=== PATIENT | female | born 1970 | race Caucasian/White ===

== ENCOUNTER 2021-02-12 10:25 | Day surgery (SDC) | payer OTHER, SELFPAY ==
[2021-02-09 08:28] VITALS: BMI 36.8
--- NOTE | 2021-02-10 15:16 | HO.ANESPROP2 ---
Documented by User: Jacqueline Pavon 02/10/21 15:17 HPI - Anesthesia Eval Consult details Narrative: 50yo F for Colonoscopy [facility] Past Medical History Medical History (Updated 02/09/21 @ 08:27 by Allyson Godinez) Arthritis Surgical History Surgical History (Updated 02/09/21 @ 08:27 by Allyson Godinez) H/O colonoscopy History of esophagogastroduodenoscopy (EGD) Hx of bilateral breast reduction surgery Hx of section Hx of laparoscopic gastric banding Hx of repair of left rotator cuff Social History Social History (Updated 02/09/21 @ 08:27 by Allyson Godinez) Smoking Status: Never smoker Second Hand Smoke Exposure: Yes Substance Use Frequency: Occasionally Advance Directives: No Advance Directives Information Provided: Yes Meds Allergies Allergy/AdvReac Type Severity Reaction Status Date / Time oxycodone [From PERCOCET] Allergy Intermediate IRRITABILITY, Verified 02/12/21 11:24 RASH meperidine [Demerol] Allergy Unknown Unknown Verified 02/09/21 08:25 hydrocodone [From VICODIN] AdvReac Intermediate Rash Verified 02/12/21 11:23 Home Medications Medication Instructions Recorded Confirmed Last Taken Type duloxetine 30 mg PO QAM 02/09/21 02/09/21 Unknown History duloxetine 60 mg PO QAM 02/09/21 02/09/21 Unknown History lorazepam 1 tab PO BID PRN 02/09/21 02/09/21 Unknown History pantoprazole 1 tab PO BID 02/09/21 02/09/21 Unknown History Exam Exam Date and Time: February 10, 2021 1516 Height,Weight and Vital Signs: Height 4 ft 9 in Weight 77.111 kg Assessment and Plan Assessment Anesthesia Assessment: Chart Reviewed Documented by User: Mary Villanueva 02/12/21 12:12 [facility] Past Medical History Medical History (Updated 02/09/21 @ 08:27 by Allyson Godinez) Arthritis Family History Family history of problems with anesthesia: No Surgical History Surgical History (Updated 02/09/21 @ 08:27 by Allyson Godinez) H/O colonoscopy History of esophagogastroduodenoscopy (EGD) Hx of bilateral breast reduction surgery Hx of section Hx of laparoscopic gastric banding Hx of repair of left rotator cuff History of Problems with Anesthesia: No Social History Social History (Updated 02/09/21 @ 08:27 by Allyson Godinez) Smoking Status: Never smoker Second Hand Smoke Exposure: Yes Substance Use Frequency: Occasionally Advance Directives: No Advance Directives Information Provided: Yes Meds Allergies Allergy/AdvReac Type Severity Reaction Status Date / Time oxycodone [From PERCOCET] Allergy Intermediate IRRITABILITY, Verified 02/12/21 11:24 RASH meperidine [Demerol] Allergy Unknown Unknown Verified 02/09/21 08:25 hydrocodone [From VICODIN] AdvReac Intermediate Rash Verified 02/12/21 11:23 Home Medications Medication Instructions Recorded Confirmed Last Taken Type duloxetine 30 mg PO QAM 02/09/21 02/09/21 Unknown History duloxetine 60 mg PO QAM 02/09/21 02/09/21 Unknown History lorazepam 1 tab PO BID PRN 02/09/21 02/09/21 Unknown History pantoprazole 1 tab PO BID 02/09/21 02/09/21 Unknown History Exam Height,Weight and Vital Signs: Vital Signs Temp Pulse Resp BP Pulse Ox 98 F 66 20 115/57 L 99 02/12/21 11:03 02/12/21 11:03 02/12/21 11:03 02/12/21 11:03 02/12/21 11:03 Airway Mallampati Class: II TM Dist: >3cm Neck ROM: Full Loose/Missing/Broken Teeth: No Heart: RRR Lungs: CTAB Assessment and Plan Assessment Anesthesia Assessment: Anesthesia Plan Discussed and Chart Reviewed Final Anesthetic Review NPO: Yes ASA Class: II Final Preanesthetic Review: No Changes in Pt Med Stat, Meds/Allgs Chart Reviewed and Consent Obtained/Reviewed Patient Risk: Low Procedure Risk: Low Assessment/Block/Sedation in SS: Assess/Block/Sedation-SS Anesthetic Plan Anesthetic Plan: MAC: Disposition: Standard PACU
--- NOTE | 2021-02-12 10:25 | MHC.SHP ---
Pre-Procedural Eval Section B Chief Complaint: Hx of Colon Polyps Details of Present Illness: poor prep last colonoscopy Relevant Family History (Specify if Yes): No Relevant Social History: None Present Medications: see Short Stay Collaborative assessment Medical History: Significant History (GERD, barretts) History of Previous Operations: Relevant previous surgery/procedure and date(s) (H/O colonoscopy History of esophagogastroduodenoscopy (EGD) Hx of bilateral breast reduction surgery Hx of section Hx of laparoscopic gastric banding Hx of repair of left rotator cuff) Allergies: Allergies Allergy/AdvReac Type Severity Reaction Status Date / Time hydrocodone [From VICODIN] Allergy Intermediate ANXIETY Unverified 07/17/20 16:22 oxycodone [From PERCOCET] Allergy Intermediate IRRITABILITY, Unverified 07/17/20 16:22 RASH meperidine [Demerol] Allergy Unknown Unknown Verified 02/09/21 08:25 Review of Systems Sugical H&P ROS: Negative: Constitution, Cardiovascular, Respiratory, Neurological, Psychiatric, Hem-Onc, Allergic/Immunologic, Gastrointestinal, Genitourinary, Musculoskeletal, Integumentary, Endocrine and Eyes/Ears/Nose/Throat Exam Surgical H&P Exam: Normal: HEENT, Normal: Heart, Normal: Lungs, Normal: Extremities, Normal: Abdomen, Normal: Skin and Normal: Neurological Plan Diagnosis/Plan: Unchanged I have reviewed the history and physical and performed a pertinent physical examination on my patient. No changes have occurred unless specified.
[2021-02-12 11:03] VITALS: BP 115/57; PULSE 66; RESP 20; TEMP 36.6; O2SAT 99
[2021-02-12 11:05] VITALS: BMI 38.9
[2021-02-12] MEDS: Lactated Ringers 1,000 ML 100 ML IVCONT (11:21)
--- NOTE | 2021-02-12 12:05 | PM.OP ---
Brief Operative Note Date of Service: 02/12/21 Pre-op diagnosis: hx of poor prep on prior colonoscopy Post-op diagnosis: same Procedure: see op note Surgeon: Frannie Reno MD Anesthesia: MAC Estimated blood loss (mL): 0 Condition: stable Disposition: PACU
--- NOTE | 2021-02-12 12:06 | P.OP_ITS ---
Operative Note Operative Note Date of Service: 02/12/21 Narrative: Operative Information Procedure Description: Colonoscopy COLONOSCOPY Instrument: Olympus variable stiffness pediatric scope 190L Colonoscopy Monitoring: Vital signs and clinical assessment, continuous EKG monitoring, Pulse oximetry, Carbon Dioxide monitoring and blood pressure monitoring were done throughout the procedure. Colon withdrawal time was 19 minutes. Procedure: The patient was placed in the left lateral decubitis position and pre-procedure medications were administered. After a digital rectal examination of the ano-rectum, the video colonoscope was inserted into the rectum and advanced through the colon to the cecum/TI. The colonoscope was slowly withdrawn in a retrograde panoramic fashion and the colon mucosa was carefully examined including a retroflexed view of the rectum. Findings and interventions are described below. Procedure Difficulty:moderate due to looping Findings: Terminal Ileum-unable to intubate due to looping Cecum:normal Ascending Colon: normal Transverse Colon -normal Descending Colon:normal Sigmoid Colon: normal Rectum: Retroflexion with small to moderate sized internal hemorrhoids, grade I Anorectum - normal Colon preparation: [place] Bowel Preparation Scale Right colon; 2 Transverse colon: 2 Left colon; 1 (0 = Unprepared colon segment with mucosa not seen due to solid stool that cannot be cleared. 1 = Portion of mucosa of the colon segment seen, but other areas of the colon segment not well seen due to staining, residual stool and/or opaque liquid. 2 = Minor amount of residual staining, small fragments of stool and/or opaque liquid, but mucosa of colon segment seen well. 3 = Entire mucosa of colon segment seen well with no residual staining, small fragments of stool or opaque liquid) Impression and Post Procedure Diagnosis: internal hemorrhoids Plan: High fiber diet leaflet Avoid straining at stool, epsom salts and sitz bath, anusol supps or cream prn Repeat Colonoscopy in 3 years or earlier if clinically indicated, next time co nsider adult scope Above findings were reviewed with the patient and relevant handouts were provided if indicated.
[2021-02-12 12:11] VITALS: BP 148/64; PULSE 65; RESP 16; TEMP 36.7; O2SAT 100
[2021-02-12 12:26] VITALS: BP 131/64; PULSE 60; RESP 17; TEMP 36.7; O2SAT 100
== END 2021-02-12 13:02 | disposition home or self-care (01) ==
PROVIDERS: PCP Internal Medicine; Visit Provider Internal Medicine Gastroenterology
PROC: 0DJD8ZZ Inspection of Lower Intestinal Tract, Via Natural or Artificial Opening Endoscopic (ICD-10-PCS; CPT 45378; principal; 2021-02-12 11:20)
DX: Z12.11 Encounter for screening for malignant neoplasm of colon (principal); Z86.010 Personal history of colon polyps; K64.0 First degree hemorrhoids; K21.9 Gastro-esophageal reflux disease without esophagitis; Z98.84 Bariatric surgery status; Z79.899 Other long term (current) drug therapy; Z88.8 Allergy status to other drugs, medicaments and biological substances
CPT/HCPCS: 45378

== ENCOUNTER → 2021-02-27 09:20 | Outpatient (BNVA) | payer OTHER, SELFPAY | PROVIDERS: PCP Internal Medicine; Visit Provider Internal Medicine Gastroenterology ==

== ENCOUNTER 2022-04-26 08:12 | Outpatient (REF) | payer OTHER, SELFPAY ==
--- NOTE | ~2022-04-26 | XR_ITS ---
EXAMINATION: XR CHEST CLINICAL INFORMATION: Shortness of breath and congestion COMPARISON: Previous chest x-ray [address] from 2019 TECHNIQUE: 2 views of the chest were obtained. FINDINGS: The cardiac and mediastinal contours are normal. The lungs are clear. There is no pleural effusion or pneumothorax. There are surgical tacks or anchors projecting over the left humeral head. Bony structures are otherwise unremarkable. XR/XR chest 2V IMPRESSION: No evidence for acute disease in the chest.
--- NOTE | ~2022-04-26 | XR_ITS ---
EXAMINATION: XR SINUSES CLINICAL INFORMATION: Congestion and sinus pressure COMPARISON: None TECHNIQUE: 4 views of the paranasal sinuses FINDINGS: There is underaeration or hypoplasia of the right frontal sinus. Paranasal sinuses are otherwise well aerated and clear. No opacification or air-fluid levels just sinusitis is seen. Bony structures are unremarkable. XR/XR sinus min 3V IMPRESSION: Clear paranasal sinuses.
== END 2022-04-26 08:13 | disposition home or self-care (01) ==
LOC: HO.XRAY 08:12
PROVIDERS: Visit Provider Internal Medicine
DX: R05.9 Cough, unspecified (principal); R06.02 Shortness of breath; R09.89 Other specified symptoms and signs involving the circulatory and respiratory systems
CPT/HCPCS: 70220; 71046

== ENCOUNTER 2024-06-29 09:13 | Outpatient (REF) | payer OTHER, SELFPAY ==
[2024-06-29 10:34] LABS: MANUAL DIFF FLAG NO
[2024-06-29 10:38] LABS: Basophils Absolute Auto 0.1 X10*3/uL (0.0-0.2); Basophils Percent Auto 1.1 % (0-2); Eosinophils Absolute Auto 0.1 X10*3/uL (0.0-0.4); Eosinophils Percent Auto 1.2 % (0-4); Hematocrit 40.8 % (37.0-47.0); Hemoglobin 14.2 g/dl (12.0-16.0); Imm Gran Abs Auto 0.02 X10*3/uL (0.00-0.03); Imm Gran Pct Auto 0.2 % (0.0-0.4); Lymphocytes Absolute Auto 3.1 X10*3/uL (1.2-4.9); Lymphocytes Percent Auto 36.6 % (20-40); Mean Corpuscular HGB Conc 34.8 g/dl (31.0-35.0); Mean Corpuscular Hemoglobin 32.4 pg (27.0-33.0); Mean Corpuscular Volume 93.2 fL (80.0-98.0); Mean Platelet Volume 10.6 fL (9.4-12.3); Monocytes Absolute Auto 0.7 X10*3/uL (0.1-1.2); Monocytes Percent Auto 7.9 % (2-11); Neutrophils Absolute Auto 4.4 x10*3/uL (2.0-8.3); Platelet Count 270 X10*3/uL (160-400); Red Blood Count 4.38 X10*6/uL (4.20-5.50); Red Cell Distribution Width 13.4 % (11.0-16.0); White Blood Count 8.4 X10*3/uL (4.8-10.8)
[2024-06-29 11:46] LABS: Alanine Aminotransferase 19 U/L (0-31); Albumin Level 4.2 g/dL (3.5-5.0); Alkaline Phosphatase 77 U/L (39-117); Anion Gap 7 (12-20); Aspartate Amino Transferase 23 U/L (5-31); Bilirubin Total 0.4 mg/dL (0.0-1.0); Blood Urea Nitrogen 11 mg/dL (9-16); Calcium 9.5 mg/dL (8.4-10.2); Carbon Dioxide 27 mmol/L (22-29); Chloride 110 mmol/L (96-108); Estimated Glomerular Filt Rate > 60; Glucose Random 96 mg/dL (60-115); Potassium 3.8 mmol/L (3.3-5.1); Sodium 140 mmol/L (135-145); Total Protein 7.3 g/dL (6.5-8.0)
[2024-06-29 12:03] LABS: Ferritin 60 ng/mL (10-250); TSH reflex Free T4 1.74 uIU/mL (0.32-4.0)
[2024-06-29 12:16] LABS: Folate 13.6 ng/mL (> or = 4.0); Vitamin B12 318 pg/mL (200-900)
[2024-07-03 12:53] LABS: IgA 191 mg/dL (47-310); IgG 1187 mg/dL (600-1640); IgM 134 mg/dL (50-300)
[2024-07-03 13:58] LABS: Transglutaminase Ab IgG <1.0 U/mL
[2024-07-03 14:03] LABS: Zinc 61 mcg/dL (60-130)
[2024-07-05 01:14] LABS: Vitamin A 61 mcg/dL (38-98)
[2024-07-05 10:33] LABS: Vitamin C 0.6 mg/dL (0.3-2.7)
[2024-07-06 08:03] LABS: Vitamin B1 9 nmol/L (8-30)
[2024-07-06 08:07] LABS: Alpha-Tocopherol 14.1 mg/L (5.7-19.9); Beta-Gamma Tocopherol 2.1 mg/L (<=4.3)
[2024-07-06 17:58] LABS: Vitamin K1 398 pg/mL (130-1500)
[2024-07-07 15:09] LABS: Nicotinamide <20 ng/mL (see note); Vit B3 - Nicotinic Acid <20 ng/mL (see note)
[2024-07-07 15:13] LABS: Vitamin B5 (Pantothenic Acid) 75 ng/mL (<275)
== END 2024-06-29 09:14 | disposition home or self-care (01) ==
LOC: HO.LAB 09:13
PROVIDERS: PCP Internal Medicine; Visit Provider Internal Medicine Gastroenterology
DX: K75.81 Nonalcoholic steatohepatitis (NASH) (principal); K22.70 Barrett's esophagus without dysplasia; K62.5 Hemorrhage of anus and rectum; E46 Unspecified protein-calorie malnutrition; R10.33 Periumbilical pain; G89.29 Other chronic pain
CPT/HCPCS: 36415; 80053; 82180; 82306; 82607; 82728; 82746; 82784; 84207; 84425; 84443; 84446; 84590; 84591; 84597; 84630; 85025; 86364

== ENCOUNTER 2024-06-29 09:13 | Outpatient (AMB) | payer OTHER, SELFPAY ==
--- NOTE | 2024-06-29 09:16 | A.OFFVIS_ITS ---
Vital Signs 06/29/24 09:17 Height 4 ft 9 in Weight 184 lb 4.903 oz BMI 39.9 BP 142/80 H Blood Pressure Location Rt brachial Position Sitting Pulse 68 Pulse Source Pulse Oximeter Pulse Oximetry (%) 97 Oxygen Delivery Method Room Air Intake Visit Reasons: follow up Greenfield's Esophagus Intake Note: Irbian presents in office today for a scheduled FUV. CC: Pt reports having sx consistent with a diverticulitis flare up. Pt states that they have been having consistent sx but have noticed that their sx have been getting worse instead of better. Bloating, mucus in the stool, nausea, abdominal cramping/pain, diarrhea, reported by pt. Photographic Platemaker Required: No Accompanied by: Self / Same As Patient Allergies oxycodone [From PERCOCET] Allergy (Intermediate, Verified 06/29/24 09:17) IRRITABILITY, RASH meperidine [Demerol] Allergy (Unknown, Verified 06/29/24 09:17) Unknown hydrocodone [From VICODIN] Adverse Reaction (Intermediate, Verified 06/29/24 09:17) Rash HPI HPI follow up Greenfield's Esophagus: Details: 53 yr old f being seen for f/u RECAP: index visit 07/2019 2 weeks of llq abdo pain, can be severe, like labor pains CT scan with diverticulitis 05/2019 in descending colon, also has lap band she had egd and colonoscopy 2017 and was told they were normal. I repeated EGD colonoscopy--she has h pylori (treated many times) and barretts w HGD, colonoscopy with poor prep she was referred to [facility] for RFA and is still being followed for the barretts--due to recurrent disease she was referred to [facility] and she had cryotherapy to areas of persistent high grade squamous dysplasia in proximal esophagus . I did repeat colonoscopy 2020 and it was clear of polyps, hemorrhoids were noted She is still seeing Freddy at [facility] for cryotherapy for her esophagus INTERIM: she feels well apart from the uncertainty of her esophgeal issues she had colonoscopy last year and was normal per her report at [facility] she has a lot of mucous on the stool, sometimes blood in stool as well she has chronic bloating, she has feeling she cant eat she has nausea sometimes as well EXAM: GENERAL: The patient is well developed and nontoxic. VITAL SIGNS:see workflow HEENT: Nonicteric sclerae, PERRLA, EOMI. Oropharynx clear. Moist mucous membranes. Conjunctivae appear well perfused. No thyroid mass. CHEST: Chest wall is nontender. HEART: Regular rate and rhythm without murmurs. LUNGS: Clear to auscultation bilaterally. ABDOMEN: Soft, positive bowel sounds, nontender, no organomegaly.no flank tenderness SKIN: No rash, no excessive bruising, petechiae, or purpura. NEUROLOGIC: Cranial nerves II-XII intact without motor/sensory deficit. Psych: normal affect Assessments 1. 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 bloating, satiety, and mucous AL --uncertain etiology, ?IBD, SIBO, CHO intolerance, motility PLAN: 1/ check labs as below 2/ GES 3/ CT e 4/trial of rifaximin and then probiotics 5/ get notes from [facility] Medical History Arthritis Surgical History History of cryosurgery Hx of bilateral breast reduction surgery Hx of repair of left rotator cuff Hx of section Hx of laparoscopic gastric banding History of esophagogastroduodenoscopy (EGD) H/O colonoscopy Social History Second Hand Smoke Exposure: Yes Physical Exam Vital Signs: Last Vital Signs Pulse 68 06/29/24 09:17 BP 142/80 H 06/29/24 09:17 Pulse Ox 97 06/29/24 09:17 Oxygen Delivery Method Room Air 06/29/24 09:17 BMI result Body Mass Index 39.9 Assessment & Plan Assessment & Plan (1) Greenfield esophagus: Code(s): K22.70 - Greenfield's esophagus without dysplasia Category: Medical Plan: see above (2) Rectal bleed: Code(s): K62.5 - Hemorrhage of anus and rectum Category: Medical Plan: see above (3) Malnutrition: Code(s): E46 - Unspecified protein-calorie malnutrition Category: Medical Plan: above Orders: Orders Comprehensive Met. Panel Today E46 - Unspecified protein-calorie malnutrition, K22.70 - Greenfield's esophagus without dysplasia, K62.5 - Hemorrhage of anus and rectum, K75.81 - Nonalcoholic steatohepatitis (MARIE) Vitamin A Today E46 - Unspecified protein-calorie malnutrition, K22.70 - Ba rrett's esophagus without dysplasia, K62.5 - Hemorrhage of anus and rectum Vitamin B1 Today E46 - Unspecified protein-calorie malnutrition, K22.70 - Greenfield's esophagus without dysplasia, K62.5 - Hemorrhage of anus and rectum Vitamin B12 and Folate Today E46 - Unspecified protein-calorie malnutrition, K22.70 - Greenfield's esophagus without dysplasia, K62.5 - Hemorrhage of anus and rectum Vitamin B3 (Niacin) Today E46 - Unspecified protein-calorie malnutrition, K22.70 - Greenfield's esophagus without dysplasia, K62.5 - Hemorrhage of anus and rectum Vitamin B6 Today E46 - Unspecified protein-calorie malnutrition, K22.70 - Greenfield's esophagus without dysplasia, K62.5 - Hemorrhage of anus and rectum Vitamin C Today E46 - Unspecified protein-calorie malnutrition, K22.70 - Greenfield's esophagus without dysplasia, K62.5 - Hemorrhage of anus and rectum Vitamin E Today E46 - Unspecified protein-calorie malnutrition, K22.70 - Greenfield's esophagus without dysplasia, K62.5 - Hemorrhage of anus and rectum Zinc Today E46 - Unspecified protein-calorie malnutrition, K22.70 - Greenfield's esophagus without dysplasia, K62.5 - Hemorrhage of anus and rectum Ferritin Today E46 - Unspecified protein-calorie malnutrition, K22.70 - Greenfield's esophagus without dysplasia, K62.5 - Hemorrhage of anus and rectum TSH reflex Free T4 Today E46 - Unspecified protein-calorie malnutrition, K22.70 - Greenfield's esophagus without dysplasia, K62.5 - Hemorrhage of anus and rectum CT enterography Today R10.33 - Periumbilical pain NM gastric emptying study Today R68.81 - Early satiety Complete Blood Count Auto Diff Today E46 - Unspecified protein-calorie malnutrition, K22.70 - Greenfield's esophagus without dysplasia, K62.5 - Hemorrhage of anus and rectum Vitamin B5 (Pantothenic Acid) Today E46 - Unspecified protein-calorie malnutrition, K22.70 - Greenfield's esophagus without dysplasia, K62.5 - Hemorrhage of anus and rectum Vitamin D 25-OH Total Today E46 - Unspecified protein-calorie malnutrition, K22.70 - Greenfield's esophagus without dysplasia, K62.5 - Hemorrhage of anus and rectum Vitamin K1 Today E46 - Unspecified protein-calorie malnutrition, K22.70 - Greenfield's esophagus without dysplasia, K62.5 - Hemorrhage of anus and rectum Immunoglobulins,IgG IgA IgM Today E46 - Unspecified protein-calorie malnutrition, K22.70 - Greenfield's esophagus without dysplasia, K62.5 - Hemorrhage of anus and rectum Lactoferrin, Fecal, Quant. Today E46 - Unspecified protein-calorie malnutrition, K22.70 - Greenfield's esophagus without dysplasia, K51.50 - Left sided colitis without complications, K62.5 - Hemorrhage of anus and rectum Transglutaminase Ab IgG Today E46 - Unspecified protein-calorie malnutrition, G89.29 - Other chronic pain, K22.70 - Greenfield's esophagus without dysplasia, K62.5 - Hemorrhage of anus and rectum, R10.33 - Periumbilical pain Medications: New rifaximin 550 mg PO TID 42 tabs 0RF 2 weeks Coding Level of Care Code Est Pt Level 4 (96299) Diagnoses Greenfield esophagus K22.70 Rectal bleed K62.5 Malnutrition E46
[2024-06-29 09:17] VITALS: BP 142/80; PULSE 68; O2SAT 97; BMI 39.9
== END 2024-06-29 09:42 | disposition home or self-care (01) ==
PROVIDERS: PCP Internal Medicine; Visit Provider Internal Medicine Gastroenterology
DX: K22.70 Barrett's esophagus without dysplasia (principal); K62.5 Hemorrhage of anus and rectum; E46 Unspecified protein-calorie malnutrition
CPT/HCPCS: 99214

== ENCOUNTER → 2024-08-14 08:18 | Outpatient (REF) | payer OTHER, SELFPAY ==
--- NOTE | ~2024-08-14 | NM_ITS ---
EXAMINATION: NM RADIONUCLIDE SOLID FOOD GASTRIC EMPTYING 4-HOUR STUDY CLINICAL INFORMATION: Early satiety. COMPARISON: None TECHNIQUE: A standard meal consisting of 4 oz of Egg Beaters brand tagged with 800 microcuries Tc-99m Sulfur Colloid, 8 oz water and 1 1/2 of toast with jelly was administered orally to the patient. Images were obtained using a dual head gamma camera in the anterior and posterior projections over of the stomach immediately post ingestion and at hourly intervals up to 4 hours post ingestion. The anterior and posterior counts at each time interval were averaged using the geometric mean and expressed as percentage of the immediate post ingestion counts. FINDINGS: There is good visualization of activity in the stomach immediately post ingestion. As the study progresses, there is good clearance of activity from the stomach and visualization of progressively increasing small bowel activity. By the end of the study, there is significant retention noted in the stomach. Retention in the stomach at each time interval was: 1 hour 71% (normal 37%-90%) 2 hours 54% (normal 30%-60%) 3 hours 42% 4 hours 33% (normal 0%-10%) AK/AK gastric emptying study IMPRESSION: Abnormal grade 2 delayed 4-hour solid food gastric emptying study. For solid meal, rapid gastric emptying is less than 30% at 60 minutes. Delayed gastric emptying criteria is more than 60% remaining at 120 minutes or more than 10% at 240 minutes. The 4-hour value is the best discriminator of a normal or abnormal result). Gastric emptying study grading per JNMT Consensus Recommendations in 2008 (https://tech.snmjournals.org/content/36/1/44) Grade 1 (mild retention): 11-20% at 4h Grade 2 (moderate retention): 21-35% at 4h Grade 3 (severe retention): 36-50% at 4h Grade 4 (very severe retention): >50% retention at 4h Electronically signed by: Taylor Crowder MD 08/20/2024 12:05 PM EDT
== END ==
LOC: HO.NUCMED 08:18
PROVIDERS: PCP Internal Medicine; Visit Provider Internal Medicine Gastroenterology
DX: R68.81 Early satiety (principal)
CPT/HCPCS: 78264; A9541

== ENCOUNTER 2024-08-21 09:23 | Outpatient (REF) | payer OTHER, SELFPAY ==
--- NOTE | ~2024-08-21 | CT_ITS ---
EXAMINATION: CT ABDOMEN AND PELVIS WITHOUT IV CONTRAST CLINICAL INFORMATION: Periumbilical pain COMPARISON: None TECHNIQUE: Multiple axial images were obtained from the superior aspect of the liver through the pubic symphysis without intravenous contrast. Images were evaluated on independent dedicated 3-D workstation and 3-D images were reconstructed with concurrent radiologist supervision and subsequently interpreted. Oral contrast was not administered. This CT examination was performed using dose optimization techniques as appropriate, variously including the following: *Automated exposure control *Adjustment of mA and/or kV according to patient size (this includes techniques or standardized protocols for targeted exams where dose is matched to indication/reason for exam; i.e. extremities or head) *Use of iterative reconstruction technique DLP: 805 mGy-cm FINDINGS: LUNG BASES: Trace bilateral pleural effusions. Atelectatic changes. CARDIOMEDIASTINUM: The visualized heart is normal in size without pericardial effusion. No coronary artery calcification. LIVER: Homogeneous in attenuation. Normal in size. GALLBLADDER: Noninflamed. BILIARY SYSTEM: No intrahepatic or extrahepatic biliary dilation. PANCREAS: Homogeneous in attenuation. SPLEEN: Normal in size. GENITOURINARY: No contour deforming masses. No perinephric fluid collection. No renal calculi. No hydroureteronephrosis. ADRENAL GLANDS: Unremarkable. REPRODUCTIVE: Uterus and and bilateral adnexa are unremarkable. GASTROINTESTINAL: Circumferential mural thickening of the distal esophagus of approximately 1 cm. The visualized alimentary tract is normal in course. No evidence of obstruction. APPENDIX: The appendix is seen in its entirety and is unremarkable. PERITONEUM: No pneumoperitoneum. No intra-abdominal fluid collection. VASCULATURE: No abdominal aortic aneurysm. LYMPH NODES: No pathologically enlarged abdominal or pelvic lymph nodes. SOFT TISSUES/MUSCULOSKELETAL: Small fat-containing umbilical hernia with periumbilical inflammatory stranding. There is no acute fracture or significant focal osseous lesion. CT/CT abdomen pelvis wo IV con IMPRESSION: 1. Small fat-containing umbilical hernia with mild inflammatory stranding. 2. Circumferential thickening of the distal esophagus. Correlate with symptoms of gastroesophageal reflux disease and prior endoscopy. Underlying malignancy not excluded. 3. Trace bilateral pleural effusions. Fleischner guidelines were followed. Electronically signed by: Erik Carter DO 09/18/2024 07:16 PM EST
[2024-08-21] MEDS: Sorbitol/Mannit/Xanth Imaging 500 ML LIQUID 1500 ML PO (11:07)
[2024-08-23 09:09] LABS: Creatinine POC 0.9 mg/dL (0.5-1.4); GFR POC > 60
== END 2024-08-21 09:24 | disposition home or self-care (01) ==
LOC: HO.CT 09:23
PROVIDERS: PCP Internal Medicine; Visit Provider Internal Medicine Gastroenterology
DX: R10.33 Periumbilical pain (principal)
CPT/HCPCS: 74176; 82565

== ENCOUNTER 2024-09-17 13:06 | Outpatient (AMB) | payer OTHER, SELFPAY ==
--- NOTE | 2024-09-17 13:06 | MHC.OFFVIS ---
Intake Visit Reasons: Dysphagia Intake Note: Irbian presents in the office as a follow up for her dysphagia. Allergies oxycodone [From PERCOCET] Allergy (Intermediate, Verified 09/17/24 13:08) IRRITABILITY, RASH meperidine [Demerol] Allergy (Unknown, Verified 09/17/24 13:08) Unknown hydrocodone [From VICODIN] Adverse Reaction (Intermediate, Verified 09/17/24 13:08) Rash HPI HPI Dysphagia: Details: 53 yr old f being called for f/u RECAP: index visit 07/2019 2 weeks of llq abdo pain, like labor pains CT scan with diverticulitis 05/2019 in descending colon, also has lap band she had egd and colonoscopy 2017 and was told they were normal. I repeated EGD colonoscopy--she has h pylori (treated many times) and barretts w HGD, colonoscopy with poor prep she was referred to [facility] for RFA and is still being followed for the barretts--due to recurrent disease she was referred to [facility] and she had cryotherapy to areas of persistent high grade squamous dysplasia in proximal esophagus . I did repeat colonoscopy 2020 and it was clear of polyps, hemorrhoids were noted She is still seeing Freddy at [facility] for cryotherapy for her esophagus I ordered GES: 08/23- pos 30% at 4 hrs INTERIM: She has been having more acid reflux and dysphagia since cryotherapy has apptm for dilation and repeat bx she saw a thoracic surgeon and esophagectomy might be the next step she does have satiety and reflux EXAM: GENERAL: The patient is well developed and nontoxic, talking easily, good color Assessments 1. Barretts esophagus and high grade squamous cell dysplasia being seen at [facility] 2. bloating, satiety, likely 2.2 gastroparesis possibly from 1. above --I ordered a Ct scan,not read yet but no mass seen to my read, dilated stomach noted. PLAN: 1/ f/u with [facility] 2/ discussed low fat and low fober diet, might need G-POEM or pyloroplasty, vs medical rx with regaruna gomez 3/ check labs for 2ry causes of gastroparesis PFSH Medical History Arthritis Surgical History History of cryosurgery Hx of bilateral breast reduction surgery Hx of repair of left rotator cuff Hx of section Hx of laparoscopic gastric banding History of esophagogastroduodenoscopy (EGD) H/O colonoscopy Social History Second Hand Smoke Exposure: Yes Telehealth Telehealth Telehealth Platform: [facility] Location of provider rendering services: practice address Location of patient: address on file Patient Identification confirmed using: Name, : Yes Telehealth method: video Patient verbally consented to treatment: Yes Patient verbally consented to billing insurance company: Yes Patient informed of any privacy concerns related to visit: Yes Minutes spent on Phone/Video with Pt.: 11 Assessment & Plan Assessment & Plan (1) Greenfield esophagus: Code(s): K22.70 - Greenfield's esophagus without dysplasia Category: Medical Plan: see above Orders: Orders Complete Blood Count Auto Diff Today E46 - Unspecified protein-calorie malnutrition Ferritin Today E46 - Unspecified protein-calorie malnutrition Calcium, Ionized Today E46 - Unspecified protein-calorie malnutrition, E83.52 - Hypercalcemia Magnesium Today E46 - Unspecified protein-calorie malnutrition BETH Reflex Titer and Pattern Today E46 - Unspecified protein-calorie malnutrition, R79.82 - Elevated C-reactive protein (CRP) HU Antibody Today E46 - Unspecified protein-calorie malnutrition Yo Antibody Today E46 - Unspecified protein-calorie malnutrition Zinc Today E46 - Unspecified protein-calorie malnutrition Comprehensive Met. Panel Today E46 - Unspecified protein-calorie malnutrition, K75.81 - Nonalcoholic steatohepatitis (MARIE) TSH reflex Free T4 Today E46 - Unspecified protein-calorie malnutrition Lyme IgG/IgM w/reflex to WB Today E46 - Unspecified protein-calorie malnutrition Coding Level of Care Code Tele Est Pt Level 3 (11420) Diagnoses Greenfield esophagus K22.70
== END 2024-09-17 16:09 | disposition home or self-care (01) ==
LOC: HO.HGI 13:06
PROVIDERS: PCP Internal Medicine; Visit Provider Internal Medicine Gastroenterology
DX: K22.70 Barrett's esophagus without dysplasia (principal)
CPT/HCPCS: 99213

== ENCOUNTER → 2024-09-17 13:06 | Outpatient (BNVA) | payer OTHER, SELFPAY | PROVIDERS: PCP Internal Medicine; Visit Provider Internal Medicine Gastroenterology ==

== ENCOUNTER 2024-09-18 08:50 | Outpatient (REF) | payer OTHER, SELFPAY ==
[2024-09-18 09:47] LABS: MANUAL DIFF FLAG NO
[2024-09-18 10:15] LABS: Basophils Absolute Auto 0.1 X10*3/uL (0.0-0.2); Basophils Percent Auto 1.5 % (0-2); Eosinophils Absolute Auto 0.3 X10*3/uL (0.0-0.4); Eosinophils Percent Auto 4.4 % (0-4); Hematocrit 41.6 % (37.0-47.0); Imm Gran Abs Auto 0.01 X10*3/uL (0.00-0.03); Imm Gran Pct Auto 0.1 % (0.0-0.4); Lymphocytes Absolute Auto 2.8 X10*3/uL (1.2-4.9); Lymphocytes Percent Auto 38.3 % (20-40); Mean Corpuscular HGB Conc 33.7 g/dl (31.0-35.0); Mean Corpuscular Hemoglobin 31.9 pg (27.0-33.0); Mean Corpuscular Volume 94.8 fL (80.0-98.0); Mean Platelet Volume 10.6 fL (9.4-12.3); Monocytes Absolute Auto 0.6 X10*3/uL (0.1-1.2); Monocytes Percent Auto 8.2 % (2-11); Neutrophils Absolute Auto 3.5 x10*3/uL (2.0-8.3); Neutrophils Percent Auto 47.5 % (45-73); Platelet Count 252 X10*3/uL (160-400); Red Blood Count 4.39 X10*6/uL (4.20-5.50); Red Cell Distribution Width 13.2 % (11.0-16.0); White Blood Count 7.3 X10*3/uL (4.8-10.8)
[2024-09-18 12:10] LABS: Alanine Aminotransferase 18 U/L (0-31); Albumin Level 4.1 g/dL (3.5-5.0); Alkaline Phosphatase 72 U/L (39-117); Anion Gap 8 (12-20); Aspartate Amino Transferase 25 U/L (5-31); Bilirubin Total 0.6 mg/dL (0.0-1.0); Blood Urea Nitrogen 8 mg/dL (9-16); Calcium 9.1 mg/dL (8.4-10.2); Carbon Dioxide 28 mmol/L (22-29); Chloride 110 mmol/L (96-108); Estimated Glomerular Filt Rate > 60; Ferritin 73 ng/mL (10-250); Glucose Random 93 mg/dL (60-115); Potassium 3.9 mmol/L (3.3-5.1); Sodium 142 mmol/L (135-145); TSH reflex Free T4 1.51 uIU/mL (0.32-4.0)
[2024-09-19 18:34] LABS: Lyme Abs Screen <0.90 index
[2024-09-20 11:23] LABS: Anti Nuclear Antibody Screen NEGATIVE (NEGATIVE)
[2024-09-20 14:32] LABS: Calcium, Ionized 5.3 mg/dL (4.7-5.5)
[2024-09-21 13:34] LABS: Zinc 66 mcg/dL (60-130)
[2024-10-10 19:18] LABS: Hu Antibody Screen, IFA Serum NEGATIVE (NEGATIVE); Yo Antibody, Serum Screen NEGATIVE (NEGATIVE)
== END 2024-09-18 08:51 | disposition home or self-care (01) ==
LOC: HO.LAB 08:50
PROVIDERS: PCP Internal Medicine; Visit Provider Internal Medicine Gastroenterology
DX: E46 Unspecified protein-calorie malnutrition (principal); E83.52 Hypercalcemia; R79.82 Elevated C-reactive protein (CRP); K75.81 Nonalcoholic steatohepatitis (NASH)
CPT/HCPCS: 36415; 80053; 82330; 82728; 83735; 84181; 84443; 84630; 85025; 86038; 86255; 86256; 86617; 86618

== ENCOUNTER 2024-10-08 09:25 | Outpatient (AMB) | payer OTHER, SELFPAY ==
--- NOTE | 2024-10-08 09:27 | MHC.OFFVIS ---
Vital Signs 10/08/24 09:30 Height 4 ft 9 in Weight 174 lb 2.643 oz BMI 37.7 BP 118/53 L Blood Pressure Location Lt brachial Position Sitting Pulse 71 Intake Visit Reasons: 4 month follow up Intake Note: Irbian presents in the office as a 4 month follow up. CC: States that she has an appt tomorrow to have her esophagus stretched tomorrow at [facility]. Bench Assembler Required: No Allergies oxycodone [From PERCOCET] Allergy (Intermediate, Verified 10/08/24 09:34) IRRITABILITY, RASH meperidine [Demerol] Allergy (Unknown, Verified 10/08/24 09:34) Unknown hydrocodone [From VICODIN] Adverse Reaction (Intermediate, Verified 10/08/24 09:34) Rash HPI HPI 4 month follow up: Details: 53 yr old f being called for f/u RECAP: index visit 07/2019 2 weeks of llq abdo pain, like labor pains CT scan with diverticulitis 05/2019 in descending colon, also has lap band she had egd and colonoscopy 2017 and was told they were normal. I repeated EGD colonoscopy--she has h pylori (treated many times) and barretts w HGD, colonoscopy with poor prep she was referred to [facility] for RFA and is still being followed for the barretts--due to recurrent disease she was referred to [facility] and she had cryotherapy to areas of persistent high grade squamous dysplasia in proximal esophagus . I did repeat colonoscopy 2020 and it was clear of polyps, hemorrhoids were noted She is still seeing Freddy at [facility] for cryotherapy for her esophagus I ordered GES: 08/23- pos 30% at 4 hrs INTERIM: she has been getting dilation with Dr Amaya recovering slowly taking liquids taking augmentin for head cold talked about surgical options for her condition EXAM: GENERAL: The patient is well developed and nontoxic. VITAL SIGNS:see workflow HEENT: Nonicteric sclerae, PERRLA, EOMI. Oropharynx clear. Moist mucous membranes. Conjunctivae appear well perfused. No thyroid mass. CHEST: Chest wall is nontender. HEART: Regular rate and rhythm without murmurs. LUNGS: Clear to auscultation bilaterally. ABDOMEN: Soft, positive bowel sounds, nontender, no organomegaly.no flank tenderness SKIN: No rash, no excessive bruising, petechiae, or purpura. NEUROLOGIC: Cranial nerves II-XII intact without motor/sensory deficit. Psych: normal affect Assessments 1. Barretts esophagus and high grade squamous cell dysplasia being seen at [facility] and getting dilation 2. bloating, satiety, likely 2.2 gastroparesis possibly from 1. above PLAN: 1/ f/u with [facility] with dilation 2/ she wants second opinion [facility] 3/ change PPI to capsule [facility] Medical History Arthritis Surgical History History of cryosurgery Hx of bilateral breast reduction surgery Hx of repair of left rotator cuff Hx of section Hx of laparoscopic gastric banding History of esophagogastroduodenoscopy (EGD) H/O colonoscopy Social History Second Hand Smoke Exposure: Yes Assessment & Plan Assessment & Plan (1) Greenfield esophagus: Code(s): K22.70 - Greenfield's esophagus without dysplasia Category: Medical Plan: see above Coding Level of Care Code Est Pt Level 3 (86462) Diagnoses Greenfield esophagus K22.70
[2024-10-08 09:30] VITALS: BP 118/53; PULSE 71; BMI 37.7
== END 2024-10-08 10:04 | disposition home or self-care (01) ==
PROVIDERS: PCP Internal Medicine; Visit Provider Internal Medicine Gastroenterology
DX: K22.70 Barrett's esophagus without dysplasia (principal)
CPT/HCPCS: 99213

== ENCOUNTER 2024-12-24 12:36 | Outpatient (AMB) | payer OTHER, SELFPAY ==
--- NOTE | 2024-12-24 12:36 | A.OFFVIS_ITS ---
Intake Visit Reasons: f/u rescheduled Intake Note: Irbian presents as a video for a follow up for gastroparesis. C: Gastroparesis - she heard from [facility] and wants to discuss this and wants to know what to do next. Allergies oxycodone [From PERCOCET] Allergy (Intermediate, Verified 12/24/24 12:36) IRRITABILITY, RASH meperidine [Demerol] Allergy (Unknown, Verified 12/24/24 12:36) Unknown hydrocodone [From VICODIN] Adverse Reaction (Intermediate, Verified 12/24/24 12 :36) Rash HPI HPI f/u rescheduled: Details: 53 yr old f being called for f/u RECAP: index visit 07/2019 2 weeks of llq abdo pain, like labor pains CT scan with diverticulitis 05/2019 in descending colon, also has lap band she had egd and colonoscopy 2017 and was told they were normal. I repeated EGD colonoscopy--she has h pylori (treated many times) and barretts w HGD, colonoscopy with poor prep she was referred to [facility] for RFA and is still being followed for the inderjit ts--due to recurrent disease she was referred to [facility] and she had cryotherapy to areas of persistent high grade squamous dysplasia in proximal esophagus . I did repeat colonoscopy 2020 and it was clear of polyps, hemorrhoids were noted She is still seeing Freddy at [facility] for cryotherapy for her esophagus I ordered GES: 08/23- pos 30% at 4 hrs INTERIM: she has been on and off regards her esophagus and surgery options She is waiting to see [facility] she is taking PPI now she has issues with constipation but life long issue she takes prune juice -- miralax sparingly EXAM: GENERAL: The patient is well developed and nontoxic. Assessments 1. Barretts esophagus and high grade squamous cell dysplasia being seen at [facility] and getting dilation--suggested to have esophagectomy 2. bloating, satiety, likely 2.2 gastroparesis possibly from 1. above [facility]AN[facility] 2/ trial of motegrity see fi helps constipation and gastroparesis PFSH Medical History Arthritis Surgical History History of cryosurgery Hx of bilateral breast reduction surgery Hx of repair of left rotator cuff Hx of section Hx of laparoscopic gastric banding History of esophagogastroduodenoscopy (EGD) H/O colonoscopy Social History Second Hand Smoke Exposure: Yes Telehealth Telehealth Telehealth [facility] Location of provider rendering services: practice address Location of patient: address on file Patient Identification confirmed using: Name, : Yes Telehealth method: video Patient verbally consented to treatment: Yes Patient verbally consented to billing insurance company: Yes Patient informed of any privacy concerns related to visit: Yes Minutes spent on Phone/Video with Pt.: 6 Assessment & Plan Assessment & Plan (1) Gastroparesis: Code(s): K31.84 - Gastroparesis Category: Medical Plan: as above Medications: New prucalopride (Motegrity) 1 mg PO DAILY 30 tabs 3RF Coding Level of Care Code Tele Est Pt Level 3 (54785) Diagnoses Gastroparesis K31.84
--- OUTSIDE RECORDS SUMMARY | 2024-12-24 14:16 | XMS_ITS | Encounter Summary ---
Author Organization [facility] Address [address] [place] [address] Care Team Providers Care Dial Maker Name Role Phone Chan Wilson Primary Care Provider [phone] Encounter Details Date Type Department Care Team (Late st Contact Info) Description 06/26/2021 Orders Only [facility] Interventional Radiology [address] [place] [address] Kirill Schuster MD [address] [place] [address] [id number] Social History Tobacco Use Types Packs/Day Years Used Date Smoking Tobacco: Never Smokeless Tobacco: Never Alcohol Use Standard Drinks/Week Comments Yes 0 (1 standard drink = 0.6 oz pur e alcohol) SOCIALLY Comments No Sex and Gender Information Value Date Recorded Sex Assigned at Female 12/02/2020 12:19 AM EST Legal Sex Female 8:28 AM EST Gender Identity Female 12/02/2020 12:19 AM EST Sexual Orientation Straight 07/30/2020 9: 05 AM EDT documented as of this encounter Plan of Treatment Upcoming Encounters Date Type Department Care Team (Latest Contact Info) Description 03/04/2025 1:00 PM EDT Pre-Admission Testing [facility] Pre Surgical Center [address] [place] [address] 03/18/2025 12:30 PM EDT Hospital Encounter [facility] Endoscopy [address] [place] [address] Sudheer Hayes MD [address] [place] [address] 03/18/2025 12:30 PM EDT - 03/18/2025 1:20 PM EDT Surgery [facility] Endoscopy [address] [place] [address] Sudheer Hayes MD [address] [place] [address] UPPER ENDOSCOPY; DIAGNOSTIC WITH BRUSH/WASH (SP) WITH POSSIBLE MODERATE SEDATION [74302 (CPT??)] Scheduled Procedures Name Priority Associated Diagnoses Date/Ti me UPPER ENDOSCOPY; DIAGNOSTIC WITH BRUSH/WASH (SP) WITH POSSIBLE MODERATE SEDATION History of Greenfield's esophagus 03/18/2025 12:30 PM EDT documented as of this encounter Visit Diagnoses Not on filedocumented in this encounter Care Teams Dial Maker Relationship Specialty Start Date End Date Chan Wilson [address] [place] [address] PCP - General Internal Medicine 01/09/20 documented as of this encounter
--- OUTSIDE RECORDS SUMMARY | 2024-12-24 14:16 | XMS_ITS | Encounter Summary ---
Author Organization [facility] Address [address] [place] [address] Care Team Providers Care Tax Assistant Name Role Phone [place] Jiménezren Jane Primary Care Provider [phone] Encounter Details Date Type Department Care Team (Late st Contact Info) Description 11/10/2021 [employer] Message [facility] Endoscopy [address] [place] [address] [employer], Generic Provider [address] [place] [address] instructions Social History Tobacco Use Types Packs/Day Years [...] Description 03/04/2025 1:00 PM EDT Pre-Admission Testing [facility] Pre Surgical Center [address] [facility] [address] [place] [address] 03/18/2025 12:30 PM EDT Hospital Encounter [facility] Endoscopy [address] [place] [address] Sudheer Hayes MD [address] [place] [address] 03/18/2025 12:30 PM EDT - 03/18/2025 1:20 PM EDT Surgery [facility] Endoscopy [address] [place] [address] Sudheer Hayes MD [address] [place] [address] UPPER ENDOSCOPY; DIAGNOSTIC WITH BRUSH/WASH (SP) WITH POSSIBLE MODERATE SEDATION [76846 (CPT??)] Scheduled Procedures Name Priority Associated Diagnoses Date/Ti me UPPER ENDOSCOPY; DIAGNOSTIC WITH BRUSH/WASH (SP) WITH POSSIBLE MODERATE SEDATION History of Greenfield's esophagus 03/18/2025 12:30 PM EDT documented as of this encounter Visit Diagnoses Not on filedocumented in this encounter Care Teams Tax Assistant Relationship Specialty Start Date End Date Chan Wilson [address] [place] [address] PCP - General Internal Medicine 01/09/20 documented as of this encounter
--- OUTSIDE RECORDS SUMMARY | 2024-12-24 14:16 | XMS_ITS | Encounter Summary ---
Author Organization [facility] Address [address] [place] [address] Care Team Providers Care Sewing Machine Repairer Name Role Phone [place] Primary Care Provider [phone] Encounter Details Date Type Department Care Team (Late st Contact Info) Description 09/16/2023 [employer] Message [facility] Revenue Cycle Management [address] [place] [address] [employer], Generic Provider [address] [phone] pay plan Social History Tobacco Use Types Packs/Day Years Used Date Smoking Tobacco: Never Smokeless Tobacco: Never Alcohol Use Standard Drinks/Week Comments Yes 0 (1 standard drink = 0.6 oz pur e alcohol) SOCIALLY 2/wk Comments No Sex and Gender Information Value Date Recorded Sex Assigned at Female 12/02/2020 12:19 AM EST Legal Sex Female 8:28 AM EST Gender Identity Female 12/02/2020 12:19 AM EST Sexual Orientation Straight 07/30/2020 9: 05 AM EDT documented as of this encounter Plan of Treatment Upcoming Encounters Date Type Department Care Team (Latest Contact Info) Description 03/04/2025 1:00 PM EDT Pre-Admission Testing [facility] Pre Surgical Center [address] [facility] [address] [place] [address] 03/18/2025 12:30 PM EDT Hospital Encounter [facility] Endoscopy [address] [place] [address] Sudheer Hayes MD [address] [place] [address] 03/18/2025 12:30 PM EDT - 03/18/2025 1:20 PM EDT Surgery [facility] Endoscopy [address] [place] [address] Sudheer Hayes MD [address] [place] [address] UPPER ENDOSCOPY; DIAGNOSTIC WITH BRUSH/WASH (SP) WITH POSSIBLE MODERATE SEDATION [71277 (CPT??)] Scheduled Procedures Name Priority Associated Diagnoses Date/Ti me UPPER ENDOSCOPY; DIAGNOSTIC WITH BRUSH/WASH (SP) WITH POSSIBLE MODERATE SEDATION History of Greenfield's esophagus 03/18/2025 12:30 PM EDT documented as of this encounter Visit Diagnoses Not on filedocumented in this encounter Care Teams Sewing Machine Repairer Relationship Specialty Start Date End Date Chan Wilson [address] [place] [address] PCP - General Internal Medicine 01/09/20 documented as of this encounter
--- OUTSIDE RECORDS SUMMARY | 2024-12-24 14:16 | XMS_ITS | Encounter Summary ---
Author Organization [facility] Address [address] [place] [address] Care Team Providers Care Hot Kettle Tender Name Role Phone Chan Wilson Primary Care Provider [phone] Encounter Details Date Type Department Care Team (Late st Contact Info) Description 06/26/2021 Orders Only [facility] Interventional Radiology [address] [place] [address] Jovana Sullivan MD [address] [place] [address] Social History Tobacco Use Types Packs/Day Years [...] Description 03/04/2025 1:00 PM EDT Pre-Admission Testing [facility] Pre Surgical Center [address] [place] [address] 03/18/2025 12:30 PM EDT Hospital Encounter [facility] Endoscopy [address] [place] [address] Sudheer Hayes MD [address] [place] [address] 03/18/2025 12:30 PM EDT - 03/18/2025 1:20 PM EDT Surgery [facility] Endoscopy [address] [place] [address] Sudheer Hayes MD [address] [place] [address] UPPER ENDOSCOPY; DIAGNOSTIC WITH BRUSH/WASH (SP) WITH POSSIBLE MODERATE SEDATION [84341 (CPT??)] Scheduled Procedures Name Priority Associated Diagnoses Date/Ti me UPPER ENDOSCOPY; DIAGNOSTIC WITH BRUSH/WASH (SP) WITH POSSIBLE MODERATE SEDATION History of Greenfield's esophagus 03/18/2025 12:30 PM EDT documented as of this encounter Visit Diagnoses Not on filedocumented in this encounter Care Teams Hot Kettle Tender Relationship Specialty Start Date End Date Chan Wilson [address] [place] [address] PCP - General Internal Medicine 01/09/20 documented as of this encounter
--- OUTSIDE RECORDS SUMMARY | 2024-12-24 14:16 | XMS_ITS | Encounter Summary ---
Author Organization [facility] Address [address] [place] [address] Care Team Providers Care Client Services Specialist Name Role Phone [place] Rapids[place] Jane Primary Care Provider [phone] Encounter Details Date Type Department Care Team (Late st Contact Info) Description 09/20/2024 [employer] Message [facility] Revenue Cycle Management [address] [place] [address] [email or web address], Generic Provider [address] [place], [place] [phone] payment plan Social History Tobacco Use Types Packs/Day Years Used Date Smoking Tobacco: Never Smokeless Tobacco: Never Alcohol Use Standard Drinks/Week Comments Yes 0 (1 standard drink = 0.6 oz pur e alcohol) SOCIALLY 1/wk Comments No Sex and Gender Information Value Date Recorded Sex Assigned at Female 12/02/2020 12:19 AM EST Legal Sex Female 8:28 AM EST Gender Identity Female 12/02/2020 12:19 AM EST Sexual Orientation Straight 07/30/2020 9: 05 AM EDT documented as of this encounter Plan of Treatment Upcoming Encounters Date Type Department Care Team (Latest Contact Info) Description 03/04/2025 1:00 PM EDT Pre-Admission Testing [facility] Pre Surgical Center [address] [facility] [address] [place] [address] 03/18/2025 12:30 PM EDT Hospital Encounter [facility] Endoscopy [address] [place] [address] Sudheer Hayes MD [address] [place] [address] 03/18/2025 12:30 PM EDT - 03/18/2025 1:20 PM EDT Surgery [facility] Endoscopy [address] [place] [address] Sudheer Hayes MD [address] [place] [address] UPPER ENDOSCOPY; DIAGNOSTIC WITH BRUSH/WASH (SP) WITH POSSIBLE MODERATE SEDATION [24071 (CPT??)] Scheduled Procedures Name Priority Associated Diagnoses Date/Ti me UPPER ENDOSCOPY; DIAGNOSTIC WITH BRUSH/WASH (SP) WITH POSSIBLE MODERATE SEDATION History of Greenfield's esophagus 03/18/2025 12:30 PM EDT documented as of this encounter Visit Diagnoses Not on filedocumented in this encounter Care Teams Client Services Specialist Relationship Specialty Start Date End Date Chan Wilson [address] [place] [address] PCP - General Internal Medicine 01/09/20 documented as of this encounter
--- OUTSIDE RECORDS SUMMARY | 2024-12-24 14:16 | XMS_ITS | Encounter Summary ---
Author Organization [facility] Address [address] [place] [address] Care Team Providers Care Despatching And Receiving Clerk Name Role Phone Chidester, Chan Jane Primary Care Provider [phone] Encounter Details Date Type Department Care Team (Late st Contact Info) Description 11/10/2021 [employer] Message [facility] Endoscopy [address] [place] [address] [employer], Generic Provider [address] [place], [place] [phone] appointment information Social History Tobacco Use Types Packs/Day Years [...] Description 03/04/2025 1:00 PM EDT Pre-Admission Testing [facility] Pre Surgical Center [address] [facility] [address] [place] [address] 03/18/2025 12:30 PM EDT Hospital Encounter [facility] Endoscopy [address] [place] [address] Sudheer Hayes MD [address] [place] [address] 03/18/2025 12:30 PM EDT - 03/18/2025 1:20 PM EDT Surgery [facility] Endoscopy [address] [place] [address] Sudheer Hayes MD [address] [place] [address] UPPER ENDOSCOPY; DIAGNOSTIC WITH BRUSH/WASH (SP) WITH POSSIBLE MODERATE SEDATION [40947 (CPT??)] Scheduled Procedures Name Priority Associated Diagnoses Date/Ti me UPPER ENDOSCOPY; DIAGNOSTIC WITH BRUSH/WASH (SP) WITH POSSIBLE MODERATE SEDATION History of Greenfield's esophagus 03/18/2025 12:30 PM EDT documented as of this encounter Visit Diagnoses Not on filedocumented in this encounter Care Teams Despatching And Receiving Clerk Relationship Specialty Start Date End Date Chan Wilson [address] [place] [address] PCP - General Internal Medicine 01/09/20 documented as of this encounter
--- OUTSIDE RECORDS SUMMARY | 2024-12-24 14:16 | XMS_ITS | Encounter Summary ---
Author Organization [facility] Address [address] [place] [address] Care Team Providers Care Middle School Principal Name Role Phone [place] City[place] shah Primary Care Provider [phone] Encounter Details Date Type Department Care Team (Late st Contact Info) Description 11/02/2022 [employer] Message [facility] Revenue Cycle Management [address] [place] [address] [employer], Generic Provider [address] [phone] Payment Plan Social History Tobacco Use Types Packs/Day Years [...] Description 03/04/2025 1:00 PM EDT Pre-Admission Testing [facility] Pre Surgical Center [address] [facility] [address] [place] [address] 03/18/2025 12:30 PM EDT Hospital Encounter [facility] Endoscopy [address] [place] [address] Sudheer Hayes MD [address] [place] [address] 03/18/2025 12:30 PM EDT - 03/18/2025 1:20 PM EDT Surgery [facility] Endoscopy [address] [place] [address] Sudheer Hayes MD [address] [place] [address] UPPER ENDOSCOPY; DIAGNOSTIC WITH BRUSH/WASH (SP) WITH POSSIBLE MODERATE SEDATION [95982 (CPT??)] Scheduled Procedures Name Priority Associated Diagnoses Date/Ti me UPPER ENDOSCOPY; DIAGNOSTIC WITH BRUSH/WASH (SP) WITH POSSIBLE MODERATE SEDATION History of Greenfield's esophagus 03/18/2025 12:30 PM EDT documented as of this encounter Visit Diagnoses Not on filedocumented in this encounter Care Teams Middle School Principal Relationship Specialty Start Date End Date Chan Wilson [address] [place] [address] PCP - General Internal Medicine 01/09/20 documented as of this encounter
--- OUTSIDE RECORDS SUMMARY | 2024-12-24 14:16 | XMS_ITS | Encounter Summary ---
Author Organization [facility] Address [address] [place] [address] Care Team Providers Care Air And Missile Defense Crewmember Name Role Phone [place]villeChan shah Primary Care Provider [phone] Encounter Details Date Type Department Care Team (Late st Contact Info) Description 12/13/2024 Results Follow-Up [facility] [address] [place] [address] Meterman: Sudheer Linda MD [address] [place] [address] Social History Tobacco Use Types Packs/Day Years [...] AM EDT documented as of this encounter Miscellaneous Notes * Telephone Encounter - Sudheer Hayes MD - 12/13/2024 3:37 PM EST Discussed results. Recommended her to see Dr. Fields for further discussion of possible esophagectomy documented in this encounter Plan of Treatment Upcoming Encounters Date Type Department Care Team (Latest Contact Info) Description 03/04/2025 1:00 PM EDT Pre-Admission Testing [facility] [address] [place] [address] [address] [place] [address] 03/18/2025 12:30 PM EDT Hospital Encounter [facility] [address] [place] [address] Sudheer Hayes MD [address] [place] [address] 03/18/2025 12:30 PM EDT - 03/18/2025 1:20 PM EDT Surgery [facility] [address] [place] [address] Sudheer Hayes MD [address] [place] [address] UPPER ENDOSCOPY; DIAGNOSTIC WITH BRUSH/WASH (SP) WITH POSSIBLE MODERATE SEDATION [49695 (CPT??)] Scheduled Procedures Name Priority Associated Diagnoses Date/Ti me UPPER ENDOSCOPY; DIAGNOSTIC WITH BRUSH/WASH (SP) WITH POSSIBLE MODERATE SEDATION History of Greenfield's esophagus 03/18/2025 12:30 PM EDT documented as of this encounter Visit Diagnoses Not on filedocumented in this encounter Care Teams Air And Missile [employer] Crewmember Relationship Specialty Start Date End Date Chan Wilson [address] [place] [phone] PCP - General Internal Medicine 01/09/20 documented as of this encounter
--- OUTSIDE RECORDS SUMMARY | 2024-12-24 14:16 | XMS_ITS | Encounter Summary ---
Author Organization [facility] Address [address] [place] [address] Care Team Providers Care Extrusion Die Template Maker Name Role Phone EscalanteChan shah Primary Care Provider [phone] Encounter Details Date Type Department Care Team (Late st Contact Info) Description 09/08/2024 myChart Message Initial Department [address] [place] [address] Mychart, Generic Provider [address] [place], [place] [id number] Questionnaire Submission Social History Tobacco Use Types Packs/Day Years [...] Description 03/04/2025 1:00 PM EDT Pre-Admission Testing [facility] [address] [facility] 3rd [place] [address] 03/18/2025 12:30 PM EDT Hospital Encounter [facility] Endoscopy [address] [place] [address] Sudheer Hayes MD [address] [place] [address] 03/18/2025 12:30 PM EDT - 03/18/2025 1:20 PM EDT Surgery [facility] Endoscopy [address] [place] [address] Sudheer Hayes MD [address] [place] [address] UPPER ENDOSCOPY; DIAGNOSTIC WITH BRUSH/WASH (SP) WITH POSSIBLE MODERATE SEDATION [25132 (CPT??)] Scheduled Procedures Name Priority Associated Diagnoses Date/Ti me UPPER ENDOSCOPY; DIAGNOSTIC WITH BRUSH/WASH (SP) WITH POSSIBLE MODERATE SEDATION History of Greenfield's esophagus 03/18/2025 12:30 PM EDT documented as of this encounter Visit Diagnoses Not on filedocumented in this encounter Care Teams Extrusion Die Template Maker Relationship Specialty Start Date End Date Chan Wilson [address] [place] [address] PCP - General Internal Medicine 01/09/20 documented as of this encounter
--- OUTSIDE RECORDS SUMMARY | 2024-12-24 14:16 | XMS_ITS | Encounter Summary ---
Author Organization [facility] Address [address] [place] [address] Care Team Providers Care Acid Operator Name Role Phone [place] AdditionChan Jane Primary Care Provider [phone] Encounter Details Date Type Department Care Team (Late st Contact Info) Description 08/24/2023 JustFab Message [facility] Revenue Cycle Management [address] [place] [address] [facility], Generic Provider [address] [id number] pay plan Social History Tobacco Use Types [...] Description 03/04/2025 1:00 PM EDT Pre-Admission Testing [facility] [address] [facility] [address] [place] [address] 03/18/2025 12:30 PM EDT Hospital Encounter [facility] Endoscopy [address] [place] [address] Sudheer Hayes MD [address] [place] [address] 03/18/2025 12:30 PM EDT - 03/18/2025 1:20 PM EDT Surgery [facility] Endoscopy [address] [place] [address] Sudheer Hayes MD [address] [place] [phone] UPPER ENDOSCOPY; DIAGNOSTIC WITH BRUSH/WASH (SP) WITH POSSIBLE MODERATE SEDATION [06449 (CPT??)] Scheduled Procedures Name Priority Associated Diagnoses Date/Ti me UPPER ENDOSCOPY; DIAGNOSTIC WITH BRUSH/WASH (SP) WITH POSSIBLE MODERATE SEDATION History of Greenfield's esophagus 03/18/2025 12:30 PM EDT documented as of this encounter Visit Diagnoses Not on filedocumented in this encounter Care Teams Acid Operator Relationship Specialty Start Date End Date Chan Wilson [address] [place] [address] PCP - General Internal Medicine 01/09/20 documented as of this encounter
--- OUTSIDE RECORDS SUMMARY | 2024-12-24 14:16 | XMS_ITS | Encounter Summary ---
Author Organization [facility] Address [address] [place] [address] Care Team Providers Care Research Associate Quality Control Qc Name Role Phone Chan Wilson Jane Primary Care Provider [phone] Reason for Visit * Auth/Cert (Routine) Specialty Diagnoses / Procedures Referred By Leny middleton Referred To Contact Diagnoses History of Mancera's esophagus History of Mancera's esophagus [Z87.19] Procedures NE EGD ABLATE TUMOR POLYP/LESION W/DILATION& WIRE UPPER ENDOSCOPY WITH POSSIBLE DILATION AND ABLATION OF TUMOR(S) AND POSSIBLE MODERATE SEDATION Referral ID Status Reason Start Date Expiration Date Visits Re quested Visits Authorized [id number] 99 [phone] Encounter Details Date Type Department Care Team (Late st Contact Info) Description 12/03/2024 3:14 PM EST Anesthesia Event [facility] [address] [place] [address] Dany Westbrook MD [address] [place] [address] Anesthesia Record Procedure Summary Procedure Name Responsible Anesthesiologist Anesthesia Start Time Anesthesia Stop Time UPPER ENDOSCOPY WITH POSSIBLE DILATION AND ABLATION OF TUMOR(S) AND POSSIBLE MODERATE SEDATION Dany Westbrook MD 12/03/24 1514 12/03/24 1554 Events Date Time Event Comment 12/03/2024 1426 1514 An Start 1516 An Start Data 1521 In Room 1522 An Induction The patient was reevaluated immediately before induction of anesthesia. 1525 Anesthesia Ready 1525 Proc Start 1543 Proc Fin 1545 Out of Room 1551 an stop data 1554 Handoff to RN I completed my handoff to the receiving nurse during which we: 1. Identified the patient 2. Identified the responsible provider 3. Reviewed the pertinent medical history 4. Discussed the surgical course 5. Reviewed intra-op anesthesia management and issues during anesthesia 6. Set expectations for post-procedure period 7. Allowed opportunity for questions and acknowledgement of understanding. 1554 An Stop Meds Name Total propofol (DIPRIVAN) 20ML vial 400.14 mg lidocaine PF (XYLOCAINE) injection 2% (2 0 mg/mL) 100 mg sodium chloride 0.9% (NS) infusion 400 m L * Agents Name ETO2 (%) Actual Inspired FiO2 (O2%) Set FiO2 (O2%) * Blood No blood administrations on file. Lines, Drains, and Airways Type Details Placement Removal Peripheral IV Placement Date: 12/03/24; Placement Time: 1440; Catheter Size: 22 G; Orientation: Left, Posterior; Location: Hand; Site Prep: Chlorhexidine; Local Anes: None; Inserted by: emir; Insertion Attempts: 2; Patient Tolerance: Tolerated well; Removal Date: 12/03/24; Removal Time: 1622 12/03/24 1440 by Emir Raya RN 12/03/24 1622 by Heidi Benitez RN documented in this encounter Social History Tobacco Use Types Packs/Day Years [...] AM EDT documented as of this encounter Last Filed Vital Signs Vital Sign Reading Time Taken Comments Blood Pressure 97/56 12/03/2024 3:48 PM EST Pulse 71 12/03/2024 3:51 PM EST Temperature 36 ??C (96.8 ??F) 12/03/2024 3:45 PM EST Respiratory Rate 0 12/03/2024 3:51 PM EST Oxygen Saturation 97% 12/03/2024 3:51 PM EST Inhaled Oxygen Concentration - - Weight - - Height - - Body Mass Index - - documented in this encounter OR Notes * Anesthesia Postprocedure Evaluation - Dany Westbrook MD - 12/03/2024 3:56 PM EST Anesthesia Post-procedure Evaluation Patient: Raymond Boucher : 1970 Date of Procedure: 12/03/2024 Procedure Summary Date: 12/03/24 Room / Location: [facility] / [facility] Anesthesia Start: 1514 Anesthesia Stop: 1554 Procedure: UPPER ENDOSCOPY WITH POSSIBLE DILATION AND ABLATION OF TUMOR(S) AND POSSIBLE MODERATE SEDATION Diagnosis: History of Mancera's esophagus (History of Mancera's esophagus [Z87.19]) Surgeons: Sudheer Hayes MD Responsible Provider: Dany Westbrook MD Anesthesia Type: MAC ASA Status: 3 Anesthesia Type: MAC Last vitals Vitals Value Taken Time BP 90/48 12/03/24 1552 Temp 36.3 ??C (97.3 ??F) 12/03/24 1552 Pulse 77 12/03/24 1552 Resp 17 12/03/24 1552 SpO2 95 % 12/03/24 1552 Anesthesia Post Evaluation Patient location during evaluation: Phase II Patient participation: complete - patient participated Level of consciousness: awake and alert Pain management: adequate Anesthetic complications: no Nausea and Vomiting: no Cardiovascular status: acceptable Respiratory status: acceptable Hydration status: acceptable No notable events documented. Dany Westbrook MD Date: 12/03/2024 Time: 3:56 PM * Anesthesia Preprocedure Evaluation - Dany Westbrook MD - 11/20/2024 3:14 PM EST Images from the original note were not included. Anesthesia Pre-procedure Evaluation Patient: Raymond Boucher : 1970 Date of Procedure: 12/03/2024 Preoperative Diagnosis: Pre-op Diagnosis * History of Mancera's esophagus [Z87.19] UPPER ENDOSCOPY WITH POSSIBLE DILATION AND ABLATION OF TUMOR(S) AND POSSIBLE MODERATE SEDATION: 40849 (CPT??) Surgeon(s): Sudheer Hayes MD Past Medical / Past Surgical: Past Medical History: Diagnosis Date Anxiety Arthritis Asthma Mancera's esophagus with high grade dysplasia Bladder incontinence 03/24/2021 Colon polyp tubular adenoma COVID-19 10/19/2023 received paxlovid; fully recovered but sense of smell and taste have not returned Depression Dermatitis dry skin Diverticulosis recent flare treated 10/01/2023 GERD (gastroesophageal reflux disease) pt still has heartburn symptoms 3-4x a week even with taking pantoprazole H. pylori infection s/p treatment Hiatal hernia Irritable bowel syndrome Leiomyoma 05/07/2024 SHANNON (obstructive sleep apnea) borderline after bariatric surgery, no longer uses CPAP PONV (postoperative nausea and vomiting) Severe obesity (HCC) 11/11/2023 Past Surgical History: Procedure Laterality Date BARIATRIC SURGERY lap band, 2006, redo 2015, THEN REMOVAL 2019 BREAST REDUCTION 2006 SECTION, CLASSIC x1 COLONOSCOPY ESOPHAGOGASTRODUODENOSCOPY x3 LIPECTOMY panniculectomy NE COLSC FLX W/RMVL OF TUMOR POLYP LESION SNARE TQ N/A 12/01/2022 Procedure: COLONOSCOPY, FLEXIBLE; WITH REMOVAL OF TUMOR(S), POLYP(S), OR OTHER LESION(S) BY SNARE TECHNIQUE AND POSSIBLE MODERATE SEDATION; Surgeon: Sudheer Hayes MD; Location: [address] [place] [address]; Service: Gastroenterology NE EDG US EXAM SURGICAL ALTER STOM DUODENUM/JEJUNUM N/A 05/07/2020 Procedure: UPPER ENDOSCOPY WITH ENDOSCOPIC ULTRASOUND WITH POSSIBLE MODERATE SEDATION; Surgeon: Sudheer Hayes MD; Location: [facility]; Service: Gastroenterology NE EDG US EXAM SURGICAL ALTER STOM DUODENUM/JEJUNUM N/A 08/07/2020 Procedure: UPPER ENDOSCOPY WITH ENDOSCOPIC ULTRASOUND WITH POSSIBLE MODERATE SEDATION; Surgeon: Sudheer Hayes MD; Location: [facility]; Service: Gastroenterology NE EGD ABLATE TUMOR POLYP/LESION W/DILATION& WIRE N/A 11/07/2020 Procedure: UPPER ENDOSCOPY WITH POSSIBLE DILATION AND ABLATION OF TUMOR(S) AND POSSIBLE MODERATE SEDATION; Surgeon: Sudheer Hayes MD; Location: [facility]; Service: Gastroenterology NE EGD ABLATE TUMOR POLYP/LESION W/DILATION& WIRE N/A 12/02/2020 Procedure: UPPER ENDOSCOPY WITH POSSIBLE DILATION AND ABLATION OF TUMOR(S) AND POSSIBLE MODERATE SEDATION; Surgeon: Sudheer Hayes MD; Location: [facility]; Service: Gastroenterology NE EGD ABLATE TUMOR POLYP/LESION W/DILATION& WIRE N/A 02/03/2021 Procedure: UPPER ENDOSCOPY WITH POSSIBLE DILATION AND ABLATION OF TUMOR(S) AND POSSIBLE MODERATE SEDATION; Surgeon: Sudheer Hayes MD; Location: [facility]; Service: Gastroenterology NE EGD ABLATE TUMOR POLYP/LESION W/DILATION& WIRE N/A 05/19/2021 Procedure: UPPER ENDOSCOPY WITH POSSIBLE DILATION AND ABLATION OF TUMOR(S) AND POSSIBLE MODERATE SEDATION; Surgeon: Sudheer Hayes MD; Location: [facility]; Service: Gastroenterology NE EGD ABLATE TUMOR POLYP/LESION W/DILATION& WIRE Left 08/17/2021 Procedure: UPPER ENDOSCOPY WITH POSSIBLE DILATION AND ABLATION OF TUMOR(S) AND POSSIBLE MODERATE SEDATION; Surgeon: Sudheer Hayes MD; Location: [facility]; Service: Gastroenterology NE EGD ABLATE TUMOR POLYP/LESION W/DILATION& WIRE N/A 05/21/2024 Procedure: UPPER ENDOSCOPY WITH POSSIBLE DILATION AND ABLATION OF TUMOR(S) AND POSSIBLE MODERATE SEDATION; Surgeon: Sudheer Hayes MD; Location: [facility]; Service: Gastroenterology NE EGD DILATION GASTRIC/DUODENAL STRICTURE N/A 09/18/2024 Procedure: UPPER ENDOSCOPY WITH DILATION OF GASTRIC DUODENAL STRICTURE(S) WITH POSSIBLE MODERATE SEDATION; Surgeon: Sudheer Hayes MD; Location: [facility]; Service: Gastroenterology NE EGD DILATION GASTRIC/DUODENAL STRICTURE N/A 10/09/2024 Procedure: UPPER ENDOSCOPY WITH DILATION OF GASTRIC DUODENAL STRICTURE(S) WITH POSSIBLE MODERATE SEDATION; Surgeon: Sudheer Hayes MD; Location: [facility]; Service: Gastroenterology NE EGD TRANSORAL BIOPSY SINGLE/MULTIPLE N/A 11/18/2021 Procedure: UPPER ENDOSCOPY WITH POSSIBLE BIOPSY AND/OR POLYPECTOMY AND POSSIBLE MODERATE SEDATION; Surgeon: Sudheer Hayes MD; Location: [address] [place] [address] Endo; Service: Gastroenterology NE EGD TRANSORAL BIOPSY SINGLE/MULTIPLE N/A 12/01/2022 Procedure: UPPER ENDOSCOPY WITH POSSIBLE BIOPSY AND/OR POLYPECTOMY AND POSSIBLE MODERATE SEDATION; Surgeon: Sudheer Hayes MD; Location: [address] [place] [address]; Service: Gastroenterology NE EGD TRANSORAL BIOPSY SINGLE/MULTIPLE N/A 05/11/2023 Procedure: UPPER ENDOSCOPY WITH POSSIBLE BIOPSY AND/OR POLYPECTOMY AND POSSIBLE MODERATE SEDATION; Surgeon: Sudheer Hayes MD; Location: [address] [place] [address]; Service: Gastroenterology NE ESOPHAGOGASTRODUODENOSCOPY TRANSORAL DIAGNOSTIC N/A 11/22/2023 Procedure: UPPER ENDOSCOPY; DIAGNOSTIC WITH BRUSH/WASH (SP) WITH POSSIBLE MODERATE SEDATION; Surgeon: Sudheer Hayes MD; Location: [facility]; Service: Gastroenterology NE ESOPHAGOGASTRODUODENOSCOPY TRANSORAL DIAGNOSTIC N/A 02/13/2024 Procedure: UPPER ENDOSCOPY; DIAGNOSTIC WITH BRUSH/WASH (SP) WITH POSSIBLE MODERATE SEDATION; Surgeon: Sudheer Hayes MD; Location: [facility]; Service: Gastroenterology NE ESOPHAGOGASTRODUODENOSCOPY TRANSORAL DIAGNOSTIC N/A 08/20/2024 Procedure: UPPER ENDOSCOPY; DIAGNOSTIC WITH BRUSH/WASH (SP) WITH POSSIBLE MODERATE SEDATION; Surgeon: Sudheer Hayes MD; Location: [facility]; Service: Gastroenterology ROOT CANAL ROTATOR CUFF REPAIR 2018 TUBAL LIGATION tubal procedure for sterilization WISDOM TOOTH EXTRACTION Social / Family Histories: Vaping Questions Responses Vaping Use Never User Social History Tobacco Use Smoking status: Never Smokeless tobacco: Never Substance Use Topics Alcohol use: Yes Comment: SOCIALLY 1/wk Social History Substance and Sexual Activity Drug Use Yes Types: Marijuana Comment: edibles, maybe twice a month Family History Problem Relation Age of Onset Hypertension Mother Hyperlipidemia Mother Diabetes Mother Lung disease Mother Chiari malformation Mother Diabetes Father Prostate cancer Father 65 No Known Problems Sister No Known Problems Brother Chiari malformation Brother Breast cancer Maternal Grandmother 65 Colon cancer Paternal Grandmother 80 OB History 1 Para Term AB Living SAB IAB Ectopic Multiple Live Births Prior to Admission medications Medication Sig Start Date End Date Taking? Authorizing Provider acetaminophen (Tylenol Arthritis Pain) 650 mg 8 hr tablet Take 650 mg by mouth every 8 hours as needed for pain. Unknown Provider, azelastine (ASTELIN) 137 mcg (0.1 %) nasal spray SMARTSI Cades(s) Both Nares Twice Daily 01/17/24Unknown Provider, diphenhydrAMINE (BENADRYL) 25 mg capsule Take 25 mg by mouth nightly as needed (Allergy symptoms). Unknown Provider, fluticasone propionate (FLONASE) 50 mcg/actuation nasal spray SMARTSI Cades(s) Both Nares Daily 01/17/24 Unknown Provider, LORazepam (ATIVAN) 1 mg tablet Take 1 mg by mouth daily as needed for anxiety. 12/29/19 Unknown Provider, multivit-min/ferrous fumarate (MULTI VITAMIN ORAL) 0 Refills, Maintenance, 02/24/24 16:20:00 EDT, Partial fill upon patient request if the prescription is for a schedule II opioid drug. 02/24/24 Unknown Provider, pantoprazole DR (PROTONIX) 40 mg tablet Take 1 tablet (40 mg total) by mouth once a day. 05/21/24 05/16/25 Sudheer Hayes MD sucralfate (CARAFATE) 1 gram tablet Take 1 tablet (1 g total) by mouth 4 times a day. 09/18/24 10/18/24 Finn Michael MD Allergies: Oxycodone-acetaminophen Vitals / Weight: Last menstrual period 04/15/2021, not currently . Recent Labs: No data to display Latest Ref Rng & Units 06/26/2021 9:38 AM Basic Metabolic Panel Creatinine 0.50 - 1.20 mg/dL 0.78 EGFR >=90 mL/min/BSA 88 Recent EKG: Patient's Hospital Problems: Patient Active Problem List Diagnosis Mancera's esophagus with high grade dysplasia Severe obesity (HCC) Anxiety Bladder incontinence Chronic SI joint pain Depression Diverticulitis Leiomyoma Papanicolaou smear of vagina with low grade squamous intraepithelial lesion (LGSIL) Mancera's esophagus Abnormal findings on diagnostic imaging of breast Postmenopausal bleeding Anesthesia Evaluation Patient summary reviewed, nursing notes reviewed and all labs reviewed. Anesthesia History: History of anesthetic complications PONV Pulmonary (+) asthma, sleep apnea on No CPAP and confirmed not an ex-cigarette smoker , marijuana use (occasional use gummy) (-) COPD, shortness of breath, smoker Cardiovascular Exercise tolerance: >4 METS (-) hypertension, hyperlipidemia, dysrhythmias ROS comment: EKG 08/09/2023- Impression NORMAL SINUS RHYTHM CANNOT RULE OUT ANTERIOR INFARCT , AGE UNDETERMINED ABNORMAL ECG NO PREVIOUS ECGS AVAILABLE Neuro/Psych (+) psychiatric history, depression, anxiety (-) seizures, CVA Comments: Rotator cuff repair 2018 GI/Hepatic/Renal (+) hiatal hernia, GERD (pt still has heartburn symptoms 3-4x a week even with taking pantoprazole)poorly controlled, no chronic renal disease, esophageal disease, mancera's esophagus, dysphagia andesophageal stricture (-) liver disease, renal disease Comments: Gastroparesis, dysphagia Esophageal stenosis frequent endoscopies with dilation BARIATRIC SURGERY-lap band, 2006, redo 2015, THEN REMOVAL 2019 Endo/Other (+) , obesity (-) diabetes mellitus, hypothyroidism Infectious Disease (-) COVID and influenza History of Present Illness: 53 y.o. female with a pertinent medical history including ponv, sleep apnea (no cpap), anxiety, depression, IBS, GERD, and Mancera's esophagus with high grade dysplasia iscontacted for PSE prior to upcoming procedure. Patient undergoes frequent endoscopies, most recently on 10/09/24 with dilation. Plan was to Repeatupper endoscopy in 2-4 weeks to check healing/evaluation of stenosis.. Plan is to proceed with UPPER ENDOSCOPY WITH POSSIBLE DILATION AND ABLATION OF TUMOR(S) AND POSSIBLE MODERATE SEDATION as noted above. At this time, other than the above, there are no other complaints or concerns. Physical Exam Airway Mallampati: II TM distance: >3 FB Neck ROM: full Mouth Opening: good Cardiovascular - normal exam Rhythm: regular Dental Pulmonary - normal exam Breath sounds clear to auscultation Abdominal (+) obesity Anesthesia Plan ASA 3 Anesthesia Type: MAC NPO status verified Pre-Anesthesia Review by Attending Anesthesiologist: Dany Westbrook MD Date: 12/03/2024 Time: 2:24 PM I have interviewed and examined the patient and conducted a pre-anesthesia evaluation that includedreview of the complete medical history, notation of a relevant patient problem list and review of all pertinent preoperative studies, laboratory testing and specialty consultations. An assessment of anesthetic risk including ASA classification and an anesthetic plan have been documented. Original Author: Cody Ferreira MD documented in this encounter Plan of Treatment Upcoming Encounters Date Type Department Care Team (Latest Contact Info) Description 03/04/2025 1:00 PM EDT Pre-Admission Testing [facility] [address] [place] [address] 3rd [place] [address] 03/18/2025 12:30 PM EDT Hospital Encounter [facility] Endoscopy [address] [place] [address] Sudheer Hayes MD [address] [place], [place] [id number] 03/18/2025 12:30 PM EDT - 03/18/2025 1:20 PM EDT Surgery [facility] Endoscopy [address] [place] [address] Sudheer Hayes MD [address] [place] [address] UPPER ENDOSCOPY; DIAGNOSTIC WITH BRUSH/WASH (SP) WITH POSSIBLE MODERATE SEDATION [67082 (CPT??)] Scheduled Procedures Name Priority Associated Diagnoses Date/Ti me UPPER ENDOSCOPY; DIAGNOSTIC WITH BRUSH/WASH (SP) WITH POSSIBLE MODERATE SEDATION History of Mancera's esophagus 03/18/2025 12:30 PM EDT documented as of this encounter Visit Diagnoses Not on filedocumented in this encounter Administered Medications Inactive Administered Medications - up to 3 most recent administrations Medication Order MAR Action Action Date Dose Rate Site lidocaine (XYLOCAINE) 2% (20 mg/mL) injection intradermal, As needed, Starting on Tue12/03/24 at 1522, Until Tue12/03/24 at 1555, Anesthesia Intra-op Given 12/03/2024 3:22 PM EST 100 mg propofoL (DIPRIVAN) injection intravenous, Continuous PRN, Starting on Tue12/03/24 at 1522, Until Tue12/03/24 at 1555, Anesthesia Intra-op Given 12/03/2024 3:32 PM EST 40 mg Given 12/03/2024 3:25 PM EST 55 mg Given 12/03/2024 3:23 PM EST 100 mg sodium chloride 0.9% (NS) premix infusion intravenous, Continuous PRN, Starting on Tue12/03/24 at 1443, Until Tue12/03/24 at 1555, Anesthesia Intra-op New Bag/Syringe 12/03/2024 2:43 PM EST documented in this encounter Care Teams Research Associate Quality Control Qc Relationship Specialty Start Date End Date Chan Wilson [address] [place] [id number] PCP - General Internal Medicine 01/09/20 documented as of this encounter
--- OUTSIDE RECORDS SUMMARY | 2024-12-24 14:16 | XMS_ITS | Encounter Summary ---
Author Organization [facility] Address [address] [place] [address] Care Team Providers Care Cold Header Name Role Phone [place] SpringsChan Jane Primary Care Provider [phone] Encounter Details Date Type Department Care Team (Late st Contact Info) Description 09/26/2023 Reflexion Health Message [facility] Revenue Cycle Management [address] [place] [address] AXON [employer], Generic Provider [address] [place], [place] [phone] payment plan Social History Tobacco Use Types [...] Description 03/04/2025 1:00 PM EDT Pre-Admission Testing [facility] Pre Surgical Center [address] [facility] [address] [place] [address] 03/18/2025 12:30 PM EDT Hospital Encounter [facility] Endoscopy [address] [place] [address] Sudheer Hayes MD [address] [place] [address] 03/18/2025 12:30 PM EDT - 03/18/2025 1:20 PM EDT Surgery [facility] Endoscopy [address] [place] [address] Sudheer Hayes MD [address] [place] [id number] UPPER ENDOSCOPY; DIAGNOSTIC WITH BRUSH/WASH (SP) WITH POSSIBLE MODERATE SEDATION [61314 (CPT??)] Scheduled Procedures Name Priority Associated Diagnoses Date/Ti me UPPER ENDOSCOPY; DIAGNOSTIC WITH BRUSH/WASH (SP) WITH POSSIBLE MODERATE SEDATION History of Greenfield's esophagus 03/18/2025 12:30 PM EDT documented as of this encounter Visit Diagnoses Not on filedocumented in this encounter Care Teams Cold Header Relationship Specialty Start Date End Date Chan Wilson [address] [place] [address] PCP - General Internal Medicine 01/09/20 documented as of this encounter
--- OUTSIDE RECORDS SUMMARY | 2024-12-24 14:16 | XMS_ITS | Encounter Summary ---
Author Organization [facility] Address [address] [place] [address] Care Team Providers Care Itinerant Teacher Assistant Name Role Phone HelperChan Jane Primary Care Provider [phone] Encounter Details Date Type Department Care Team (Late st Contact Info) Description 12/19/2024 kontoblick Message [facility] Revenue Cycle Management [address] [place] [address] [employer], Generic Provider [address] [place], [place] [phone] payment plan Social History Tobacco Use Types [...] Description 03/04/2025 1:00 PM EDT Pre-Admission Testing [facility] Pre Surgical Center [address] [facility] [address] [place] [address] 03/18/2025 12:30 PM EDT Hospital Encounter [facility] Endoscopy [address] [place] [address] Sudheer Hayes MD [address] [place] [address] 03/18/2025 12:30 PM EDT - 03/18/2025 1:20 PM EDT Surgery [facility] Endoscopy [address] [place] [address] Sudheer Hayes MD [address] [place] [id number] UPPER ENDOSCOPY; DIAGNOSTIC WITH BRUSH/WASH (SP) WITH POSSIBLE MODERATE SEDATION [88898 (CPT??)] Scheduled Procedures Name Priority Associated Diagnoses Date/Ti me UPPER ENDOSCOPY; DIAGNOSTIC WITH BRUSH/WASH (SP) WITH POSSIBLE MODERATE SEDATION History of Greenfield's esophagus 03/18/2025 12:30 PM EDT documented as of this encounter Visit Diagnoses Not on filedocumented in this encounter Care Teams Itinerant Teacher Assistant Relationship Specialty Start Date End Date Chan Wilson [address] [place] [address] PCP - General Internal Medicine 01/09/20 documented as of this encounter
--- OUTSIDE RECORDS SUMMARY | 2024-12-24 14:16 | XMS_ITS | Encounter Summary ---
Author Organization [facility] Address [address] [place] [address] Care Team Providers Care Shift Mgr Name Role Phone [place] sh[place] Jane Primary Care Provider [phone] Encounter Details Date Type Department Care Team (Late st Contact Info) Description 08/01/2023 PanX Message [facility] Revenue Cycle Management [address] [place] [address] [employer], Generic Provider [address] [phone] payment plan Social History Tobacco Use Types [...] Description 03/04/2025 1:00 PM EDT Pre-Admission Testing [facility] Pre Surgical Center [address] [facility] [address] [place] [address] 03/18/2025 12:30 PM EDT Hospital Encounter [facility] Endoscopy [address] [place] [address] Sudheer Hayes MD [address] [place] [address] 03/18/2025 12:30 PM EDT - 03/18/2025 1:20 PM EDT Surgery [facility] Endoscopy [address] [place] [address] Sudheer Hayes MD [address] [place] [id number] UPPER ENDOSCOPY; DIAGNOSTIC WITH BRUSH/WASH (SP) WITH POSSIBLE MODERATE SEDATION [59849 (CPT??)] Scheduled Procedures Name Priority Associated Diagnoses Date/Ti me UPPER ENDOSCOPY; DIAGNOSTIC WITH BRUSH/WASH (SP) WITH POSSIBLE MODERATE SEDATION History of Greenfield's esophagus 03/18/2025 12:30 PM EDT documented as of this encounter Visit Diagnoses Not on filedocumented in this encounter Care Teams Shift Mgr Relationship Specialty Start Date End Date Chan Wilson [address] [place] [address] PCP - General Internal Medicine 01/09/20 documented as of this encounter
--- OUTSIDE RECORDS SUMMARY | 2024-12-24 14:17 | XMS_ITS | Encounter Summary ---
Author Organization [facility] Address [address] [place] [address] Care Team Providers Care Brush Trimming Machine Setter Name Role Phone Alice AcresChan Jiménez Primary Care Provider [phone] Reason for Visit * Auth/Cert (Routine) Specialty Diagnoses / Procedures Referred By Leny middleton Referred To Contact Diagnoses History of Greenfield's esophagus 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] Procedures GA EGD ABLATE TUMOR POLYP/LESION W/DILATION& WIRE UPPER ENDOSCOPY WITH POSSIBLE DILATION AND ABLATION OF TUMOR(S) AND POSSIBLE MODERATE SEDATION Referral ID Status Reason Start Date Expiration Date Visits Re quested Visits Authorized [id number] [phone] Encounter Details Date Type Department Care Team (Late st Contact Info) Description 12/03/2024 2:30 PM EST - 12/03/2024 3:15 PM EST Surgery [facility] [address] [place], [place] [id number] Sudheer Hayes MD [address] [place], [place] [id number] UPPER ENDOSCOPY WITH POSSIBLE DILATION AND ABLATION OF TUMOR(S) AND POSSIBLE MODERATE SEDATION [61500 (CPT??)] Social History Tobacco Use Types Packs/Day Years [...] Sign Reading Time Taken Comments Blood Pressure 138/84 12/03/2024 2:25 PM EST Pulse 67 12/03/2024 2:25 PM EST Temperature 36.8 ??C (98.2 ??F) 12/03/2024 2:25 PM ES T Respiratory Rate 19 12/03/2024 2:25 PM EST Oxygen Saturation 95% 12/03/2024 2:25 PM EST Inhaled Oxygen Concentration - - Weight - - Height - - Body Mass Index - - documented in this encounter Medications at Time of Discharge acetaminophen (Tylenol Arthritis Pain) 650 mg 8 hr tablet Take 650 mg by mouth every 8 hours as needed for pain. amoxicillin-clav ulanate (AUGMENTIN) 400-57 mg chewable tablet Chew and swallow 800 mg by mouth 2 times a day. azelastine (ASTELIN) 137 mcg (0.1 %) nasal spray SMARTSI [place](s) Both Nares Twice Daily 01/17/2024 diphenhydrAMINE (BENADRYL) 25 mg capsule Take 25 mg by mouth nightly as needed (Allergy symptoms). FLUoxetine (PROzac) 40 mg capsule Take 40 mg by mouth once a day. 09/19/2024 fluticasone propionate (FLONASE) 50 mcg/actuation nasal spray Administer 2 sprays into each nostril once a day. 01/17/2024 LORazepam (ATIVAN) 1 mg tablet Take 1 mg by mouth daily as needed for anxiety. 12/29/2019 multivit-min/jony vernon fumarate (MULTI VITAMIN ORAL) 0 Refills, Maintenance, 02/24/24 16:20:00 EDT, Partial fill upon patient request if the prescription is for a schedule II opioid drug. 02/24/[address] (PROTONIX) 40 mg tablet Take 1 tablet (40 mg total) by mouth once a day. 90 tablet 3 05/21/2024 5 documented as of this encounter H&P Notes * Sudheer Hayes MD - 12/03/2024 1:53 PM EST H&P Update: I have reviewed the history and physical and performed a pertinent physical examination on Raymond Francis. No changes have occurred. Raymond Boucher : 1970 CSN: [id number] Source Note - CHARAN Asencio - 11/20/2024 2:06 PM EST PREOPERATIVE HISTORY AND PHYSICAL Pre-Surgical Telephone History Physical exam to be done day of surgery (please see completed physical exam at the bottom of this note) Procedure Summary Date: 12/03/24 Room / Location: [facility] GI GA 06 / [facility] Endo Anesthesia Start: Anesthesia Stop: Procedure: UPPER ENDOSCOPY WITH POSSIBLE DILATION AND ABLATION OF TUMOR(S) AND POSSIBLE MODERATE SEDATION Diagnosis: History of Greenfield's esophagus (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]) Surgeons: Sudheer Hayes MD Responsible Provider: Anesthesia Type: Not recorded ASA Status: Not recorded Laterality: N/A Anesthesia Type from Case: General The patient was identified using 2 identifiers (name and ). Chief Complaint: I am having an endoscopy with biopsy HISTORY OF PRESENT ILLNESS: Raymond Boucher is a 53 y.o. female with a pertinent medical history including ponv, sleep apnea (no cpap), anxiety, depression, IBS, GERD, and Greenfield's esophagus with high grade dysplasia is contacted for PSE prior to upcoming procedure. Patient [...] there are no other complaints or concerns. PAST MEDICAL HISTORY: Past Medical History: Diagnosis Date Anxiety Arthritis Asthma Greenfield's esophagus with high grade dysplasia Bladder incontinence [...] nausea and vomiting) Severe obesity (HCC) 11/11/2023 PAST SURGICAL HISTORY: Past Surgical History: Procedure Laterality Date BARIATRIC SURGERY lap band, 2006, redo 2015, THEN REMOVAL 2019 BREAST REDUCTION 2007 SECTION, CLASSIC x1 COLONOSCOPY ESOPHAGOGASTRODUODENOSCOPY x3 LIPECTOMY panniculectomy GA COLSC FLX W/RMVL OF TUMOR POLYP LESION SNARE TQ N/A 12/01/2022 Procedure: COLONOSCOPY, FLEXIBLE; WITH REMOVAL OF TUMOR(S), POLYP(S), OR OTHER LESION(S) BY SNARE TECHNIQUE AND POSSIBLE MODERATE SEDATION; Surgeon: Sudheer Hayes MD; Location: [address] [place] [address]; Service: Gastroenterology GA EDG US EXAM SURGICAL ALTER STOM DUODENUM/JEJUNUM N/A 05/07/2020 Procedure: UPPER ENDOSCOPY WITH ENDOSCOPIC ULTRASOUND WITH POSSIBLE MODERATE SEDATION; Surgeon: Sudheer Hayes MD; Location: [facility] GI OR; Service: Gastroenterology GA EDG US EXAM SURGICAL ALTER STOM DUODENUM/JEJUNUM N/A 08/07/2020 Procedure: UPPER ENDOSCOPY WITH ENDOSCOPIC ULTRASOUND WITH POSSIBLE MODERATE SEDATION; Surgeon: Sudheer Hayes MD; Location: [facility] GI OR; Service: Gastroenterology GA EGD ABLATE TUMOR POLYP/LESION W/DILATION& WIRE N/A 11/07/2020 Procedure: UPPER ENDOSCOPY WITH POSSIBLE DILATION AND ABLATION OF TUMOR(S) AND POSSIBLE MODERATE SEDATION; Surgeon: Sudheer Hayes MD; Location: [facility] GI OR; Service: Gastroenterology GA EGD ABLATE TUMOR POLYP/LESION W/DILATION& WIRE N/A 12/02/2020 Procedure: UPPER ENDOSCOPY WITH POSSIBLE DILATION AND ABLATION OF TUMOR(S) AND POSSIBLE MODERATE SEDATION; Surgeon: Sudheer Hayes MD; Location: [facility] GI OR; Service: Gastroenterology GA EGD ABLATE TUMOR POLYP/LESION W/DILATION& WIRE N/A 02/03/2021 Procedure: UPPER ENDOSCOPY WITH POSSIBLE DILATION AND ABLATION OF TUMOR(S) AND POSSIBLE MODERATE SEDATION; Surgeon: Sudheer Hayes MD; [facility]; Service: Gastroenterology GA EGD ABLATE TUMOR POLYP/LESION W/DILATION& WIRE N/A 05/19/2021 Procedure: UPPER ENDOSCOPY WITH POSSIBLE DILATION AND ABLATION OF TUMOR(S) AND POSSIBLE MODERATE SEDATION; Surgeon: Sudheer Hayes MD; Location: [facility] Endo; Service: Gastroenterology GA EGD ABLATE TUMOR POLYP/LESION W/DILATION& WIRE Left 08/17/2021 Procedure: UPPER ENDOSCOPY WITH POSSIBLE DILATION AND ABLATION OF TUMOR(S) AND POSSIBLE MODERATE SEDATION; Surgeon: Sudheer Hayes MD; Location: [facility] Endo; Service: Gastroenterology GA EGD ABLATE TUMOR POLYP/LESION W/DILATION& WIRE N/A 05/21/2024 Procedure: UPPER ENDOSCOPY WITH POSSIBLE DILATION AND ABLATION OF TUMOR(S) AND POSSIBLE MODERATE SEDATION; Surgeon: Sudheer Hayes MD; Location: [facility] Endo; Service: Gastroenterology GA EGD DILATION GASTRIC/DUODENAL STRICTURE N/A 09/18/2024 Procedure: UPPER ENDOSCOPY WITH DILATION OF GASTRIC DUODENAL STRICTURE(S) WITH POSSIBLE MODERATE SEDATION; Surgeon: Sudheer Hayes MD; Location: [facility] GI OR; Service: Gastroenterology GA EGD DILATION GASTRIC/DUODENAL STRICTURE N/A 10/09/2024 Procedure: UPPER ENDOSCOPY WITH DILATION OF GASTRIC DUODENAL STRICTURE(S) WITH POSSIBLE MODERATE SEDATION; Surgeon: Sudheer Hayes MD; Location: [facility] Endo; Service: Gastroenterology GA EGD TRANSORAL BIOPSY SINGLE/MULTIPLE N/A 11/18/2021 Procedure: UPPER ENDOSCOPY WITH POSSIBLE BIOPSY AND/OR POLYPECTOMY AND POSSIBLE MODERATE SEDATION; Surgeon: Sudheer Hayes MD; Location: [address] [place] [address] Endo; Service: Gastroenterology GA EGD TRANSORAL BIOPSY SINGLE/MULTIPLE N/A 12/01/2022 Procedure: UPPER ENDOSCOPY WITH POSSIBLE BIOPSY AND/OR POLYPECTOMY AND POSSIBLE MODERATE SEDATION; Surgeon: Sudheer Hayes MD; Location: [address] [place] [address] Endo; Service: Gastroenterology GA EGD TRANSORAL BIOPSY SINGLE/MULTIPLE N/A 05/11/2023 Procedure: UPPER ENDOSCOPY WITH POSSIBLE BIOPSY AND/OR POLYPECTOMY AND POSSIBLE MODERATE SEDATION; Surgeon: Sudheer Hayes MD; Location: [address] [place] [address]; Service: Gastroenterology GA ESOPHAGOGASTRODUODENOSCOPY TRANSORAL DIAGNOSTIC N/A 11/22/2023 Procedure: UPPER ENDOSCOPY; DIAGNOSTIC WITH BRUSH/WASH (SP) WITH POSSIBLE MODERATE SEDATION; Surgeon: Sudheer Hayes MD; Location: [facility]; Service: Gastroenterology GA ESOPHAGOGASTRODUODENOSCOPY TRANSORAL DIAGNOSTIC N/A 02/13/2024 Procedure: UPPER ENDOSCOPY; DIAGNOSTIC WITH BRUSH/WASH (SP) WITH POSSIBLE MODERATE SEDATION; Surgeon: Sudheer Hayes MD; Location: [facility]; Service: Gastroenterology GA ESOPHAGOGASTRODUODENOSCOPY TRANSORAL DIAGNOSTIC N/A 08/20/2024 Procedure: UPPER ENDOSCOPY; DIAGNOSTIC WITH BRUSH/WASH (SP) WITH POSSIBLE MODERATE SEDATION; Surgeon: Sudheer Hayes MD; Location: [facility]; Service: Gastroenterology ROOT CANAL ROTATOR CUFF REPAIR 2018 TUBAL LIGATION tubal procedure for sterilization WISDOM TOOTH EXTRACTION MEDICATIONS: Current Medications as of 11/20/2024 acetaminophen (Tylenol Arthritis Pain) 650 mg 8 hr tablet Take 650 mg by mouth every 8 hours as needed for pain. azelastine (ASTELIN) 137 mcg (0.1 %) nasal spray SMARTSI [place](s) Both Nares Twice Daily diphenhydrAMINE (BENADRYL) 25 mg capsule Take 25 mg by mouth nightly as needed (Allergy symptoms). fluticasone propionate (FLONASE) 50 mcg/actuation nasal spray SMARTSI [place](s) Both Nares Daily LORazepam (ATIVAN) 1 mg tablet Take 1 mg by mouth daily as needed for anxiety. multivit-min/ferrous fumarate (MULTI VITAMIN ORAL) 0 Refills, Maintenance, 02/24/24 16:20:00 EDT, Partial fill upon patient request if the prescription is for a schedule II opioid drug. pantoprazole DR (PROTONIX) 40 mg tablet Take 1 tablet (40 mg total) by mouth once a day. Patient taking differently: Take 40 mg by mouth 2 (two) times a day. sucralfate (CARAFATE) 1 gram tablet Take 1 tablet (1 g total) by mouth 4 times a day. ALLERGIES: Allergies Allergen Reactions Oxycodone-Acetaminophen Itching Pt is NOT allergic to Tylenol. Only to Oxycodone. SOCIAL HISTORY: Social History Tobacco Use Smoking status: Never Smokeless tobacco: Never Substance Use Topics Alcohol use: Yes Comment: SOCIALLY 1/wk FAMILY HISTORY: Family History Problem Relation Age of Onset Hypertension Mother Hyperlipidemia Mother Diabetes Mother Lung disease Mother Chiari malformation Mother Diabetes Father Prostate cancer Father 65 No Known Problems Sister No Known Problems Brother Chiari malformation Brother Breast cancer Maternal Grandmother 65 Colon cancer Paternal Grandmother 80 REVIEW OF SYSTEMS: Constitutional ROS: negative - fever, fatigue Neurological ROS: negative for - headaches, numbness/tingling, dizziness, weakness Ophthalmic ROS: negative for - blurry vision, decreased vision, glaucoma ENT ROS: negative for - nasal congestion, sore throat, visual changes or vocal changes Respiratory ROS: negative for - cough, orthopnea, shortness of breath, or wheezing Cardiovascular ROS: negative for - chest pain, edema, irregular heartbeat, murmur, palpitations, pacemaker, defibrillator Gastrointestinal ROS: negative for - abdominal pain, nausea, vomiting, diarrhea, +heartburn Genito-Urinary ROS: negative for - dysuria, hematuria, incontinence Dermatological ROS: negative for rash, wound Musculoskeletal ROS: negative for - joint pain, joint swelling Hematological and Lymphatic ROS: negative for - bleeding problems, bruising VITALS: to be done AM of procedure PHYSICAL EXAM: to be done AM of procedure LAB: Pertinent lab results include Lab Results Component Value Date COVID19 Not Detected 11/15/2021 Lab Results Component Value Date BUN 11 06/26/2021 CREATININE 0.78 06/26/2021 IMAGING /OTHER STUDIES: Pertinent results include: Cardiac Imaging EKG Recent EKGs ECG 12 lead Collected: 08/09/2023 8:06 AM (Final result) Impression: NORMAL SINUS RHYTHM CANNOT RULE OUT ANTERIOR INFARCT , AGE UNDETERMINED ABNORMAL ECG NO PREVIOUS ECGS AVAILABLE Confirmed by Dwyane West ([id number]) on 08/12/2023 10:08:19 AM Other Imaging Upper GI Endoscopy 10/09/24 Impression: - Esophageal stenosis. Dilated. Injected. - No gross lesions in the middle third of the esophagus and in the lower third of the esophagus. Several biopsies were obtained at 28, 30 and 34 cm from the incisors. - Z-line regular, 35 cm from the incisors. - Normal stomach. - Normal examined duodenum. CONSULTS: Pertinent consults include: Cardiology: N/A Pulmonology: N/A ANESTHESIA CONSIDERATIONS - Personal problem with anesthesia: PONV per chart review - Family history of anesthesia problems: No - Dental: No - Hardware/implants: Yes, +left breast marker - Activity: patient able to climb a flight of stairs without stopping to catch their breath or having chest pain - STOPBANG: SHANNON resolved with weight loss - Blood Products: patient has no restorationist or cultural beliefs that would prevent blood/blood product transfusion VISIT DIAGNOSIS: 1. History of Greenfield's esophagus 2. Pre-op evaluation PSE ORDERS: No orders of the defined types were placed in this encounter. Assessment/Plan: 53 y.o. female who was interviewed via telephone today prior to Procedure(s): UPPER ENDOSCOPY WITH POSSIBLE DILATION AND ABLATION OF TUMOR(S) AND POSSIBLE MODERATE SEDATION on 12/03/2024. 1. Raymond Boucher was phone screened for the above procedure. This form serves as the history portion of the patient's H&P. The patient will be evaluated by anesthesia and their surgeon on the day of surgery. Vital signs will be obtained in the [facility]U on the day of surgery. A physical exam willbe obtained on the day of surgery by a pre-testing GIZZARD PEELER/PA or the surgeon/designee. The physical exam portion of the H&P will be documented as an addendum to this note, or less commonly as a separate brief progress note. 2. Pre-Op Labs - Not indicated based on surgical procedure or patient's medical history. 3. EKG -Not indicated based on surgical procedure or patient's medical history. 4. DOS Labs- POCT urine HCG 5. Anticoagulation/Aspirin Plan: N/A 6. Cardiac: Director Of Mobile Marketing: no history of cardiac problems Last visit: N/A Outstanding Cardiac Issues: None 7. Pulmonary: Rhinestone Setter: no history of pulmonary problems Last visit: N/A Outstanding Pulmonary Issues: None 8. Pending Items: -DOS HCG Diane Cooper PA-C Pre-Surgical Evaluation Department of Anesthesiology [facility] ----- documented in this encounter Procedure Notes * Sudheer Hayes MD - 12/03/2024 3:14 PM ESTAssociated Order(s): UPPER GI ENDOSCOPY [facility] Gastroenterology Patient Name: Raymond Boucher Procedure Date: 12/03/2024 3:14 PM Date of : 1970 Admit Type: Outpatient Age: 53 Room: [place] [address] Gender: Female Note Status: Finalized Attending MD: Sudheer Hayes MD Procedure: Upper GI endoscopy Indications: Dysphagia, Esophageal squamous dysplasia, Follow-up of esophageal squamous dysplasia, For therapy of esophageal squamous dysplasia Comorbidities Providers: Sudheer Hayes MD, Patrick Haley MD (Fellow) Referring MD: Requesting Provider: Medicines: Propofol per Anesthesia Complications: No immediate complications. Estimated Blood Loss: Estimated blood loss: none. Procedure: Pre-Anesthesia Assessment: - Prior to the procedure, a History and Physical was performed, and patient medications and allergies were reviewed. The patient is competent. The risks and benefits of the procedure and the sedation options and risks were discussed with the patient. All questions were answered and informed consent was obtained. Patient identification and proposed procedure were verified by the physician, the nurse and the anesthesiologist in the pre-procedure area in the procedure room. Mental Status Examination: alert and oriented. Airway Examination: normal oropharyngeal airway and neck mobility. Respiratory Examination: clear to auscultation. CV Examination: normal. Prophylactic Antibiotics: The patient does not require prophylactic antibiotics. Prior Anticoagulants: The patient has taken no anticoagulant or antiplatelet agents. ASA Grade Assessment: III - A patient with severe systemic disease. After reviewing the risks and benefits, the patient was deemed in satisfactory condition to undergo the procedure. The anesthesia plan was to use monitored anesthesia care (MAC). Immediately prior to administration of medications, the patient was re-assessed for adequacy to receive sedatives. The heart rate, respiratory rate, oxygen saturations, blood pressure, adequacy of pulmonary ventilation, and response to care were monitored throughout the procedure. The physical status of the patient was re-assessed after the procedure. After obtaining informed consent, the endoscope was passed under direct vision. Throughout the procedure, the patient's blood pressure, pulse, and oxygen saturations were monitored continuously. The Endoscope was introduced through the mouth, and advanced to the third part of duodenum. The upper GI endoscopy was accomplished without difficulty. The patient tolerated the procedure well. Findings: The Z-line was regular and was found 35 cm from the incisors. One benign-appearing, intrinsic moderate (circumferential scarring or stenosis; an endoscope may pass) stenosis/ring was found 30 cm from the incisors. This stenosis measured less than one cm (in length). The stenosis was easily traversed. A TTS dilator was passed through the scope. Dilation with a 12-13.5-15 mm balloon dilator was performed to 15 mm. The dilation site was examined following dilation and showed mild mucosal disruption. Multiple biopsies were obtained with cold forceps for histology for the esophagus in 4 quadrants every 2cm from 24 to 34 cm from the incisors and placed into seperate jars. The entire examined stomach was normal. The examined duodenum was normal. Impression: - Z-line regular, 35 cm from the incisors. - Very mild benign-appearing esophageal stenosis at 30cm from the incisors. Dilated to 15mm. - Multiple biopsies were obtained from the esophagus every 2cm from 24 to 34 cm from the incisors and placed into seperate jars. - Normal stomach. - Normal examined duodenum. Recommendation: - Discharge patient to home. - The patient will be observed post-procedure, until all discharge criteria are met. - Patient has a contact number available for emergencies. The signs and symptoms of potential delayed complications were discussed with the patient. Return to normal activities tomorrow. Written discharge instructions were provided to the patient. - Soft diet for 3 days, then advance as tolerated to advance diet as tolerated. - Await pathology results. - Telephone endoscopist for pathology results in 1 week. - Repeat upper endoscopy in 4 months for surveillance. Attending Participation: I was present and participated during the entire procedure, including non-levy portions. Sudheer Hayes MD 12/03/2024 3:54:58 PM This report has been signed electronically. Number of Addenda: 0 Note Initiated On: 12/03/2024 3:14 PM documented in this encounter Plan of Treatment Upcoming Encounters Date Type Department Care Team (Latest Contact Info) Description 03/04/2025 1:00 PM EDT Pre-Admission Testing [facility] [address] [place] [address] [address] [place] [address] 03/18/2025 12:30 PM EDT Hospital Encounter [facility] [address] [place] [address] Sudheer Hayes MD [address] [place] [id number] 03/18/2025 12:30 PM EDT - 03/18/2025 1:20 PM EDT Surgery [facility] [address] [place] [address] Sudheer Hayes MD [address] [place] [id number] UPPER ENDOSCOPY; DIAGNOSTIC WITH BRUSH/WASH (SP) WITH POSSIBLE MODERATE SEDATION [22969 (CPT??)] Scheduled Procedures Name Priority Associated Diagnoses Date/Ti me UPPER ENDOSCOPY; DIAGNOSTIC WITH BRUSH/WASH (SP) WITH POSSIBLE MODERATE SEDATION History of Greenfield's esophagus 03/18/2025 12:30 PM EDT documented as of this encounter Procedures * Due to [place] [employer] law, this organization might not be sharing negative HIV tests. Procedure Name Priority Date/Time Associated Diagnosis Comments TISSUE EXAM Routine 12/03/2024 3:34 PM EST History of Greenfield's esophagus GA EGD ABLATE TUMOR POLYP/LESION W/DILATION& WIRE 12/03/2024 3:21 PM EST History of Greenfield's esophagus UPPER GI ENDOSCOPY 12/03/2024 documented in this encounter Results * Due to [place] [employer] law, this organization might not be sharing negative HIV tests. * Tissue Exam (12/03/2024 3:34 PM EST) Final Diagnosis Specimen #1 - Esophagus (at 34 cm), Biopsy: - Squamous mucosa with high-grade squamous intra-epithelial lesion (see note). - No invasive carcinoma seen. Note: Immunostains for p16 and ki67 support the diagnosis of high-grade squamous intra-epithelial lesion. Specimen #2 - Esophagus (at 32 cm), Biopsy: - Squamous mucosa with high-grade squamous intra-epithelial lesion (see note). - No invasive carcinoma seen. Note: Immunostains for p16 and ki67 support the diagnosis of high-grade squamous intra-epithelial lesion. Specimen #3 - Esophagus (at 30 cm), Biopsy: - Squamous mucosa with high-grade squamous intra-epithelial lesion (see note). - No invasive carcinoma seen. Note: Immunostains for p16 and ki67 support the diagnosis of high-grade squamous intra-epithelial lesion. Specimen #4 - Esophagus (at 28 cm), Biopsy: - Squamous mucosa within normal limits. - Negative for dysplasia. Specimen #5 - Esophagus (at 26 cm), Biopsy: - Squamous mucosa within normal limits. - Negative for dysplasia. [facility] 12/06/2024 12:02 PM EST [facility] ANATOMIC PATHOLOGY LABORATORY Clinical History Pre-op diagnosis: 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] [facility] 12/06/2024 12:02 PM EST [facility] Gross Description 1. Esophagus Received in formalin, labeled with the patient's name, MRN, date of , and 34 cm esophagus biopsy , are 3 celeste-white, irregular soft tissue fragments (ranging from 0.3 x 0.3 x 0.2 cm to 0.5 x 0.3 x 0.2 cm) are filtered and entirely submitted in cassette 1A. 2. Esophagus Received in formalin, labeled with the patient's name, MRN, date of , and esophagus 32 cm , are multiple celeste-white, irregular soft tissue fragments (0.9 x 0.4 x 0.3 cm in aggregate) are filtered and entirely submitted in cassette 2A. 3. Esophagus Received in formalin, labeled with the patient's name, MRN, date of , and 30 cm esophagus BX , are 4 celeste-white, irregular soft tissue fragments (ranging from 0.2 x 0.1 x 0.1 cm to 0.3 x 0.3 x 0.2 cm) are filtered and entirely submitted in cassette 3A. 4. Esophagus Received in formalin, labeled with the patient's name, MRN, date of , and 28 cm esophagus biopsy , are multiple celeste-white, irregular soft tissue fragments (1.3 x 0.5 x 0.3 cm in aggregate) are filtered and entirely submitted in cassette 4A. 5. Esophagus Received in formalin, labeled with the patient's name, MRN, date of , and 26 cm esophagus BX , are multiple celeste-white, irregular soft tissue fragments (0.8 x 0.6 x 0.3 cm) are filtered and entirely submitted in cassette 5A. [facility] 12/06/2024 12:02 PM EST [facility] Gross Description User Grossing complete by Jax Koenig on 12/04/2024 11:04 AM [facility] 12/06/2024 12:02 PM EST [facility] Embedded Images [facility] 12/06/2024 12:02 PM EST [facility] Disclaimer Some of these tests were developed and their performance characteristics determined by the Immunoperoxidase/ Histology Laboratory of [facility]. They have not been cleared or approved by the U.S. Food and Drug Administration. The FDA has determined that such clearance or approval is not necessary. This test is used for clinical purposes. It should not be regarded as investigational or for research. This laboratory is certified under the Clinical Laboratory Improvement Amendments of 1988 (CLIA-88) as qualified to perform high complexity clinical laboratory testing. [facility] MANUAL 12/06/2024 12:02 PM EST [facility] Resulting Agency Case was signed out at [facility], Department of Pathology, [facility] CLIA [id number] [facility] MANUAL 12/06/2024 12:02 PM EST [facility] Report Header Surgical Pathology Report ? Case: [id number] ? Authorizing Provider: ??Sudheer Hayes MD ? Collected: ? 12/03/2024 1534 ? Ordering Location: ? [facility] ? Received: ?12/04/2024 1033 ? [place] ? Endoscopy ? Pathologist: ? Eliseo Reid MD ? Specimens: ?? 1) - Esophagus, 34cm esophagus biopsy ? 2) - Esophagus, esophagus 32cm ? 3) - Esophagus, 30cm esophagus bx ? 4) - Esophagus, 28cm esophagus biopsy ? 5) - Esophagus, 26cm esophagus bx ? 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] Tissue specimen (specimen) Esophageal structure / Unknown 12/03/2024 3:40 PM EST 12/04/2024 10:33 AM EST Comment:Pre-op diagnosis: 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] Tissue specimen (specimen) Esophageal structure / Unknown 12/03/2024 3:41 PM EST 12/04/2024 10:33 AM EST Comment:Pre-op diagnosis: 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] us Sudheer Hayes MD LAB PATHOLOGY/CYTOLOGY ORDERAB LES Final Result [facility] ANATOMIC PATHOLOGY LABORATORY [address] [place] [address], * UPPER GI ENDOSCOPY (12/03/2024) Narrative Procedure Note Sudheer Hayes MD - 12/03/2024 3:14 PM EST [facility] Gastroenterology Patient Name: Raymond Boucher Procedure Date: 12/03/2024 3:14 PM Date of : 1970 Admit Type: Outpatient Age: 53 Room: [facility] 06 Gender: Female Note Status: Finalized Attending MD: Sudheer Hayes MD Procedure: Upper GI endoscopy Indications: Dysphagia, Esophageal squamous dysplasia, Follow-up of esophageal squamous dysplasia, For therapy of esophageal squamous dysplasia Comorbidities Providers: Sudheer Hayes MD, Patrick Haley MD (Fellow) Referring MD: Requesting Provider: Medicines: Propofol per Anesthesia Complications: No immediate complications. Estimated Blood Loss: Estimated blood loss: none. Procedure: Pre-Anesthesia Assessment: - Prior to the procedure, a History and Physicalwas performed, and patient medications and allergieswere reviewed. The patient is competent. The risks and benefits of the procedure and the sedation optionsand risks were discussed with the patient. Allquestions were answered and informed consent was obtained. Patient identification and proposed procedure were verified by the physician, the nurse and the anesthesiologist in the pre-procedure area in the procedure room. Mental Status Examination: alertand oriented. Airway Examination: normal oropharyngeal airway and neck mobility. Respiratory Examination: clear to auscultation. CV Examination: normal. Prophylactic Antibiotics: The patient does notrequire prophylactic antibiotics. Prior Anticoagulants: The patient has taken no anticoagulant or antiplatelet agents. ASA Grade Assessment: III - A patient with severe systemic disease. After reviewing the risksand benefits, the patient was deemed in satisfactory condition to undergo the procedure. The anesthesia plan was to use monitored anesthesia care (MAC). Immediately prior to administration of medications, the patient was re-assessed for adequacy to receive sedatives. The heart rate, respiratory rate, oxygen saturations, blood pressure, adequacy of pulmonary ventilation, and response to care were monitored throughout the procedure. The physical status ofthe patient was re-assessed after the procedure. After obtaining informed consent, the endoscope was passed under direct vision. Throughout theprocedure, the patient's blood pressure, pulse, and oxygen saturations were monitored continuously. TheEndoscope was introduced through the mouth, and advanced tothe third part of duodenum. The upper GI endoscopy was accomplished without difficulty. The patienttolerated the procedure well. Findings: The Z-line was regular and was found 35 cm from the incisors. One benign-appearing, intrinsic moderate (circumferential scarring or stenosis; an endoscope may pass) stenosis/ring was found 30 cm fromthe incisors. This stenosis measured less than one cm (in length). The stenosis was easily traversed. A TTS dilator was passed through the scope. Dilation with a 12-13.5-15 mm balloon dilator was performed to15 mm. The dilation site was examined following dilation and showed mild mucosal disruption. Multiple biopsies were obtained with cold forceps for histology forthe esophagus in 4 quadrants every 2cm from 24 to 34 cm from the incisors and placed into seperate jars. The entire examined stomach was normal. The examined duodenum was normal. Impression: - Z-line regular, 35 cm from the incisors. - Very mild benign-appearing esophageal stenosis at 30cm from the incisors. Dilated to 15mm. - Multiple biopsies were obtained from theesophagus every 2cm from 24 to 34 cm from the incisors and placed into seperate jars. - Normal stomach. - Normal examined duodenum. Recommendation: - Discharge patient to home. - The patient will be observed post-procedure,until all discharge criteria are met. - Patient has a contact number available for emergencies. The signs and symptoms of potential delayed complications were discussed with thepatient. Return to normal activities tomorrow. Written discharge instructions were provided to thepatient. - Soft diet for 3 days, then advance as toleratedto advance diet as tolerated. - Await pathology results. - Telephone endoscopist for pathology results in 1 week. - Repeat upper endoscopy in 4 months [facility]. Attending Participation: I was present and participated during the entire procedure, including non-levy portions. Sudheer Hayes MD 12/03/2024 3:54:58 PM This report has been signed electronically. Number of Addenda: 0 Note Initiated On: 12/03/2024 3:14 PM us Sudheer Hayes MD PROVATION PROCEDURES Final Res ult documented in this encounter Visit Diagnoses Diagnosis History of Greenfield's esophagus History of Greenfield's esophagus History of Greenfield's esophagus documented in this encounter Administered Medications documented in this encounter Active and Recently Administered Medications Times are shown in EST. PRN Medication Order 12/01/2024 12/02/2024 12/03/2024 flumazeniL (ROMAZICON) injection 0.2 mg 0.2 mg, intravenous, Every 5 min PRN, Respiratory Distress or Over Sedation, Starting on Tue12/03/24 at 1615, 3 doses, Until Tue12/03/24 at 1836, Recovery (GI) naloxone 0.04 mg injection 0.04 mg, intravenous, Every 3 minutes as needed, opioid reversal, respiratory depression, Starting on 12/03/24 at 1615, 3 doses, Until 12/03/24 at 1836, Recovery (GI), Draw up 1 mL from 0.4 mg/mL injection and add 9 mL NS for a final concentration of 0.04 mg/mL. 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
--- OUTSIDE RECORDS SUMMARY | 2024-12-24 14:17 | XMS_ITS | Encounter Summary ---
Author Organization [facility] Address [address] [place] [address] Care Team Providers Care Tab Cutting Machine Operator Name Role Phone Black HawkChan Jane Primary Care Provider [phone] Encounter Details Date Type Department Care Team (Late st Contact Info) Description 11/14/2024 [employer] Message [facility] [employer] [facility] [address] [place] [address] [employer], Generic Provider [address] [place], [place] [id number] payment plan Social History Tobacco Use Types [...] Description 03/04/2025 1:00 PM EDT Pre-Admission Testing [facility] [address] [facility] [address] [place] [address] 03/18/2025 12:30 PM EDT Hospital Encounter [facility] Endoscopy [address] [place] [address] Sudheer Hayes MD [address] [place] [address] 03/18/2025 12:30 PM EDT - 03/18/2025 1:20 PM EDT Surgery [facility] Endoscopy [address] [place] [address] Sudheer Hayes MD [address] [place] [id number] UPPER ENDOSCOPY; DIAGNOSTIC WITH BRUSH/WASH (SP) WITH POSSIBLE MODERATE SEDATION [25379 (CPT??)] Scheduled Procedures Name Priority Associated Diagnoses Date/Ti me UPPER ENDOSCOPY; DIAGNOSTIC WITH BRUSH/WASH (SP) WITH POSSIBLE MODERATE SEDATION History of Greenfield's esophagus 03/18/2025 12:30 PM EDT documented as of this encounter Visit Diagnoses Not on filedocumented in this encounter Care Teams Tab Cutting Machine Operator Relationship Specialty Start Date End Date Chan Wilson [address] [place] [address] PCP - General Internal Medicine 01/09/20 documented as of this encounter
--- OUTSIDE RECORDS SUMMARY | 2024-12-24 14:17 | XMS_ITS | Clinical Summary ---
Author Organization [facility] Address [address] [place] [address] Care Team Providers Care Automation Control Integrator Name Role Phone Chan Wilson Primary Care Provider [phone] Allergies Active Allergy Reactions Criticality Noted Date Comments Oxycodone Itching,Agitation 12/03/2024 Medications LORazepam (ATIVAN) 1 mg tablet Take 1 mg by mouth daily as needed for anxiety. 0 Active diphenhydrAMINE (BENADRYL) 25 mg capsule Take 25 mg by mouth nightly as needed (Allergy symptoms). Active acetaminophen (Tylenol Arthritis Pain) 650 mg 8 hr tablet Take 650 mg by mouth every 8 hours as needed for pain. Active fluticasone propionate (FLONASE) 50 mcg/actuation nasal spray Administer 2 sprays into each nostril once a day. 4 Active azelastine (ASTELIN) 137 mcg (0.1 %) nasal spray SMARTSI [place](s) Both Nares Twice Daily 4 Active multivit-min/fe rrous fumarate (MULTI VITAMIN ORAL) 0 Refills, Maintenance, 02/24/24 16:20:00 EDT, Partial fill upon patient request if the prescription is for a schedule II opioid drug. [address] (PROTONIX) 40 mg tablet Take 1 tablet (40 mg total) by mouth once a day. 90 tablet 3 4 05/16/20 Active Additional Information Patient taking differently:40 mg oral2 times daily, Reported on 12/03/2024 sucralfate (CARAFATE) 1 gram tablet Take 1 tablet (1 g total) by mouth 4 times a day. 120 tablet Active amoxicillin-cla vulanate (AUGMENTIN) 400-57 mg chewable tablet Chew and swallow 800 mg by mouth 2 times a day. Active FLUoxetine (PROzac) 40 mg capsule Take 40 mg by mouth once a day. Active Active Problems Problem Noted Date Diagnosed Date Postmenopausal bleeding 08/06/2024 Anxiety 05/07/2024 Diverticulitis 05/07/2024 Leiomyoma 05/07/2024 Papanicolaou smear of vagina with low grade squamous intraepithelial lesion (LGSIL) 05/07/2024 Greenfield's esophagus 05/07/2024 Abnormal findings on diagnostic imaging of breas t 05/07/2024 Severe obesity 11/11/2023 Greenfield's esophagus with high grade dysplasia Depression 06/16/2021 Bladder incontinence 03/24/2021 Chronic SI joint pain 07/24/2013 Encounters Date Type Department Care Team Description 12/19/2024 myChart Message [facility] [employer] Management [address] [place] [address] Mychart, Generic Provider payment plan 12/13/2024 Results Follow-Up [facility] [address] [place] [address] City Weighmaster: Sudheer Linda MD 12/03/2024 3:14 PM EST Anesthesia Event [facility] Endoscopy [address] [place] [address] Dany Westbrook MD Matheos, Theofilos P., MD 12/03/2024 2:30 PM EST - 12/03/2024 3:15 PM EST Surgery [facility] Endoscopy [address] [place] [address] Sudheer Hayes MD UPPER ENDOSCOPY WITH POSSIBLE DILATION AND ABLATION OF TUMOR(S) AND POSSIBLE MODERATE SEDATION [61730 (CPT??)] 12/03/2024 1:26 PM EST - 12/03/2024 4:35 PM EST Hospital Encounter [facility] Endoscopy [address] [place] [address] Sudheer Hayes MD History of Greenfield's esophagus Discharge Disposition: Home or Self Care () 11/20/2024 3:00 PM EST Pre-Admission Testing [facility] [address] [facility] 3rd [place] [address] History of Greenfield's esophagus (Primary Dx); Pre-op evaluation 11/14/2024 poLighthart Message [facility] [employer] [address] [place] [address] Etactshart, Generic Provider payment plan 11/06/2024 Prep for Case [facility] [address] [place] [id number] City Weighmaster: Sudheer Linda MD 10/18/2024 Telephone [facility] [address] [place] [id number] City Weighmaster: Melvina Mai Telephone Intake, Staff PAC Clinical Questions-Freddy; PAC Test Result Request 10/09/2024 2:07 PM EST - 10/09/2024 3:07 PM EST Surgery [facility] End[facility] [address] [place] [address] Sudheer Hayes MD UPPER ENDOSCOPY WITH DILATION OF GASTRIC DUODENAL STRICTURE(S) WITH POSSIBLE MODERATE SEDATION [08174 (CPT??)] 10/09/2024 2:07 PM EST Anesthesia Event [facility] Endoscopy [address] [place] [address] Dany Westbrook MD Asselin, Emily, CRNA 10/09/2024 1:16 PM EST - 10/09/2024 4:00 PM EST Hospital Encounter [facility] End[facility] [address] [place] [address] Sudheer Hayes MD Greenfield's esophagus with high grade dysplasia Discharge Disposition: Home or Self Care (01) 10/06/2024 Prep for Case [facility] [address] [place] [address] City Weighmaster: Sudheer Linda MD from Last 3 Months Immunizations Immunization Administration Dates Next Due Covid-19, Pfizer, mRNA, [place] valent, PF 30 mcg/0.3 mL dose (for ages 12 and older) 01/16/2021 Family History Medical History Relation Name Comments No Known Problems Brother 1 Chiari malformation Brother 2 Diabetes Father Prostate cancer Father Breast cancer Maternal Grandmother Chiari malformation Mother Diabetes Mother Hyperlipidemia Mother Hypertension Mother Lung disease Mother Colon cancer Paternal Grandmother No Known Problems Sister 1 Relation Name Status Comments Brother 1 Alive Brother 2 Alive Brother 3 Alive Brother 4 Alive Father Alive Maternal Grandmother Mother Alive Paternal Grandmother Sister 1 Alive Sister 2 Alive Social History Tobacco Use Types Packs/Day Years Used Date Smoking Tobacco: Never Smokeless Tobacco: Never Tobacco Cessation:Counseling Given: Not Answered Alcohol Use Standard Drinks/Week Comments Yes 0 (1 standard drink = 0.6 oz pur e alcohol) SOCIALLY 1/wk Comments No Sex and Gender Information Value Date Recorded Sex Assigned at Female 12/02/2020 12:19 AM EST Legal Sex Female 8:28 AM EST Gender Identity Female 12/02/2020 12:19 AM EST Sexual Orientation Straight 07/30/2020 9: 05 AM EDT Last Filed Vital Signs Vital Sign Reading Time Taken Comments Blood Pressure 132/71 12/03/2024 4:19 PM EST Pulse 62 12/03/2024 4:19 PM EST Temperature 36.3 ??C (97.3 ??F) 12/03/2024 3:52 PM ES T Respiratory Rate 25 12/03/2024 4:19 PM EST Oxygen Saturation 100% 12/03/2024 4:19 PM EST Inhaled Oxygen Concentration - - Weight 78.9 kg (174 lb) 10/09/2024 1:46 PM EST Height 147.3 cm (4' 10 ) 10/09/2024 1:46 PM EST Body Mass Index 36.37 10/09/2024 1:46 PM EST Plan of Treatment Upcoming Encounters Date Type Department Care Team (Latest Contact Info) Description 03/04/2025 1:00 PM EDT Pre-Admission Testing [facility] [address] [place] [address] 3rd [place] [address] 03/18/2025 12:30 PM EDT Hospital Encounter [facility] [address] [place] [address] Sudheer Hayes MD [address] [place] [address] 03/18/2025 12:30 PM EDT - 03/18/2025 1:20 PM EDT Surgery [facility]oscopy [address] [place] [address] Sudheer Hayes MD [address] [place] [address] UPPER ENDOSCOPY; DIAGNOSTIC WITH BRUSH/WASH (SP) WITH POSSIBLE MODERATE SEDATION [68895 (CPT??)] Scheduled Procedures Name Priority Associated Diagnoses Date/Ti me UPPER ENDOSCOPY; DIAGNOSTIC WITH BRUSH/WASH (SP) WITH POSSIBLE MODERATE SEDATION History of Greenfield's esophagus 03/18/2025 12:30 PM EDT Health Maintenance Due Date Last Done Comments Cervical Cancer Screening 1970 HIV Screening 1970 HPV and Pap Smear 1969 Hepatitis C Screening 1970 Pap Smear 1969 Hepatitis B Vaccines (1 of 3 - 19+ 3-dose series) 1988 DTaP,Tdap,and Td Vaccines (1 - Tdap) 1991 Mammogram 2009 Pneumococcal Vaccine: 50+ Ye ars (1 of 1 - PCV) 2019 Zoster Vaccines (1 of 2) 2019 COVID-19 Vaccine (4 - 2023-2 5 season) 2024 12/12/2021, 02/06/2021, 01/16/2021 Alcohol/Substance Use Screening 10/31/2024 Depression Evaluation 10/31/2024 Social Drivers of Health Bree ual Screening 10/31/2024 Colonoscopy 12/01/2027 12/01/2022, 12/01/2022 RSV Vaccine (60+ years old a nd patients) (1 - 1-dose 75+ series) 2044 Influenza Vaccine Completed 10/05/2024, , 08/20/2021, Additional history exists Procedures * Due to [place] [employer] law, this organization might not be sharing negative HIV tests. Procedure Name Priority Date/Time Associated Diagnosis Comments TISSUE EXAM Routine 12/03/2024 3:34 PM EST History of Greenfield's esophagus [place] EGD ABLATE TUMOR POLYP/LESION W/DILATION& WIRE 12/03/2024 3:21 PM EST History of Greenfield's esophagus UPPER GI ENDOSCOPY 12/03/2024 TISSUE EXAM Routine 10/09/2024 2:21 PM EST Greenfield's esophagus with high grade dysplasia [place] EGD DILATION GASTRIC/DUODENAL STRICTURE 10/09/2024 2:02 PM EST Greenfield's esophagus with high grade dysplasia Special Needs SHANNON no CPAP UPPER GI ENDOSCOPY 10/09/2024 COLONOSCOPY 12/01/2022 from Last 3 Months or Most Recently Relevant to Health Maintenance Results * Due to [place] [employer] law, this organization might not be sharing negative HIV tests. * Tissue Exam (12/03/2024 3:34 PM EST) Only the most recent of2 resultswithin the time period is included. Final Diagnosis Specimen #1 - Esophagus (at [...] within normal limits. - Negative for dysplasia. [facility] MANUAL 12/06/2024 12:02 PM EST [employer] [facility] Clinical History Pre-op diagnosis: 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] [facility] 12/06/2024 12:02 PM EST [facility] [facility] Gross Description 1. [...] filtered and entirely submitted in cassette 5A. [facility] 12/06/2024 12:02 PM EST [employer] [facility] Gross Description User Grossing complete by Jax Koenig on 12/04/2024 11:04 AM [facility] 12/06/2024 12:02 PM EST [employer] [facility] Embedded Images [facility] MANUAL 12/06/2024 12:02 PM EST [employer] [facility] Disclaimer Some of these tests were developed and their performance characteristics determined by the Immunoperoxidase/ Histology Laboratory of [facility]. They have not been cleared or [...] to perform high complexity clinical laboratory testing. [facility] 12/06/2024 12:02 PM EST [employer] [facility] Resulting Agency Case was signed out at [facility], Department of Pathology, [facility] CLIA [id number] [facility] MANUAL 12/06/2024 12:02 PM EST [facility] [facility] Report Header Surgical Pathology Report ? Case: [id number] ? Authorizing Provider: ??Sudheer Hayes MD ? Collected: ? 12/03/2024 1534 ? Ordering Location: ? [facility] ? Received: ?12/04/2024 1033 ? [facility] ? Endoscopy ? Pathologist: ? Eliseo Reid, MD ? Specimens: ?? 1) - Esophagus, 34cm esophagus biopsy ? 2) - Esophagus, esophagus 32cm ? 3) - Esophagus, 30cm esophagus bx ? 4) - Esophagus, 28cm esophagus biopsy ? 5) - Esophagus, 26cm esophagus bx ? 12/06/2024 12:02 PM EST [employer] [facility] Tissue Esophageal structure [...] MD LAB PATHOLOGY/CYTOLOGY ORDERAB LES Final Result [facility] [address] [place] [address], * UPPER GI ENDOSCOPY (12/03/2024) Narrative Procedure Note Sudheer Hayes MD - 12/03/2024 3:14 PM EST [facility] Gastroenterology Patient Name: Raymond Boucher Procedure Date: 12/03/2024 3:14 PM Date of : 1970 Admit Type: Outpatient Age: 53 Room: [place] [address] Gender: Female Note Status: Finalized Attending MD: [...] upper endoscopy in 4 months [facility]. Attending Participation: I was present and participated during the entire procedure, including non-levy portions. Sudheer Hayes MD 12/03/2024 3:54:58 PM This report has been signed electronically. Number of Addenda: 0 Note Initiated On: 12/03/2024 3:14 PM us Sudheer Hayes MD PROVATION PROCEDURES Final Res ult * UPPER GI ENDOSCOPY (10/09/2024) Narrative Procedure Note Sudheer Hayes MD - 10/09/2024 1:57 PM EST [facility] Gastroenter[facility] Patient Name: Raymond Boucher Procedure Date: 10/09/2024 1:57 PM Date of : 1970 Admit Type: Outpatient Age: 53 Room: [facility] 06 Gender: Female Note Status: Finalized Attending MD: Sudheer Hayes MD Procedure: Upper GI endoscopy Indications: For therapy of esophageal squamous dysplasia, Squamous HGD ofesophagus; EGD 02/13/24 without HGD and Cryotherapy done. EGD 04/2024 withSquamous mucosa with high-grade squamous intra-epithelial lesion at 34 cm and32 cm. Severe stenosis on last endoscopy Comorbidities Patient Profile: This is a 53 year old female. Refer to note inpatient chart for documentation of history and physical. Providers: Sudheer Hayes MD, Jacob Meraz MD (Fellow) Referring MD: Requesting Provider: Medicines: Monitored Anesthesia Care Complications: No immediate complications. Estimated blood loss: Minimal. Estimated Blood Loss: Estimated blood loss was minimal. Procedure: Pre-Anesthesia Assessment: - Prior to the procedure, a History and Physicalwas performed, and patient medications and allergieswere reviewed. The patient is competent. The risks and benefits of the procedure and the sedation optionsand risks were discussed with the patient. Allquestions were answered and informed consent was obtained. Patient identification and proposed procedure were verified by the physician, the nurse and the transportation department head in the pre-procedure area in theendoscopy suite. Mental Status Examination: normal.Prophylactic Antibiotics: The patient does not requireprophylactic antibiotics. Prior Anticoagulants: The patient has taken no anticoagulant or antiplatelet agents. ASA Grade Assessment: III - A patient with severesystemic disease. After reviewing the risks and benefits,the patient was deemed in satisfactory condition to undergo the procedure. The anesthesia plan was touse monitored anesthesia care (MAC). Immediately priorto administration of medications, the patient was re-assessed for adequacy to receive sedatives. The heart rate, respiratory rate, oxygen saturations, blood pressure, adequacy of pulmonary ventilation,and response to care were monitored throughout the procedure. The physical status of the patient was re-assessed after the procedure. After obtaining informed consent, the endoscope was passed under direct vision. Throughout theprocedure, the patient's blood pressure, pulse, and oxygen saturations were monitored continuously. TheEndoscope was introduced through the mouth, and advanced tothe second part of duodenum. The upper GI endoscopy was accomplished without difficulty. The patienttolerated the procedure well. Findings: One severe stenosis was found 33 cm from the incisors. The stenosiswas traversed after dilation. A TTS dilator was passed through the scope. Dilation with an 8-9-10 mm x 5.5 cm CRE balloon dilator was performedto 10 mm. The dilation site was examined and showed moderate mucosal disruption and mild improvement in luminal narrowing. Area was successfully injected with 2 mL of triamcinolone (20 mg/mL) for drug delivery. No gross lesions were noted in the middle third of the esophagus andin the lower third of the esophagus. Several biopsies were obtained at28, 30 and 34 cm from the incisors with cold forceps for histology. The Z-line was regular and was found 35 cm from the incisors. The entire examined stomach was normal. The examined duodenum was normal. Impression: - Esophageal stenosis. Dilated. Injected. - No gross lesions in the middle third of the esophagus and in the lower third of the esophagus. Several biopsies were obtained at 28, 30 and 34 cm from the incisors. - Z-line regular, 35 cm from the incisors. - Normal stomach. - Normal examined duodenum. Recommendation: - Discharge patient to home. - Clear liquid diet today, then advance astolerated to soft diet for 1 week. - Await pathology results. 1. Biopsies at 34 cm; 2. Biopsies at 30 cm; 3. Biopsies at 28 cm. - Telephone endoscopist for pathology results in 1 week. - Continue PPI twice a day. - Repeat upper endoscopy in 2-4 weeks to check healing/evaluation of stenosis. - Patient has a contact number available for emergencies. The signs and symptoms of potential delayed complications were discussed with thepatient. Return to normal activities tomorrow. Written discharge instructions were provided to thepatient. Sudheer Hayes MD 10/09/2024 2:39:03 PM This report has been signed electronically. Number of Addenda: 0 Note Initiated On: 10/09/2024 1:57 PM us Sudheer Hayes MD PROVATION PROCEDURES Final Res ult * COLONOSCOPY (12/01/2022) Narrative Procedure Note Sudheer Hayes MD - 12/01/2022 11:28 AM EST [facility] Endoscopy - [address] [place] [address] Patient Name: Raymond Boucher Procedure Date: 12/01/2022 11:28 AM Date of : 1970 Admit Type: Outpatient Age: 51 Room: [place] [address] Gender: Female Note Status: Finalized Attending MD: Sudheer Hayes MD Procedure: Colonoscopy Indications: Screening for colorectal malignant neoplasm Providers: Sudheer Hayes MD Referring MD: Chan Roth MD (Referring MD), Gilbert Reno (Referring ) Requesting Provider: Medicines: Monitored Anesthesia Care Complications: No immediate complications. Procedure: Pre-Anesthesia Assessment: - Prior to the procedure, a History and Physicalwas performed, and patient medications and allergieswere reviewed. The patient is competent. The risks and benefits of the procedure and the sedation optionsand risks were discussed with the patient. Allquestions were answered and informed consent was obtained. Patient identification and proposed procedure were verified by the physician in the pre-procedurearea. Mental Status Examination: alert and oriented.Airway Examination: normal oropharyngeal airway and neck mobility. Respiratory Examination: clear to auscultation. CV Examination: normal. Prophylactic Antibiotics: The patient does not requireprophylactic antibiotics. Prior Anticoagulants: The patient has taken no anticoagulant or antiplatelet agents. ASA Grade Assessment: II - A patient with mild systemic disease. After reviewing the risks and benefits,the patient was deemed in satisfactory condition to undergo the procedure. The anesthesia plan was touse monitored anesthesia care (MAC). Immediately priorto administration of medications, the patient was re-assessed for adequacy to receive sedatives. The heart rate, respiratory rate, oxygen saturations, blood pressure, adequacy of pulmonary ventilation,and response to care were monitored throughout the procedure. The physical status of the patient was re-assessed after the procedure. After I obtained informed consent, the scope was passed under direct vision. Throughout theprocedure, the patient's blood pressure, pulse, and oxygen saturations were monitored continuously. The colonoscope was introduced through the anus and advanced to the cecum, identified by appendiceal orifice and ileocecal valve. The colonoscopy was performed without difficulty. The patient tolerated the procedure well. The quality of the bowel preparation was good. The ileocecal valve,appendiceal orifice, and rectum were photographed. Findings: The perianal and digital rectal examinations were normal. A 5 mm polyp was found in the cecum. The polyp was sessile. The polyp was removed with a cold snare. Resection and retrieval were complete. Verification of patient identification for the specimen was done. Estimated blood loss was minimal. Multiple small-mouthed diverticula were found in the sigmoid colon. Impression: - One 5 mm polyp in the cecum, removed with a cold snare. Resected and retrieved. - Diverticulosis in the sigmoid colon. Recommendation: - Await pathology results. - Telephone endoscopist for pathology results in 1 week. - Repeat colonoscopy in [address] Reno. Sudheer Hayes MD 12/01/2022 12:22:58 PM This report has been signed electronically. Number of Addenda: 0 Note Initiated On: 12/01/2022 11:28 AM Estimated Blood Loss: Estimated blood loss: none. 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 Expl anation Health Care Proxy 01/09/2020 10:59 AM Demetria Boucher * Presumed Full Code (Latest Code Status on File) Date Activated Date Inactivated Comments 11/18/2021 8:52 AM 11/18/2021 12:34 PM * Presumed Full Code Date Activated Date Inactivated Comments 08/07/2020 8:55 AM 08/07/2020 12:26 PM Healthcare Agents on File Name Relationship Healthcare Agent Relationshi p Communication Demetria Boucher Son Health Care Agent Care Teams Automation Control Integrator Relationship Specialty Start Date End Date Chan Wilson [address] [place] [id number] PCP - General Internal Medicine 01/09/20
--- OUTSIDE RECORDS SUMMARY | 2024-12-24 14:17 | XMS_ITS | Referral Summary ---
Author Organization [facility] Address [address] [place] [address] Care Team Providers Care Rubber Turner Name Role Phone Chan Wilson Primary Care Provider [phone] Encounters Date Type Department Care Team Description 12/19/2024 myChart Message [facility] [employer] Management [address] [place] [address] Mychart, Generic Provider payment plan 12/13/2024 Results Follow-Up [facility] [address] [place] [address] Biofuels Production Manager: Sudheer Linda MD 12/03/2024 2:30 PM EST - 12/03/2024 3:15 PM EST Surgery [facility] [address] [place] [address] Sudheer Hayes MD UPPER ENDOSCOPY WITH POSSIBLE DILATION AND ABLATION OF TUMOR(S) AND POSSIBLE MODERATE SEDATION [23030 (CPT??)] 12/03/2024 3:14 PM EST Anesthesia Event [facility] [address] [place] [address] Dany Westbrook MD Matheos, Theofilos P., MD 12/03/2024 1:26 PM EST - 12/03/2024 4:35 PM EST Hospital Encounter [facility] [address] [place] [address] Sudheer Hayes MD History of Greenfield's esophagus Discharge Disposition: Home or Self Care (01) 11/20/2024 3:00 PM EST Pre-Admission Testing [facility] [address] [facility] 3rd [place] [address] History of Greenfield's esophagus (Primary Dx); Pre-op evaluation 11/14/2024 myChart Message [facility] [email or web address] Revenue Cycle Management [address] [place] [address] [employer] Provider payment plan 11/06/2024 Prep for Case [facility] [address] [place] [address] Biofuels Production Manager: Sudheer Linda MD 10/18/2024 Telephone [facility] [address] [place] [address] Biofuels Production Manager: Melvina Mai Telephone Intake, Staff PAC Clinical Questions-Freddy; PAC Test Result Request 10/09/2024 2:07 PM EST - 10/09/2024 3:07 PM EST Surgery [facility] [address] [place] [address] Sudheer Hayes MD UPPER ENDOSCOPY WITH DILATION OF GASTRIC DUODENAL STRICTURE(S) WITH POSSIBLE MODERATE SEDATION [05964 (CPT??)] 10/09/2024 2:07 PM EST Anesthesia Event [facility] [address] [place] [address] Dany Westbrook MD Asselin, Emily, CRNA 10/09/2024 1:16 PM EST - 10/09/2024 4:00 PM EST Hospital Encounter [facility] [address] [place] [address] Sudheer Hayes MD Greenfield's esophagus with high grade dysplasia Discharge Disposition: Home or Self Care (01) 10/06/2024 Prep for Case [facility] [address] [place], [place] [phone] Biofuels Production Manager: Sudheer Linda MD from Last 3 Months Allergies Active Allergy Reactions Criticality Noted Date [...] 137 mcg (0.1 %) nasal spray SMARTSI [place](s) Both Nares Twice Daily 4 Active multivit-min/fe rrous fumarate (MULTI VITAMIN ORAL) 0 Refills, Maintenance, 02/24/24 16:20:00 EDT, Partial fill upon patient request if the prescription is for a schedule II opioid drug. [address] (PROTONIX) 40 mg tablet Take 1 tablet (40 mg total) by mouth once a day. 90 tablet 3 4 05/16/20 25 Active Additional Information Patient taking differently:40 mg oral2 times daily, Reported on 12/03/2024 sucralfate (CARAFATE) 1 gram tablet Take 1 tablet (1 g total) by mouth 4 times a day. 120 tablet 4 Active amoxicillin-cla vulanate (AUGMENTIN) 400-57 mg chewable tablet Chew and swallow 800 mg by mouth 2 times a day. Active FLUoxetine (PROzac) 40 mg capsule Take 40 mg by mouth once a day. 4 Active Active Problems Problem Noted Date Diagnosed Date Postmenopausal bleeding 08/06/2024 Anxiety 05/07/2024 Diverticulitis 05/07/2024 Leiomyoma 05/07/2024 Papanicolaou smear of vagina with low grade squamous intraepithelial lesion (LGSIL) 05/07/2024 Greenfield's esophagus 05/07/2024 Abnormal findings on diagnostic imaging of breas t 05/07/2024 Severe obesity 11/11/2023 Greenfield's esophagus with high grade dysplasia Depression 06/16/2021 Bladder incontinence 03/24/2021 Chronic SI joint pain 07/24/2013 Immunizations Immunization Administration Dates Next Due Covid-19, Pfizer, mRNA, Ramsey valent, PF 30 mcg/0.3 mL dose (for ages 12 and older) 01/16/2021 Social History Tobacco Use Types Packs/Day Years [...] Description 03/04/2025 1:00 PM EDT Pre-Admission Testing [facility] [address] [place] [address] 3rd [place] [address] 03/18/2025 12:30 PM EDT Hospital Encounter [facility] [address] [place] [address] Sudheer Hayes MD [address] [place] [address] 03/18/2025 12:30 PM EDT - 03/18/2025 1:20 PM EDT Surgery [facility] [address] [place] [address] Sudheer Hayes MD [address] [place] [address] UPPER ENDOSCOPY; DIAGNOSTIC WITH BRUSH/WASH (SP) WITH POSSIBLE MODERATE SEDATION [96042 (CPT??)] Scheduled Procedures Name Priority Associated Diagnoses Date/Ti me UPPER ENDOSCOPY; DIAGNOSTIC WITH BRUSH/WASH (SP) WITH POSSIBLE MODERATE SEDATION History of Greenfield's esophagus 03/18/2025 12:30 PM EDT Procedures * Due to [place] [employer] law, this organization might not be sharing negative HIV tests. Procedure Name Priority Date/Time Associated Diagnosis Comments TISSUE EXAM Routine 12/03/2024 3:34 PM EST History of Greenfield's esophagus ME EGD ABLATE TUMOR POLYP/LESION W/DILATION& WIRE 12/03/2024 3:21 PM EST History of Greenfield's esophagus UPPER GI ENDOSCOPY 12/03/2024 TISSUE EXAM Routine 10/09/2024 2:21 PM EST Greenfield's esophagus with high grade dysplasia ME EGD DILATION GASTRIC/DUODENAL STRICTURE 10/09/2024 2:02 PM EST Greenfield's esophagus with high grade dysplasia Special Needs SHANNON no CPAP UPPER GI ENDOSCOPY 10/09/2024 COLONOSCOPY 12/01/2022 from Last 3 Months or Most Recently Relevant to Health Maintenance Results * Due to [place] [employer] law, this organization might not be sharing [...] within normal limits. - Negative for dysplasia. [facility] MANUAL 12/06/2024 12:02 PM EST [facility] Clinical History Pre-op diagnosis: 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] [facility] MANUAL 12/06/2024 12:02 PM EST [facility] Gross Description 1. [...] filtered and entirely submitted in cassette 5A. [facility] MANUAL 12/06/2024 12:02 PM EST [facility]ATOM[facility] PATHOLOGY LABORAT[facility] Gross Description User Grossing complete by Jax Koenig on 12/04/2024 11:04 AM [facility] MANUAL 12/06/2024 12:02 PM EST [facility] Embedded Images [facility] MANUAL 12/06/2024 12:02 PM EST [facility] Disclaimer Some of these tests were developed and their performance characteristics determined by the Immunoperoxidase/ Histology Laboratory of [facility]. They have not been cleared or approved [...] to perform high complexity clinical laboratory testing. [facility] MANUAL 12/06/2024 12:02 PM EST [facility] Resulting Agency Case was signed out at [facility], Department of Pathology, [facility] CLIA [id number] [facility] MANUAL 12/06/2024 12:02 PM EST [facility] Report Header Surgical Pathology Report ? Case: [id number] ? Authorizing Provider: ??Sudheer Hayes MD ? Collected: ? 12/03/2024 1534 ? Ordering Location: ? [facility] ? Received: ?12/04/2024 1033 ? [facility] ? Endoscopy ? Pathologist: ? Eliseo Reid, MD ? Specimens: ?? 1) - Esophagus, 34cm esophagus biopsy ? 2) - Esophagus, esophagus 32cm ? 3) - Esophagus, 30cm esophagus bx ? 4) - Esophagus, 28cm esophagus biopsy ? 5) - Esophagus, 26cm esophagus bx ? 12/06/2024 12:02 PM EST [facility] PATHOLOGY LABORAT[facility] Tissue Esophageal structure / [...] ORDERAB LES Final Result [facility] [address] [place] [address], [place] * UPPER GI ENDOSCOPY (12/03/2024) Narrative Procedure Note Sudheer Hayes MD - 12/03/2024 3:14 PM EST [facility] G[facility] Patient Name: Raymond Boucher Procedure Date: 12/03/2024 3:14 PM Date of : 1970 Admit Type: Outpatient Age: 53 Room: [place] [address] Gender: Female Note Status: Finalized Attending MD: [...] - Repeat upper endoscopy in 4 months forsurveillance. Attending Participation: I was present and participated during the entire procedure, including non-levy portions. Sudheer Hayes MD 12/03/2024 3:54:58 PM This report has been signed electronically. Number of Addenda: 0 Note Initiated On: 12/03/2024 3:14 PM us Sudheer Hayes MD PROVATION PROCEDURES Final Res ult * UPPER GI ENDOSCOPY (10/09/2024) Narrative Procedure Note Sudheer Hayes MD - 10/09/2024 1:57 PM EST [facility] Gastroenterology Patient Name: Raymond Boucher Procedure Date: 10/09/2024 1:57 PM Date of : 1970 Admit Type: Outpatient Age: 53 Room: [place] [address] Gender: Female Note Status: Finalized Attending MD: [...] by the physician, the nurse and the transfer specialist in the pre-procedure area in theendoscopy suite. [...] Hayes MD - 12/01/2022 11:28 AM EST [facility] End[facility] - [address] [place] [address] Patient Name: Raymond Boucher Procedure Date: 12/01/2022 11:28 AM Date of : 1970 Admit Type: Outpatient Age: 51 Room: [facility] 02 Gender: Female Note Status: Finalized Attending MD: Sudheer Hayes MD Procedure: Colonoscopy Indications: Screening for colorectal malignant neoplasm Providers: Sudheer Hayes MD Referring MD: Chan Roth MD (Referring MD), Gilbert Reno (Referring MD) Requesting Provider: Medicines: Monitored Anesthesia Care Complications: [...] Estimated Blood Loss: Estimated blood loss: none. us Sudheer Hayes MD PROVATION PROCEDURES Final Res ult from Last 3 Months or Most Recently Relevant to Health Maintenance Insurance [facility] Advance Directives Documents on File Type Date Recorded Patient Planner/Scheduler Expl anation Health Care Proxy 01/09/2020 10:59 [...] Boucher Son Health Care Agent Care Teams Rubber Turner Relationship Specialty Start Date End Date Chan Wilson [address] [place] [address] PCP - General Internal Medicine 01/09/20
--- OUTSIDE RECORDS SUMMARY | 2024-12-24 14:17 | XMS_ITS | Encounter Summary ---
Author Organization [facility] Address [address] [place] [address] Care Team Providers Care Rectification Printer Name Role Phone Siesta ShoresChan Jiménez Primary Care Provider [phone] Reason for Visit * Auth/Cert (Routine) Specialty Diagnoses / Procedures Referred By Leny middleton Referred To Contact Diagnoses History of Greenfield's esophagus 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] Procedures AK EGD ABLATE TUMOR POLYP/LESION W/DILATION& WIRE UPPER ENDOSCOPY WITH POSSIBLE DILATION AND ABLATION OF TUMOR(S) AND POSSIBLE MODERATE SEDATION Referral ID Status Reason Start Date Expiration Date Visits Re quested Visits Authorized [id number] 99 [phone] Encounter Details Date Type Department Care Team (Latest Contact Info) Description 12/03/2024 1:26 PM EST - 12/03/2024 4:35 PM [facility] Hospital Encounter [facility] [address], [place] [phone] Sudheer Hayes MD [address] [place], [place] [phone] History of Greenfield's esophagus Discharge Disposition: Home or Self Care () Social History Tobacco Use Types Packs/Day Years [...] 137 mcg (0.1 %) nasal spray SMARTSI [place](s) Both Nares Twice Daily 01/17/2024 diphenhydrAMINE (BENADRYL) [...] as of this encounter H&P Notes * Jaroslav Zivny, MD - 12/03/2024 1:53 PM EST H&P Update: I have reviewed the history and physical and performed a pertinent physical examination on Raymond Francis. No changes have occurred. Raymond Boucher : 1970 CSN: [id number] Source Note - CHARAN Asencio - 11/20/2024 2:06 PM EST PREOPERATIVE HISTORY AND PHYSICAL Pre-Surgical Telephone History Physical exam to be done day of surgery (please see completed physical exam at the bottom of this note) Procedure Summary Date: 12/03/24 Room / Location: [facility] GI AK / [facility] Endo Anesthesia Start: Anesthesia Stop: Procedure: UPPER [...] CLASSIC x1 COLONOSCOPY ESOPHAGOGASTRODUODENOSCOPY x3 LIPECTOMY panniculectomy AK COLSC FLX W/RMVL OF TUMOR POLYP LESION SNARE TQ N/A 12/01/2022 Procedure: COLONOSCOPY, FLEXIBLE; WITH REMOVAL OF TUMOR(S), POLYP(S), OR OTHER LESION(S) BY SNARE TECHNIQUE AND POSSIBLE MODERATE SEDATION; Surgeon: Sudheer Hayes MD; Location: [address] [place] [address]; Service: Gastroenterology AK EDG US EXAM SURGICAL ALTER STOM DUODENUM/JEJUNUM N/A 05/07/2020 Procedure: UPPER ENDOSCOPY WITH ENDOSCOPIC ULTRASOUND WITH POSSIBLE MODERATE SEDATION; Surgeon: Sudheer Hayes MD; Location: [facility]; Service: Gastroenterology AK EDG US EXAM SURGICAL ALTER STOM DUODENUM/JEJUNUM N/A 08/07/2020 Procedure: UPPER ENDOSCOPY WITH ENDOSCOPIC ULTRASOUND WITH POSSIBLE MODERATE SEDATION; Surgeon: Sudheer Hayes MD; Location: [facility]; Service: Gastroenterology AK EGD ABLATE TUMOR POLYP/LESION W/DILATION& WIRE N/A 11/07/2020 Procedure: UPPER ENDOSCOPY WITH POSSIBLE DILATION AND ABLATION OF TUMOR(S) AND POSSIBLE MODERATE SEDATION; Surgeon: Sudheer Hayes MD; Location: [facility]; Service: Gastroenterology AK EGD ABLATE TUMOR POLYP/LESION W/DILATION& WIRE N/A 12/02/2020 Procedure: UPPER ENDOSCOPY WITH POSSIBLE DILATION AND ABLATION OF TUMOR(S) AND POSSIBLE MODERATE SEDATION; Surgeon: Sudheer Hayes MD; Location: [facility]; Service: Gastroenterology AK EGD ABLATE TUMOR POLYP/LESION W/DILATION& WIRE N/A 02/03/2021 Procedure: UPPER ENDOSCOPY WITH POSSIBLE DILATION AND ABLATION OF TUMOR(S) AND POSSIBLE MODERATE SEDATION; Surgeon: Sudheer Hayes MD; Location: [facility] OR; Service: Gastroenterology AK EGD ABLATE TUMOR POLYP/LESION W/DILATION& WIRE N/A 05/19/2021 Procedure: UPPER ENDOSCOPY WITH POSSIBLE DILATION AND ABLATION OF TUMOR(S) AND POSSIBLE MODERATE SEDATION; Surgeon: Sudheer Hayes MD; Location: [facility] Endo; Service: Gastroenterology AK EGD ABLATE TUMOR POLYP/LESION W/DILATION& WIRE Left 08/17/2021 Procedure: UPPER ENDOSCOPY WITH POSSIBLE DILATION AND ABLATION OF TUMOR(S) AND POSSIBLE MODERATE SEDATION; Surgeon: Sudheer Hayes MD; Location: [facility] Endo; Service: Gastroenterology AK EGD ABLATE TUMOR POLYP/LESION W/DILATION& WIRE N/A 05/21/2024 Procedure: UPPER ENDOSCOPY WITH POSSIBLE DILATION AND ABLATION OF TUMOR(S) AND POSSIBLE MODERATE SEDATION; Surgeon: Sudheer Hayes MD; Location: [facility] Endo; Service: Gastroenterology AK EGD DILATION GASTRIC/DUODENAL STRICTURE N/A 09/18/2024 Procedure: UPPER ENDOSCOPY WITH DILATION OF GASTRIC DUODENAL STRICTURE(S) WITH POSSIBLE MODERATE SEDATION; Surgeon: Sudheer Hayes MD; Location: [facility] OR; Service: Gastroenterology AK EGD DILATION GASTRIC/DUODENAL STRICTURE N/A 10/09/2024 Procedure: UPPER ENDOSCOPY WITH DILATION OF GASTRIC DUODENAL STRICTURE(S) WITH POSSIBLE MODERATE SEDATION; Surgeon: Sudheer Hayes MD; Location: [facility] Endo; Service: Gastroenterology AK EGD TRANSORAL BIOPSY SINGLE/MULTIPLE N/A 11/18/2021 Procedure: UPPER ENDOSCOPY WITH POSSIBLE BIOPSY AND/OR POLYPECTOMY AND POSSIBLE MODERATE SEDATION; Surgeon: Sudheer Hayes MD; Location: [address] [place] [address] Endo; Service: Gastroenterology AK EGD TRANSORAL BIOPSY SINGLE/MULTIPLE N/A 12/01/2022 Procedure: UPPER ENDOSCOPY WITH POSSIBLE BIOPSY AND/OR POLYPECTOMY AND POSSIBLE MODERATE SEDATION; Surgeon: Sudheer Hayes MD; Location: [address] [place] [address]; Service: Gastroenterology AK EGD TRANSORAL BIOPSY SINGLE/MULTIPLE N/A 05/11/2023 Procedure: UPPER ENDOSCOPY WITH POSSIBLE BIOPSY AND/OR POLYPECTOMY AND POSSIBLE MODERATE SEDATION; Surgeon: Sudheer Hayes MD; Location: [address] [place] [address]; Service: Gastroenterology AK ESOPHAGOGASTRODUODENOSCOPY TRANSORAL DIAGNOSTIC N/A 11/22/2023 Procedure: UPPER ENDOSCOPY; DIAGNOSTIC WITH BRUSH/WASH (SP) WITH POSSIBLE MODERATE SEDATION; Surgeon: Sudheer Hayes MD; Location: [facility]; Service: Gastroenterology AK ESOPHAGOGASTRODUODENOSCOPY TRANSORAL DIAGNOSTIC N/A 02/13/2024 Procedure: UPPER ENDOSCOPY; DIAGNOSTIC WITH BRUSH/WASH (SP) WITH POSSIBLE MODERATE SEDATION; Surgeon: Sudheer Hayes MD; Location: [facility]; Service: Gastroenterology AK ESOPHAGOGASTRODUODENOSCOPY TRANSORAL DIAGNOSTIC N/A 08/20/2024 Procedure: UPPER ENDOSCOPY; DIAGNOSTIC WITH BRUSH/WASH (SP) WITH POSSIBLE MODERATE SEDATION; Surgeon: Sudheer Hayes MD; Location: [facility]; Service: Gastroenterology ROOT CANAL ROTATOR CUFF REPAIR 2018 TUBAL LIGATION tubal procedure for sterilization WISDOM TOOTH EXTRACTION MEDICATIONS: Current Medications as of 11/20/2024 acetaminophen (Tylenol Arthritis Pain) 650 mg 8 hr tablet Take 650 mg by mouth every 8 hours as needed for pain. azelastine (ASTELIN) 137 mcg (0.1 %) nasal spray SMARTSI [place](s) Both Nares Twice Daily diphenhydrAMINE (BENADRYL) 25 mg capsule Take 25 mg by mouth nightly as needed (Allergy symptoms). fluticasone propionate (FLONASE) 50 mcg/actuation nasal spray SMARTSI [place](s) Both Nares Daily LORazepam (ATIVAN) 1 mg [...] ECG NO PREVIOUS ECGS AVAILABLE Confirmed by Dwayne West (64) on 08/12/2023 10:08:19 AM Other [...] loss - Blood Products: patient has no uatsdin or cultural beliefs that would prevent blood/blood product transfusion VISIT DIAGNOSIS: 1. History of Greenfield's esophagus 2. Pre-op evaluation PSE ORDERS: No orders of the defined types were placed in this encounter. Assessment/Plan: 53 y.o. female who was interviewed via telephone today prior to Procedure(s): UPPER ENDOSCOPY WITH POSSIBLE DILATION AND ABLATION OF TUMOR(S) AND POSSIBLE MODERATE SEDATION on 12/03/2024. 1. Kerryiram Boucher was phone screened for the above procedure. This form serves as the history portion of the patient's H&P. The patient will be evaluated by anesthesia and their surgeon on the day of surgery. Vital signs will be obtained in the SACU on the day of surgery. A physical exam willbe obtained on the day of surgery by a pre-testing SYSTEM ARCHITECT/PA or the surgeon/designee. The physical exam portion [...] HCG 5. Anticoagulation/Aspirin Plan: N/A 6. Cardiac: Software Client Architect: no history of cardiac problems Last visit: N/A Outstanding Cardiac Issues: None 7. Pulmonary: Archery Equipment Repairer: no history of pulmonary problems Last visit: N/A Outstanding Pulmonary Issues: None 8. Pending Items: -DOS HCG Diane Cooper PA-C Pre-Surgical Evaluation Department of Anesthesiology [facility] ----- documented in this encounter Procedure Notes * Sudheer Hayes MD - 12/03/2024 3:14 PM ESTAssociated Order(s): UPPER GI ENDOSCOPY [facility] Gastroenterology Patient Name: Raymond Boucher Procedure Date: 12/03/2024 3:14 PM Date of : 1970 Admit Type: Outpatient Age: 53 Room: [place] [address] Gender: Female Note Status: Finalized Attending MD: [...] Description 03/04/2025 1:00 PM EDT Pre-Admission Testing [facility] [address] [place] [address] 03/18/2025 12:30 PM EDT Hospital Encounter [facility] Endoscopy [address] [place] [address] Sudheer Hayes MD [address] [place] [address] 03/18/2025 12:30 PM EDT - 03/18/2025 1:20 PM EDT Surgery [facility]oscopy [address] [place] [address] Sudheer Hayes MD [address] [place] [id number] UPPER ENDOSCOPY; DIAGNOSTIC WITH BRUSH/WASH (SP) WITH POSSIBLE MODERATE SEDATION [03479 (CPT??)] Scheduled Procedures Name Priority Associated Diagnoses Date/Ti me UPPER ENDOSCOPY; DIAGNOSTIC WITH BRUSH/WASH (SP) WITH POSSIBLE MODERATE SEDATION History of Greenfield's esophagus 03/18/2025 12:30 PM EDT documented as of this encounter Procedures * Due to [place] [employer] law, this organization might not be sharing negative HIV tests. Procedure Name Priority Date/Time Associated Diagnosis Comments TISSUE EXAM Routine 12/03/2024 3:34 PM EST History of Greenfield's esophagus AK EGD ABLATE TUMOR POLYP/LESION W/DILATION& WIRE 12/03/2024 3:21 PM EST History of Greenfield's esophagus UPPER GI ENDOSCOPY 12/03/2024 documented in this encounter Results * Due to [place] [employer] law, this organization might not be sharing [...] dysplasia. [facility]UAL 12/06/2024 12:02 PM EST [facility] Clinical History Pre-op diagnosis: 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] [facility] MANUAL 12/06/2024 12:02 PM EST [facility] Gross Description 1. [...] and entirely submitted in cassette 5A. [facility] MANUAL 12/06/2024 12:02 PM EST [facility] Gross Description User Grossing complete by Jax Koenig on 12/04/2024 11:04 AM [facility] MANUAL 12/06/2024 12:02 PM EST [facility] Embedded Images [facility] MANUAL 12/06/2024 12:02 PM EST [facility] Disclaimer Some of these tests were developed and their performance characteristics determined by the Immunoperoxidase/ Histology Laboratory of [facility]. They have not been cleared or [...] perform high complexity clinical laboratory testing. [facility] MANUAL 12/06/2024 12:02 PM EST [facility] Resulting Agency Case was signed out at [facility], Department of Pathology, [facility] CLIA [id number] [facility] MANUAL 12/06/2024 12:02 PM EST [facility] Report Header Surgical Pathology Report ? Case: [id number] ? Authorizing Provider: ??Sudheer Hayes MD ? Collected: ? 12/03/2024 1534 ? Ordering Location: ? [facility] ? Received: ?12/04/2024 1033 ? [facility] ? Endoscopy ? Pathologist: ? Eliseo Reid [...] ORDERAB LES Final Result [facility] LABORATORY [address] [place] [address], * UPPER GI ENDOSCOPY (12/03/2024) Narrative Procedure Note Sudheer Hayes MD - 12/03/2024 3:14 PM EST [facility] Gastroenterology Patient Name: Raymond Boucher Procedure Date: 12/03/2024 3:14 PM Date of : 1970 Admit Type: Outpatient Age: 53 Room: [facility] 06 Gender: Female Note Status: Finalized Attending [...] Respiratory Distress or Over Sedation, Starting on 12/03/24 at 1615, 3 doses, Until Tue12/03/24 at [...] mg/mL. documented in this encounter Care Teams Rectification Printer Relationship Specialty Start Date End Date Chan Wilson [address] [place] [address] PCP - General Internal Medicine 01/09/20 documented as of this encounter
== END 2024-12-24 13:29 | disposition home or self-care (01) ==
LOC: HO.HGI 12:36
PROVIDERS: PCP Internal Medicine; Visit Provider Internal Medicine Gastroenterology
DX: K31.84 Gastroparesis (principal)
CPT/HCPCS: 99213

== ENCOUNTER → 2024-12-24 12:36 | Outpatient (BNVA) | payer OTHER, SELFPAY | PROVIDERS: PCP Internal Medicine; Visit Provider Internal Medicine Gastroenterology ==

== ENCOUNTER 2025-03-08 11:27 | Outpatient (AMB) | payer OTHER, SELFPAY ==
--- NOTE | 2025-03-08 11:40 | MHC.OFFWIV ---
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 she also would like to discuss her raspy throat. 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 Reports this started after doing a lot of walking at work on Tuesday. Denies any injury however. She has taken Tylenol with minimal relief. 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 Also has had some coughing fits. No shortness of breath or productive cough. No recent illness. [facility] Medical History Arthritis Surgical History History of cryosurgery Hx of bilateral breast reduction surgery Hx of repair of left rotator cuff Hx of section Hx of laparoscopic gastric banding History of esophagogastroduodenoscopy (EGD) H/O colonoscopy Social History Patient Tobacco Use Status: Never used Tobacco Second Hand Smoke Exposure: Yes Review of Systems Const All systems reviewed & are unremarkable except as noted in HPI and below Physical Exam Vital Signs: Last Vital Signs Pulse 76 03/08/25 11:48 BP 126/80 03/08/25 11:48 Pulse Ox 98 03/08/25 11:48 Oxygen Delivery Method Room Air 03/08/25 11:48 Const General: cooperative, healthy appearing and no acute distress HEENT Head: Yes normal to inspection Ears: hearing grossly normal bilaterally General nose exam: Normal external nose present Face and sinus: Yes normal facial exam Mouth: Normal oral and palatal mucosa present Resp Effort & Inspection: normal respiratory effort Auscultation: clear to auscultation bilaterally Cardio Rate: regular rate Rhythm: regular rhythm Skin General skin exam: no rashes or lesions noted Extrem Other: left lateral ankle with mild swelling and tenderness to palp. Normal ankle ROM. No erythema or excessive warmth. Normal cap refill. No edema. No joint enlargement. Ankle/foot/toe images: 1. swelling Psych Appearance: grossly normal Mental Status: mental status grossly normal Speech and movement: Normal speech and movement present Assessment & Plan Assessment & Plan (1) Pain and swelling of left ankle: Code(s): M25.572 - Pain in left ankle and joints of left foot; M25.472 - Effusion, left ankle Plan: Patient leaves on a cruise tomorrow and is afraid her ankle will worsen with all of the activity. She has Tylenol at home. Cannot take NSAIDs. I will start her on a short course of prednisone, which she has done well on in the past. We reviewed indications, use, possible side effects of medication. I wrapped ankle with an CHRISTINE wrap and educated her on doing so at home. Advised ice application and elevation as well. As for cough, LS are clear, advised lozenges, hydration as needed. Coding Level of Care Code Est Pt Level 4 (70530) Diagnoses Pain and swelling of left ankle M25.572; M25.472
[2025-03-08 11:48] VITALS: BP 126/80; PULSE 76; O2SAT 98
--- OUTSIDE RECORDS SUMMARY | 2025-03-08 11:57 | XMS_ITS | Encounter Summary ---
Author Organization [facility] Address [address] [place] [address] Care Team Providers Care Sourcing Intern Name Role Phone Chan Wilson Primary Care Provider Encounter Details Date Type Department Care Team (Late st Contact Info) Description 09/08/2024 [employer] Message Intial Department [address] [place] [address] [employer], Generic Provider [address] [place], [place] [id number] Questionnaire Submission Social History Tobacco Use Types [...] Department Care Team (Latest Contact Info) Description 03/18/2025 9:30 AM EDT Hospital Encounter [facility] Endoscopy [address] [place] [address] Sudheer Hayes MD [address] [place] [address] 03/18/2025 9:30 AM EDT Anesthesia Event [facility] Endoscopy [address] [place] [address] Angelica Miner DO 55 [facility] [place] [address] 03/18/2025 9:30 AM EDT - 03/18/2025 10:20 AM EDT Surgery [facility] Endoscopy [address] [place] [address] Sudheer Hayes MD [address] [place], [place] [phone] UPPER ENDOSCOPY; DIAGNOSTIC WITH BRUSH/WASH (SP) WITH POSSIBLE MODERATE SEDATION [33467 (CPT??)] Scheduled Procedures Name Priority Associated Diagnoses Date/Ti me UPPER ENDOSCOPY; DIAGNOSTIC WITH BRUSH/WASH (SP) WITH POSSIBLE MODERATE SEDATION History of Greenfield's esophagus 03/18/2025 9:30 AM EDT documented as of this encounter Visit Diagnoses Not on filedocumented in this encounter Care Teams Sourcing Intern Relationship Specialty Start Date End Date Chan Wilson [address] [place] [address] PCP - General Internal Medicine 01/09/20 documented as of this encounter
--- OUTSIDE RECORDS SUMMARY | 2025-03-08 11:57 | XMS_ITS | Encounter Summary ---
Author Organization [facility] Address [address] [place] [address] Care Team Providers Care Automation Mechanic Name Role Phone CoopertownChan shah Jane Primary Care Provider [phone] Encounter Details Date Type Department Care Team (Late st Contact Info) Description 06/26/2021 Orders Only [facility] Interventional Radiology [address] [place] [address] Jovana Sullivan MD [address] [place] [address] Social History Tobacco Use Types Packs/Day Years [...] Description 03/18/2025 9:30 AM EDT Hospital Encounter [facility] Endoscopy [address] [place] [address] Sudheer Hayes MD [address] [place] [address] 03/18/2025 9:30 AM EDT Anesthesia Event [facility] Endoscopy [address] [place] [address] Angelica Miner DO 55 [facility] [place] [address] 03/18/2025 9:30 AM EDT - 03/18/2025 10:20 AM EDT Surgery [facility] Endoscopy [address] [place] [address] Sudheer Hayes MD [address] [place] [address] UPPER ENDOSCOPY; DIAGNOSTIC WITH BRUSH/WASH (SP) WITH POSSIBLE MODERATE SEDATION [27090 (CPT??)] Scheduled Procedures Name Priority Associated Diagnoses Date/Ti me UPPER ENDOSCOPY; DIAGNOSTIC WITH BRUSH/WASH (SP) WITH POSSIBLE MODERATE SEDATION History of Greenfield's esophagus 03/18/2025 9:30 AM EDT documented as of this encounter Visit Diagnoses Not on filedocumented in this encounter Care Teams Automation Mechanic Relationship Specialty Start Date End Date Chan Wilson [address] [place] [address] PCP - General Internal Medicine 01/09/20 documented as of this encounter
--- OUTSIDE RECORDS SUMMARY | 2025-03-08 11:57 | XMS_ITS | Encounter Summary ---
Author Organization [facility] Address [address] [place] [address] Care Team Providers Care Semiconductors Wafer Breaker Name Role Phone Chan Wilson Primary Care Provider [phone] Encounter Details Date Type Department Care Team (Late st Contact Info) Description 11/02/2022 [employer] Message [facility] HB Revenue Cycle Management [address] [place] [address] [employer], Generic Provider [address] [phone] Payment Plan Social History Tobacco Use Types [...] Description 03/18/2025 9:30 AM EDT Hospital Encounter [facility]- [facility] Endoscopy [address] [place] [address] Sudheer Hayes MD [address] [place], [place] [phone] 03/18/2025 9:30 AM EDT Anesthesia Event [facility] Endoscopy [address] [place] [address] Angelica Miner DO 55 [facility] [place] [address] 03/18/2025 9:30 AM EDT - 03/18/2025 10:20 AM EDT Surgery [facility] Endoscopy [address] [place] [address] Sudheer Hayes MD [address] [place] [address] UPPER ENDOSCOPY; DIAGNOSTIC WITH BRUSH/WASH (SP) WITH POSSIBLE MODERATE SEDATION [58498 (CPT??)] Scheduled Procedures Name Priority Associated Diagnoses Date/Ti me UPPER ENDOSCOPY; DIAGNOSTIC WITH BRUSH/WASH (SP) WITH POSSIBLE MODERATE SEDATION History of Greenfield's esophagus 03/18/2025 9:30 AM EDT documented as of this encounter Visit Diagnoses Not on filedocumented in this encounter Care Teams Semiconductors Wafer Breaker Relationship Specialty Start Date End Date Chan Wilson [address] [place] [address] PCP - General Internal Medicine 01/09/20 documented as of this encounter
--- OUTSIDE RECORDS SUMMARY | 2025-03-08 11:57 | XMS_ITS | Encounter Summary ---
Author Organization [facility] Address [address] [place] [address] Care Team Providers Care Over [employer] Targeting Supervisor Name Role Phone Chan Wilson Primary Care Provider [phone] Encounter Details Date Type Department Care Team (Late st Contact Info) Description 12/19/2024 [employer] Message [facility] HB Revenue Cycle Management [address] [place] [address] [employer], Generic Provider [address] [phone] payment plan Social History Tobacco Use Types [...] Description 03/18/2025 9:30 AM EDT Hospital Encounter [facility]- [facility] Endoscopy [address] [place] [address] Sudheer Hayes MD 55 [place], [place] [phone] 03/18/2025 9:30 AM EDT Anesthesia Event [facility] Endoscopy [address] [place] [address] Angelica Miner DO 55 [facility] [place] [address] 03/18/2025 9:30 AM EDT - 03/18/2025 10:20 AM EDT Surgery [facility] Endoscopy [address] [place] [address] Sudheer Hayes MD [address] [place], [place] [phone] UPPER ENDOSCOPY; DIAGNOSTIC WITH BRUSH/WASH (SP) WITH POSSIBLE MODERATE SEDATION [83928 (CPT??)] Scheduled Procedures Name Priority Associated Diagnoses Date/Ti me UPPER ENDOSCOPY; DIAGNOSTIC WITH BRUSH/WASH (SP) WITH POSSIBLE MODERATE SEDATION History of Greenfield's esophagus 03/18/2025 9:30 AM EDT documented as of this encounter Visit Diagnoses Not on filedocumented in this encounter Care Teams [employer] Targeting Supervisor Relationship Specialty Start Date End Date Chan Wilson [address] [place] [address] PCP - General Internal Medicine 01/09/20 documented as of this encounter
--- OUTSIDE RECORDS SUMMARY | 2025-03-08 11:57 | XMS_ITS | Encounter Summary ---
Author Organization [facility] Address [address] [place] [address] Care Team Providers Care Sheet Metal Helper Name Role Phone Chan Wilson Primary Care Provider [phone] Encounter Details Date Type Department Care Team (Late st Contact Info) Description 09/20/2024 [employer] Message [facility] HB Revenue Cycle Management [address] [place] [address] [employer], Generic Provider [address] [phone] payment plan Social History Tobacco Use Types [...] Description 03/18/2025 9:30 AM EDT Hospital Encounter [facility]- [facility] Endoscopy [address] [place] [address] Sudheer Hayes MD [address] [place], [place] [phone] 03/18/2025 9:30 AM EDT Anesthesia Event [facility] Endoscopy [address] [place] [address] Angelica Miner DO 55 [facility] [place] [address] 03/18/2025 9:30 AM EDT - 03/18/2025 10:20 AM EDT Surgery [facility] Endoscopy [address] [place] [address] Sudheer Hayes MD [address] [place], [place] [phone] UPPER ENDOSCOPY; DIAGNOSTIC WITH BRUSH/WASH (SP) WITH POSSIBLE MODERATE SEDATION [25121 (CPT??)] Scheduled Procedures Name Priority Associated Diagnoses Date/Ti me UPPER ENDOSCOPY; DIAGNOSTIC WITH BRUSH/WASH (SP) WITH POSSIBLE MODERATE SEDATION History of Greenfield's esophagus 03/18/2025 9:30 AM EDT documented as of this encounter Visit Diagnoses Not on filedocumented in this encounter Care Teams Sheet Metal Helper Relationship Specialty Start Date End Date Chan Wilson [address] [place] [address] PCP - General Internal Medicine 01/09/20 documented as of this encounter
--- OUTSIDE RECORDS SUMMARY | 2025-03-08 11:57 | XMS_ITS | Encounter Summary ---
Author Organization [facility] Address [address] [place] [address] Care Team Providers Care It Associate Name Role Phone Chan Wilson Primary Care Provider [phone] Encounter Details Date Type Department Care Team (Late st Contact Info) Description 06/26/2021 Orders Only [facility] Interventional Radiology [address] [place] [address] Kirill Schuster MD [address] [place] [phone] Social History Tobacco Use Types Packs/Day Years [...] Description 03/18/2025 9:30 AM EDT Hospital Encounter [facility] Endoscopy [address] [place] [address] Sudheer Hayes MD [address] [place] [address] 03/18/2025 9:30 AM EDT Anesthesia Event [facility] Endoscopy [address] [place] [address] Angelica Miner DO 55 [facility] [place] [address] 03/18/2025 9:30 AM EDT - 03/18/2025 10:20 AM EDT Surgery [facility] Endoscopy [address] [place] [address] Sudheer Hayes MD [address] [place] [address] UPPER ENDOSCOPY; DIAGNOSTIC WITH BRUSH/WASH (SP) WITH POSSIBLE MODERATE SEDATION [08616 (CPT??)] Scheduled Procedures Name Priority Associated Diagnoses Date/Ti me UPPER ENDOSCOPY; DIAGNOSTIC WITH BRUSH/WASH (SP) WITH POSSIBLE MODERATE SEDATION History of Greenfield's esophagus 03/18/2025 9:30 AM EDT documented as of this encounter Visit Diagnoses Not on filedocumented in this encounter Care Teams It Associate Relationship Specialty Start Date End Date Chan Wilson [address] [place] [phone] PCP - General Internal Medicine 01/09/20 documented as of this encounter
--- OUTSIDE RECORDS SUMMARY | 2025-03-08 11:57 | XMS_ITS | Clinical Summary ---
Author Organization [facility] Address [address] [place] [address] Care Team Providers Care Marshmallow Runner Name Role Phone Chan Wilson Primary Care Provider [phone] Allergies Active Allergy Reactions Criticality Noted Date [...] 137 mcg (0.1 %) nasal spray SMARTSI Loring(s) Both Nares Twice Daily 4 Active multivit-min/fe [...] Encounters Date Type Department Care Team Description 03/04/2025 1:00 PM EDT Pre-Admission Testing [facility] [address] [place] [address] Viola San NP Pre-op evaluation (Primary Dx); History of Greenfield's esophagus 01/28/2025 Prep for Case [facility] [address] [place] [address] Hairspring Truer: Sudheer Linda MD 12/19/2024 myChart Message [facility] HB Revenue Cycle Management [address] [place] [address] Mychart, Generic Provider payment plan 12/13/2024 Results Follow-Up [facility] [address] [place] [id number] Hairspring Truer: Sudheer Linda MD from Last 3 Months Immunizations Immunization Administration Dates Next Due Covid-19, Pfizer, mRNA, [place] valent, PF 30 mcg/0.3 mL dose (for [...] Description 03/18/2025 9:30 AM EDT Hospital Encounter [facility] Endoscopy [address] [place] [address] Sudheer Hayes MD [address] [place] [address] 03/18/2025 9:30 AM EDT Anesthesia Event [facility] Endoscopy [address] [place] [address] Angelica Miner DO 55 [facility] [place] [address] 03/18/2025 9:30 AM EDT - 03/18/2025 10:20 AM EDT Surgery [facility] Endoscopy [address] [place] [address] Sudheer Hayes MD [address] [place] [address] UPPER ENDOSCOPY; DIAGNOSTIC WITH BRUSH/WASH (SP) WITH POSSIBLE MODERATE SEDATION [30435 (CPT??)] Scheduled Procedures Name Priority Associated Diagnoses Date/Ti me UPPER ENDOSCOPY; DIAGNOSTIC WITH BRUSH/WASH (SP) WITH POSSIBLE MODERATE SEDATION History of Greenfield's esophagus 03/18/2025 9:30 AM EDT Health Maintenance Due Date Last Done [...] 02/06/2021, 01/16/2021 Alcohol/Substance Use Screening 10/31/2024 Depression Screening and Follow-Up 10/31/2024 Social Drivers of Health Bree ual Screening 10/31/2024 Colonoscopy 12/01/2027 12/01/2022, 12/01/2022 RSV Vaccine (60+ years old a nd patients) (1 - 1-dose 75+ series) 2044 Influenza Vaccine Completed 10/05/2024, , 08/20/2021, Additional history exists Goals Goal Patient Goal Type Associated Problems Recent Progress Patient-Stated? Author Autogenera vamshi Goal Care Plan Autogenerated Problem No [employer] Background User Procedures * Due to [facility] law, this organization might not be sharing negative HIV tests. Procedure Name Priority Date/Time Associated Diagnosis Comments COLONOSCOPY 12/01/2022 from Last 3 Months or Most Recently Relevant to Health Maintenance Results * Due to [facility] law, this organization might not be sharing negative HIV tests. * COLONOSCOPY (12/01/2022) Narrative Procedure Note Sudheer Hayes MD - 12/01/2022 11:28 AM EST [facility] Endoscopy - [address] [place] [address] Endoscopy [place] Patient Name: Raymond Boucher Procedure Date: 12/01/2022 11:28 AM Date of : 1970 Admit Type: Outpatient Age: 51 Room: [facility] 02 Gender: Female Note Status: Finalized Attending [...] or Most Recently Relevant to Health Maintenance Additional Health Concerns Active Problems Noted Date Diagnosed Date Autogenerated Problem 03/08/2025 Insurance [facility] Advance Directives Documents on File Type Date Recorded Patient Bariatric Coordinator Expl anation Health Care Proxy 01/09/2020 10:59 AM Demetria Boucher * Presumed Full Code (Latest Code Status on File) Date Activated Date Inactivated Comments 11/18/2021 8:52 AM 11/18/2021 12:34 PM * Presumed Full Code Date Activated Date Inactivated Comments 08/07/2020 8:55 AM 08/07/2020 12:26 PM Healthcare Agents on File Name Relationship Healthcare Agent Relationshi p Communication Dvon [facility] Agent Care Teams Marshmallow Runner Relationship Specialty Start Date End Date Chan Wilson [address] [place] [address] PCP - General Internal Medicine 01/09/20
--- OUTSIDE RECORDS SUMMARY | 2025-03-08 11:57 | XMS_ITS | Encounter Summary ---
Author Organization [facility] Address [address] [place] [address] Care Team Providers Care Bleaching Machine Operator Name Role Phone Chan Wilson Primary Care Provider [phone] Encounter Details Date Type Department Care Team (Late st Contact Info) Description 09/16/2023 [employer] Message [facility] HB Revenue Cycle Management [address] [place] [address] [employer], Generic Provider [address] [phone] pay plan Social History Tobacco Use Types [...] 03/18/2025 9:30 AM EDT Hospital Encounter [facility]- [facility] Endoscopy [address] [place] [address] Sudheer Hayes MD [address] [place], [place] [phone] 03/18/2025 9:30 AM EDT Anesthesia Event [facility] Endoscopy [address] [place] [address] Angelica Miner DO 55 [facility] [place] [address] 03/18/2025 9:30 AM EDT - 03/18/2025 10:20 AM EDT Surgery [facility] Endoscopy [address] [place] [address] Sudheer Hayes MD [address] [place], [place] [phone] UPPER ENDOSCOPY; DIAGNOSTIC WITH BRUSH/WASH (SP) WITH POSSIBLE MODERATE SEDATION [70411 (CPT??)] Scheduled Procedures Name Priority Associated Diagnoses Date/Ti me UPPER ENDOSCOPY; DIAGNOSTIC WITH BRUSH/WASH (SP) WITH POSSIBLE MODERATE SEDATION History of Greenfield's esophagus 03/18/2025 9:30 AM EDT documented as of this encounter Visit Diagnoses Not on filedocumented in this encounter Care Teams Bleaching Machine Operator Relationship Specialty Start Date End Date Chan Wilson [address] [place] [address] PCP - General Internal Medicine 01/09/20 documented as of this encounter
--- OUTSIDE RECORDS SUMMARY | 2025-03-08 11:57 | XMS_ITS | Encounter Summary ---
Author Organization [facility] Address [address] [place] [address] Care Team Providers Care Collection Officer Name Role Phone OyehutChan shah Jane Primary Care Provider [phone] Encounter Details Date Type Department Care Team (Latest Contact Info) Description 03/04/2025 1:00 PM EDT Pre-Admission Testing [facility] [address] [place] [address] [address] [place], [place] [phone] Viola San, JEFF [address] [place] [address] [phone] Pre-op evaluation (Primary Dx); History of Greenfield's esophagus Anesthesia Record Procedure Summary Procedure Name Responsible Anesthesiologist Anesthesia Start Time Anesthesia Stop Time UPPER ENDOSCOPY; DIAGNOSTIC WITH BRUSH/WASH (SP) WITH POSSIBLE MODERATE SEDATION Events No events on file. Meds * Agents No agents on file. * Blood No blood administrations on file. Lines, Drains, and Airways No LDAs on file. documented in this encounter Social History Tobacco [...] AM EDT documented as of this encounter H&P Notes * Viola San NP - 03/04/2025 12:37 PM EDT PREOPERATIVE HISTORY AND PHYSICAL Pre-Surgical Telephone History Physical exam to be done day of surgery (please see completed physical exam at the bottom of this note) Procedure Summary Procedure Summary Date: 03/18/25 Room / Location: [facility] Anesthesia Start: Anesthesia Stop: Procedure: UPPER ENDOSCOPY; DIAGNOSTIC WITH BRUSH/WASH (SP) WITH POSSIBLE MODERATE SEDATION Diagnosis: History of Greenfield's esophagus (Repeat upper endoscopy in 4 months for surveillance.) Surgeons: Sudheer Hayes MD Responsible Provider: Anesthesia Type: Not recorded ASA Status: Not recorded Laterality: NA Anesthesia Type from Case: Monitor Anesthesia Care The patient was identified using 2 identifiers (name and ). Chief Complaint: I am having a procedure and would like to know how to prepare. HISTORY OF PRESENT ILLNESS: Raymond Boucher is a 54 y.o. female with a past medical history including PONV, SHANNON (no cpap), anxiety, depression, IBS, GERD, and Greenfield's esophagus with high grade dysplasia. Last EGD on 12/03/24 with evidence of Greenfield's with biopsies taken, negative for dysplasia. Recommended to return in 3 months for surveillance. She is called for her PSE apt. At this time, other than the above, there are no other complaints or concerns. PAST MEDICAL HISTORY: Past Medical History: Diagnosis Date Anxiety Arthritis Asthma Greenfield's esophagus with high grade dysplasia Bladder incontinence 03/24/2021 Colon polyp tubular adenoma COVID-19 10/19/2023 received paxlovid; fully recovered but sense of smell and taste have not returned Depression Dermatitis dry skin Diverticulosis recent flare treated 10/01/2023 Gastroparesis GERD (gastroesophageal reflux disease) pt still has heartburn symptoms 3-4x a week even with taking pantoprazole H. pylori infection s/p treatment Hiatal hernia Irritable bowel syndrome Leiomyoma 05/07/2024 SHANNON (obstructive sleep apnea) borderline after bariatric surgery, no longer uses CPAP PONV (postoperative nausea and vomiting) Severe obesity 11/11/2023 PAST SURGICAL HISTORY: Past Surgical History: Procedure Laterality Date BARIATRIC SURGERY lap band, 2007, redo 2016, THEN REMOVAL 2019 BREAST REDUCTION 2007 SECTION, CLASSIC x1 COLONOSCOPY ESOPHAGOGASTRODUODENOSCOPY x3 LIPECTOMY panniculectomy OR COLSC FLX W/RMVL OF TUMOR POLYP LESION SNARE TQ N/A 12/01/2022 Procedure: COLONOSCOPY, FLEXIBLE; WITH REMOVAL OF TUMOR(S), POLYP(S), OR OTHER LESION(S) BY SNARE TECHNIQUE AND POSSIBLE MODERATE SEDATION; Surgeon: Sudheer Hayes MD; Location[facility]; Service: Gastroenterology OR EDG US EXAM SURGICAL ALTER STOM DUODENUM/JEJUNUM N/A 05/07/2020 Procedure: UPPER ENDOSCOPY WITH ENDOSCOPIC ULTRASOUND WITH POSSIBLE MODERATE SEDATION; Surgeon: Sudheer Hayes MD; Location: [facility]; Service: Gastroenterology OR EDG US EXAM SURGICAL ALTER STOM DUODENUM/JEJUNUM N/A 08/07/2020 Procedure: UPPER ENDOSCOPY WITH ENDOSCOPIC ULTRASOUND WITH POSSIBLE MODERATE SEDATION; Surgeon: Sudheer Hayes MD; Location: [facility]; Service: Gastroenterology OR EGD ABLATE TUMOR POLYP/LESION W/DILATION& WIRE N/A 11/07/2020 Procedure: UPPER ENDOSCOPY WITH POSSIBLE DILATION AND ABLATION OF TUMOR(S) AND POSSIBLE MODERATE SEDATION; Surgeon: Sudheer Hayes MD; Location: [facility]; Service: Gastroenterology OR EGD ABLATE TUMOR POLYP/LESION W/DILATION& WIRE N/A 12/02/2020 Procedure: UPPER ENDOSCOPY WITH POSSIBLE DILATION AND ABLATION OF TUMOR(S) AND POSSIBLE MODERATE SEDATION; Surgeon: Sudheer Hayes MD; Location: [facility]; Service: Gastroenterology OR EGD ABLATE TUMOR POLYP/LESION W/DILATION& WIRE N/A 02/03/2021 Procedure: UPPER ENDOSCOPY WITH POSSIBLE DILATION AND ABLATION OF TUMOR(S) AND POSSIBLE MODERATE SEDATION; Surgeon: Sudheer Hayes MD; Location: [facility]; Service: Gastroenterology OR EGD ABLATE TUMOR POLYP/LESION W/DILATION& WIRE N/A 05/19/2021 Procedure: UPPER ENDOSCOPY WITH POSSIBLE DILATION AND ABLATION OF TUMOR(S) AND POSSIBLE MODERATE SEDATION; Surgeon: Sudheer Haeys MD; Location[facility]; Service: Gastroenterology OR EGD ABLATE TUMOR POLYP/LESION W/DILATION& WIRE Left 08/17/2021 Procedure: UPPER ENDOSCOPY WITH POSSIBLE DILATION AND ABLATION OF TUMOR(S) AND POSSIBLE MODERATE SEDATION; Surgeon: Sudheer Hayes MD; Location: [facility]; Service: Gastroenterology OR EGD ABLATE TUMOR POLYP/LESION W/DILATION& WIRE N/A 05/21/2024 Procedure: UPPER ENDOSCOPY WITH POSSIBLE DILATION AND ABLATION OF TUMOR(S) AND POSSIBLE MODERATE SEDATION; Surgeon: Sudheer Hayes MD; Location: [facility]; Service: Gastroenterology OR EGD ABLATE TUMOR POLYP/LESION W/DILATION& WIRE N/A 12/03/2024 Procedure: UPPER ENDOSCOPY WITH POSSIBLE DILATION AND ABLATION OF TUMOR(S) AND POSSIBLE MODERATE SEDATION; Surgeon: Sudheer Hayes MD; Location: [facility]; Service: Gastroenterology OR EGD DILATION GASTRIC/DUODENAL STRICTURE N/A 09/18/2024 Procedure: UPPER ENDOSCOPY WITH DILATION OF GASTRIC DUODENAL STRICTURE(S) WITH POSSIBLE MODERATE SEDATION; Surgeon: Sudheer Hayes MD; Location: [facility] OR; Service: Gastroenterology OR EGD DILATION GASTRIC/DUODENAL STRICTURE N/A 10/09/2024 Procedure: UPPER ENDOSCOPY WITH DILATION OF GASTRIC DUODENAL STRICTURE(S) WITH POSSIBLE MODERATE SEDATION; Surgeon: Sudheer Hayes MD; Location: [facility]; Service: Gastroenterology OR EGD TRANSORAL BIOPSY SINGLE/MULTIPLE N/A 11/18/2021 Procedure: UPPER ENDOSCOPY WITH POSSIBLE BIOPSY AND/OR POLYPECTOMY AND POSSIBLE MODERATE SEDATION; Surgeon: Sudheer Hayes MD; Location: [address] [place] [address]; Service: Gastroenterology OR EGD TRANSORAL BIOPSY SINGLE/MULTIPLE N/A 12/01/2022 Procedure: UPPER ENDOSCOPY WITH POSSIBLE BIOPSY AND/OR POLYPECTOMY AND POSSIBLE MODERATE SEDATION; Surgeon: Sudheer Hayes MD; Location: [address] [place] [address]; Service: Gastroenterology OR EGD TRANSORAL BIOPSY SINGLE/MULTIPLE N/A 05/11/2023 Procedure: UPPER ENDOSCOPY WITH POSSIBLE BIOPSY AND/OR POLYPECTOMY AND POSSIBLE MODERATE SEDATION; Surgeon: Sudheer Hayes MD; Location: [address] [place] [address]; Service: Gastroenterology OR ESOPHAGOGASTRODUODENOSCOPY TRANSORAL DIAGNOSTIC N/A 11/22/2023 Procedure: UPPER ENDOSCOPY; DIAGNOSTIC WITH BRUSH/WASH (SP) WITH POSSIBLE MODERATE SEDATION; Surgeon: Sudheer Hayes MD; Location: [facility]; Service: Gastroenterology OR ESOPHAGOGASTRODUODENOSCOPY TRANSORAL DIAGNOSTIC N/A 02/13/2024 Procedure: UPPER ENDOSCOPY; DIAGNOSTIC WITH BRUSH/WASH (SP) WITH POSSIBLE MODERATE SEDATION; Surgeon: Sudheer Hayes MD; Location: [facility]; Service: Gastroenterology OR ESOPHAGOGASTRODUODENOSCOPY TRANSORAL DIAGNOSTIC N/A 08/20/2024 Procedure: UPPER ENDOSCOPY; DIAGNOSTIC WITH BRUSH/WASH (SP) WITH POSSIBLE MODERATE SEDATION; Surgeon: Sudheer Hayes MD; Location: [facility]; Service: Gastroenterology ROOT CANAL ROTATOR CUFF REPAIR 2018 TUBAL LIGATION tubal procedure for sterilization WISDOM TOOTH EXTRACTION MEDICATIONS: Current Medications as of 03/04/2025 acetaminophen (Tylenol Arthritis Pain) 650 mg 8 hr tablet Take 650 mg by mouth every 8 hours as needed for pain. amoxicillin-clavulanate (AUGMENTIN) 400-57 mg chewable tablet Chew and swallow 800 mg by mouth 2 times a day. azelastine (ASTELIN) 137 mcg (0.1 %) nasal spray SMARTSI [place](s) Both Nares Twice Daily diphenhydrAMINE (BENADRYL) 25 mg capsule Take 25 mg by mouth nightly as needed (Allergy symptoms). FLUoxetine (PROzac) 40 mg capsule Take 40 mg by mouth once a day. fluticasone propionate (FLONASE) 50 mcg/actuation nasal spray Administer 2 sprays into each nostrilonce a day. LORazepam (ATIVAN) 1 mg tablet Take 1 [...] times a day. ALLERGIES: Allergies Allergen Reactions Oxycodone Itching and Agitation SOCIAL HISTORY: Social History Tobacco Use Smoking [...] SYSTEMS: Constitutional ROS: negative - fever, fatigue +10lb weight loss intentional Neurological ROS: negative for - headaches, numbness/tingling, [...] Component Value Date COVID19 Not Detected 11/15/2021 No results found for: WBC , HGB , HCT , MCV , PLT Lab Results Component Value Date BUN 11 06/26/2021 CREATININE 0.78 06/26/2021 No results found for: HGBA1C No components found for: LFT No results found for: TSH No results found for: INR , PROTIME IMAGING /OTHER STUDIES: Pertinent results include: Cardiac Imaging EKG Recent EKGs ECG 12 lead Collected: 08/09/2023 8:06 AM (Final result) Impression: NORMAL SINUS RHYTHM CANNOT RULE OUT ANTERIOR INFARCT , AGE UNDETERMINED ABNORMAL ECG NO PREVIOUS ECGS AVAILABLE Confirmed by Dwayne West ([id number]) on 08/12/2023 10:08:19 AM Other Imaging EGD 12/2024 Impression: - Z-line regular, 35 cm from the incisors. - Very mild benign-appearing esophageal stenosis at 30cmfrom the incisors. Dilated to 15mm. - Multiple biopsies were obtained from the esophagus every 2cm from 24 to 34 cm from the incisors and placed into seperate jars. - Normal stomach. - Normal examined duodenum. Recommendations: - Discharge patient to home. - The patient will be observed post-procedure, until all discharge criteria are met - Patient has a contact number available [...] Repeat upper endoscopy in 4 months for surveillance CONSULTS: Pertinent consults include: NA ANESTHESIA CONSIDERATIONS - Personal problem with anesthesia: Yes PONV - Family history of anesthesia problems: No - Dental: No - Hardware/implants: Yes left breast marker - Activity: patient able to climb a flight of stairs without stopping to catch their breath or having chest pain - STOPBANG: SHANNON resolved with weight loss - Blood Products: patient has no latter day or cultural beliefs that would prevent blood/blood product transfusion VISIT DIAGNOSIS: 1. Pre-op evaluation 2. History of Greenfield's esophagus PSE ORDERS: No orders of the defined types were placed in this encounter. Assessment/Plan: 54 y.o. female who was interviewed via telephone today prior to Procedure(s): UPPER ENDOSCOPY; DIAGNOSTIC WITH BRUSH/WASH (SP) WITH POSSIBLE MODERATE SEDATION on 03/18/2025. 1. Raymond Boucher was phone screened for the above procedure. This form serves as the history portion of the patient's H&P. The patient will be evaluated by anesthesia and their surgeon on the day of surgery. Vital signs will be obtained in the SACU on the day of surgery. A physical exam willbe obtained on the day of surgery by a pre-testing TECHNICIAN AUTOMATED EQUIPMENT/PA or the surgeon/designee. The physical examportion of the H&P will be documented as an addendum to this note, or less commonly as a separate brief progress note. 2. Pre-Op Labs - Not indicated based on surgical procedure or patient's medical history. 3. EKG - Not indicated based on surgical procedure or patient's medical history. 4. DOS Labs- POCT urine HCG 5. Anticoagulation/Aspirin Plan: NA 6. Cardiac: Landscape Artist: no history of cardiac problems 7. Pulmonary: Gunite Nozzle Operator: no history of pulmonary problems Viola San NP Pre-Surgical Evaluation Department of Anesthesiology [facility] ----- documented in this encounter Miscellaneous Notes * Pre-Procedure Instructions - Viola San NP - 03/04/2025 12:34 PM EDT PRE-OPERATIVE/PRE-PROCEDURAL PATIENT INSTRUCTIONS Raymond Boucher [id number] Date of procedure: 03/18/2025 Surgeon/Proceduralist: Surgeon(s): Sudheer Hayes MD [facility] [address] [place] [address] ARRIVAL TIME: You will receive a call from the career development consultant on the day before your procedure. Please contact the scheduling department at [phone] if you have not [facility]. For procedures in the OR: Enter the hospital through the [facility]. Take Elevator D to 2nd (second) floor: Surgical Admissions. For procedures in the Endoscopy Suite: [facility]. Take Elevator C (Yellow) to Level A: Endoscopy Suite. FASTING: NOTE: These fasting instructions are very important. Your procedure may be cancelled if you do not fast as outlined below. Do not eat any food after midnight. (Example: If procedure is on Dec 02, no food after 12:00 am onDec 02). You may drink only the following clear liquids until two (2) hours before arrival: water,apple juice, black coffee, or black tea. No milk, cream, candy, mints, or lozenges after midnight. NOTHING BY MOUTH for two (2) hours before arrival. Pre-Procedure Medication Instructions: Pre-Surgery Instructions: Medication Instructions acetaminophen (Tylenol Arthritis Pain) 650 mg 8 hr tablet Take morning of procedure if needed azelastine (ASTELIN) 137 mcg (0.1 %) nasal spray Take morning of procedure if needed diphenhydrAMINE (BENADRYL) 25 mg capsule Take night before procedure if needed FLUoxetine (PROzac) 40 mg capsule Take morning of procedure fluticasone propionate (FLONASE) 50 mcg/actuation nasal spray Take morning of procedure if needed LORazepam (ATIVAN) 1 mg tablet Take morning of procedure if needed multivit-min/ferrous fumarate (MULTI VITAMIN ORAL) Stop taking 7 days prior to procedure pantoprazole DR (PROTONIX) 40 mg tablet Take morning of procedure sucralfate (CARAFATE) 1 gram tablet Take morning of procedure Resume all held medications after the procedure unless directed otherwise by your physician. Additional Instructions: Shower with antibacterial soap (such as Dial) the night before surgery and again the morning of surgery. Do not wear powder, deodorant, fragrance, creams, or lotions. Remove fingernail slovak or artificial nails. Do not wear makeup or contact lenses on the day of your procedure. Remove all body piercings and jewelry prior to arrival. Failure to do so could result in cancellation of your procedure. Wear comfortable, loose-fitting clothing. Wear sturdy shoes such as sneakers. Do not wear flip flops. Patients with facial hair are asked to shave prior to arrival for surgery unless they have latter day or cultural reasons not to. Do not bring any valuables or a purse/wallet with you to the hospital. Do not drink alcohol for 24 hours prior to surgery. Do not smoke or 'vape' tobacco/nicotine products 24-48 hours prior to procedure. Do not smoke/consume marijuana/THC for 72 hours before the procedure. It is OK to continue to take Tylenol right up to the day of your procedure. Do not take NSAIDs (Ibuprofen, Motrin, Aleve, Naproxen, Diclofenac etc.) for 7 days before surgery as these medications can thin the blood. Do not take vitamins or supplements 7 days prior to your procedure (unless otherwise noted above). Please notify your surgeon/physician if you develop fever, cough, sore throat, diarrhea, vomiting, chest pain, or any changes to your health prior to your procedure. Please contact your surgeon with any questions about your procedure or recovery, or if you need to cancel or reschedule your procedure. Please bring a photo ID and your insurance card the day of surgery. If applicable: Patients on insulin/diabetes medications: It is very important to take these medications specifically as directed above. If applicable, please check your blood sugar 2 hours prior to arrival. You maydrink apple juice if your blood sugar is low. We will check and manage your blood sugar upon your arrival. Sleep apnea patients: Please bring your CPAP/BiPAP with you to the hospital. We may need to use it in the Recovery Room. FOR AMBULATORY SURGERY PATIENTS (being discharged on the day of surgery): You must have a responsible adult to drive you home AND stay with you for 24 hours A taxi ride home is acceptable if you are accompanied by a responsible adult. A bus ride home is not permitted. documented in this encounter Plan of Treatment Upcoming Encounters Date Type Department Care Team (Latest Contact Info) Description 03/18/2025 9:30 AM EDT Hospital Encounter [facility] [address] [place] [address] Sudheer Hayes MD [address] [place] [phone] 03/18/2025 9:30 AM EDT Anesthesia Event [facility] [address] [place] [address] Angelica Miner DO [address] [place] [address] [place] [address] 03/18/2025 9:30 AM EDT - 03/18/2025 10:20 AM EDT Surgery [facility] [address] [place] [address] Sudheer Hayes MD [address] [place] [phone] UPPER ENDOSCOPY; DIAGNOSTIC WITH BRUSH/WASH (SP) WITH POSSIBLE MODERATE SEDATION [42232 (CPT??)] Scheduled Procedures Name Priority Associated Diagnoses Date/Ti me UPPER ENDOSCOPY; DIAGNOSTIC WITH BRUSH/WASH (SP) WITH POSSIBLE MODERATE SEDATION History of Greenfield's esophagus 03/18/2025 9:30 AM EDT documented as of this encounter Visit Diagnoses Diagnosis Pre-op evaluation- Primary History of Greenfield's esophagus History of Greenfield's esophagus documented in this encounter Care Teams Collection Officer Relationship Specialty Start Date End Date Chan Wilson [address] [place] [phone] PCP - General Internal Medicine 01/09/20 documented as of this encounter
--- OUTSIDE RECORDS SUMMARY | 2025-03-08 11:57 | XMS_ITS | Encounter Summary ---
Author Organization [facility] Address [address] [place] [address] Care Team Providers Care Consolidator Name Role Phone Chan Wilson Primary Care Provider [phone] Encounter Details Date Type Department Care Team (Late st Contact Info) Description 11/14/2024 Stretch Message [facility] HB Revenue Cycle Management [address] [place] [address] [place], Generic Provider [address] [phone] payment plan Social History Tobacco Use Types [...] Description 03/18/2025 9:30 AM EDT Hospital Encounter [facility] [address] [place] [address] Sudheer Hayes MD [address] [place], [place] [phone] 03/18/2025 9:30 AM EDT Anesthesia Event [facility] [address] [place] [address] Angelica Miner DO [address] [facility] [place] [address] 03/18/2025 9:30 AM EDT - 03/18/2025 10:20 AM EDT Surgery [facility] [address] [place] [address] Sudheer Hayes MD [address] [place], [place] [phone] UPPER ENDOSCOPY; DIAGNOSTIC WITH BRUSH/WASH (SP) WITH POSSIBLE MODERATE SEDATION [19472 (CPT??)] Scheduled Procedures Name Priority Associated Diagnoses Date/Ti me UPPER ENDOSCOPY; DIAGNOSTIC WITH BRUSH/WASH (SP) WITH POSSIBLE MODERATE SEDATION History of Greenfield's esophagus 03/18/2025 9:30 AM EDT documented as of this encounter Visit Diagnoses Not on filedocumented in this encounter Care Teams Consolidator Relationship Specialty Start Date End Date Chan Wilson [address] [place] [phone] PCP - General Internal Medicine 01/09/20 documented as of this encounter
--- OUTSIDE RECORDS SUMMARY | 2025-03-08 11:57 | XMS_ITS | Encounter Summary ---
Author Organization [facility] Address [address] [place] [address] Care Team Providers Care Photoresist Printer Name Role Phone TwainChan Primary Care Provider [phone] Encounter Details Date Type Department Care Team (Late st Contact Info) Description 11/10/2021 Smart Cube Message [facility] Endoscopy [address] [place], [place] [phone] [place], Generic Provider [facility] [place] [phone] instructions Social History Tobacco Use Types Packs/Day [...] EDT Hospital Encounter [facility] [address] [place], [place] [phone] Sudheer Hayes MD [address] [place], [place] [phone] 03/18/2025 9:30 AM EDT Anesthesia Event [facility] [address] [place] [address] Angelica Miner DO [address] [facility] [place] [address] 03/18/2025 9:30 AM EDT - 03/18/2025 10:20 AM EDT Surgery [facility] [address] [place] [address] Sudheer Hayes MD [address] [place] [address] UPPER ENDOSCOPY; DIAGNOSTIC WITH BRUSH/WASH (SP) WITH POSSIBLE MODERATE SEDATION [67364 (CPT??)] Scheduled Procedures Name Priority Associated Diagnoses Date/Ti me UPPER ENDOSCOPY; DIAGNOSTIC WITH BRUSH/WASH (SP) WITH POSSIBLE MODERATE SEDATION History of Greenfield's esophagus 03/18/2025 9:30 AM EDT documented as of this encounter Visit Diagnoses Not on filedocumented in this encounter Care Teams Photoresist Printer Relationship Specialty Start Date End Date Chan Wilson [address] [place] [phone] PCP - General Internal Medicine 01/09/20 documented as of this encounter
--- OUTSIDE RECORDS SUMMARY | 2025-03-08 11:57 | XMS_ITS | Encounter Summary ---
Author Organization [facility] Address [address] [place] [address] Care Team Providers Care Mechatronics Engineer Name Role Phone Chan Wilson Primary Care Provider [phone] Encounter Details Date Type Department Care Team (Late st Contact Info) Description 09/26/2023 ReferralMD Message [facility] HB Revenue Cycle Management [address] [place] [address] [employer], Generic Provider [address] [phone] payment plan Social History Tobacco Use Types [...] 03/18/2025 9:30 AM EDT Hospital Encounter [facility] End[facility] [address] [place] [address] Sudheer Hayes MD [address] [place], [place] [phone] 03/18/2025 9:30 AM EDT Anesthesia Event [facility] Endoscopy [address] [place] [address] Angelica Miner DO 55 [facility] [place] [address] 03/18/2025 9:30 AM EDT - 03/18/2025 10:20 AM EDT Surgery [facility] Endoscopy [address] [place] [address] Sudheer Hayes MD [address] [place], [place] [phone] UPPER ENDOSCOPY; DIAGNOSTIC WITH BRUSH/WASH (SP) WITH POSSIBLE MODERATE SEDATION [80264 (CPT??)] Scheduled Procedures Name Priority Associated Diagnoses Date/Ti me UPPER ENDOSCOPY; DIAGNOSTIC WITH BRUSH/WASH (SP) WITH POSSIBLE MODERATE SEDATION History of Greenfield's esophagus 03/18/2025 9:30 AM EDT documented as of this encounter Visit Diagnoses Not on filedocumented in this encounter Care Teams Mechatronics Engineer Relationship Specialty Start Date End Date Chan Wilson [address] [place] [phone] PCP - General Internal Medicine 01/09/20 documented as of this encounter
--- OUTSIDE RECORDS SUMMARY | 2025-03-08 11:57 | XMS_ITS | Referral Summary ---
Author Organization [facility] Address [address] [place] [address] Care Team Providers Care Wound/Ostomy Clinical Nurse Specialist Name Role Phone Chan Wilson Primary Care Provider [phone] Encounters Date Type Department Care Team Description 03/04/2025 1:00 PM EDT Pre-Admission Testing [facility] [address] [place] [address] [address] [place] [address] Viola San NP Pre-op evaluation (Primary Dx); History of Greenfield's esophagus 01/28/2025 Prep for Case [facility] [address] [place] [address] Deburrer Strip: Sudheer Linda MD 12/19/2024 myChart Message [facility] HB Revenue Cycle Management [address] [place] [address] Mychart, Generic Provider payment plan 12/13/2024 Results Follow-Up [facility] [address] [place] [address] Deburrer Strip: Sudheer Linda MD from Last 3 Months [...] 137 mcg (0.1 %) nasal spray [employer]ART[employer] [place](s) Both Nares Twice Daily 4 Active multivit-min/fe [...] Administration Dates Next Due Covid-19, Pfizer, mRNA, Stephenson valent, PF 30 mcg/0.3 mL dose (for [...] Description 03/18/2025 9:30 AM EDT Hospital Encounter [facility] [address] [place] [address] Sudheer Hayes MD [address] [place] [address] 03/18/2025 9:30 AM EDT Anesthesia Event [facility] [address] [place] [address] Angelica Miner DO 55 [facility] [place] [address] 03/18/2025 9:30 AM EDT - 03/18/2025 10:20 AM EDT Surgery [facility] [address] [place] [address] Sudheer Hayes MD [address] [place] [address] UPPER ENDOSCOPY; DIAGNOSTIC WITH BRUSH/WASH (SP) WITH POSSIBLE MODERATE SEDATION [72570 (CPT??)] Scheduled Procedures Name Priority Associated Diagnoses Date/Ti me UPPER ENDOSCOPY; DIAGNOSTIC WITH BRUSH/WASH (SP) WITH POSSIBLE MODERATE SEDATION History of Greenfield's esophagus 03/18/2025 9:30 AM EDT Goals Goal Patient Goal Type Associated Problems Recent Progress Patient-Stated? Author Autogenera vamshi Goal Care Plan Autogenerated Problem No Optime Background User Procedures * Due to [place] [employer] law, this organization might not be sharing negative HIV tests. Procedure Name Priority Date/Time Associated Diagnosis Comments COLONOSCOPY 12/01/2022 from Last 3 Months or Most Recently Relevant to Health Maintenance Results * Due to [place] [employer] law, this organization might not be sharing negative HIV tests. * COLONOSCOPY (12/01/2022) Narrative Procedure Note Sudheer Hayes MD - 12/01/2022 11:28 AM EST [facility] Endoscopy - [facility] Patient Name: Raymond Boucher Procedure Date: 12/01/2022 11:28 AM Date of : 1970 Admit Type: Outpatient Age: 51 Room: [facility] 02 Gender: Female Note Status: Finalized Attending [...] Date Diagnosed Date Autogenerated Problem 03/08/2025 Insurance [facility] Advance Directives Documents on File Type Date Recorded Patient Visitor Information Assistant Expl bossmanion Health Care Proxy 01/09/2020 10:59 AM Demetria Boucher * Presumed Full Code (Latest Code Status on File) Date Activated Date Inactivated Comments 11/18/2021 8:52 AM 11/18/2021 12:34 PM * Presumed Full Code Date Activated Date Inactivated Comments 08/07/2020 8:55 AM 08/07/2020 12:26 PM Healthcare Agents on File Name Relationship Healthcare Agent Relationshi p Communication Demetria Boucher Son Health Care Agent Care Teams Wound/Ostomy Clinical Nurse Specialist Relationship Specialty Start Date End Date Chan Wilson [address] [place] [address] PCP - General Internal Medicine 01/09/20
--- OUTSIDE RECORDS SUMMARY | 2025-03-08 11:57 | XMS_ITS | Encounter Summary ---
Author Organization [facility] Address [address] [place] [address] Care Team Providers Care Armed Security Officer Name Role Phone Chan Wilson Primary Care Provider [phone] Encounter Details Date Type Department Care Team (Late st Contact Info) Description 08/01/2023 Cervalis Message [facility] HB Revenue Cycle Management [address] [place] [address] Mobiliz, Generic Provider [address] [id number] payment plan Social History Tobacco Use Types [...] 03/18/2025 9:30 AM EDT Hospital Encounter [facility] Endoscopy [address] [place] [address] Sudheer Hayes MD [address] [place], [place] [phone] 03/18/2025 9:30 AM EDT Anesthesia Event [facility] Endoscopy [address] [place] [address] Angelica Miner DO 55 [facility] [place] [address] 03/18/2025 9:30 AM EDT - 03/18/2025 10:20 AM EDT Surgery [facility] Endoscopy [address] [place] [address] Sudheer Hayes MD [address] [place] [address] UPPER ENDOSCOPY; DIAGNOSTIC WITH BRUSH/WASH (SP) WITH POSSIBLE MODERATE SEDATION [34203 (CPT??)] Scheduled Procedures Name Priority Associated Diagnoses Date/Ti me UPPER ENDOSCOPY; DIAGNOSTIC WITH BRUSH/WASH (SP) WITH POSSIBLE MODERATE SEDATION History of Greenfield's esophagus 03/18/2025 9:30 AM EDT documented as of this encounter Visit Diagnoses Not on filedocumented in this encounter Care Teams Armed Security Officer Relationship Specialty Start Date End Date Chan Wilson [address] [place] [address] PCP - General Internal Medicine 01/09/20 documented as of this encounter
--- OUTSIDE RECORDS SUMMARY | 2025-03-08 11:57 | XMS_ITS | Encounter Summary ---
Author Organization [facility] Address [address] [place] [address] Care Team Providers Care Hydraulic And Plumbing Installer Name Role Phone MedullaChan Primary Care Provider [phone] Encounter Details Date Type Department Care Team (Late st Contact Info) Description 11/10/2021 [employer] Message [facility] Endoscopy [address] [place], [place] [phone] Datanomic, Generic Provider [facility] [address] [phone] appointment information Social History Tobacco Use Types [...] Description 03/18/2025 9:30 AM EDT Hospital Encounter [facility] Endoscopy [address] [place], [place] [phone] Sudheer Hayes MD [address] [place], [place] [phone] 03/18/2025 9:30 AM EDT Anesthesia Event [facility] Endoscopy [address] [place] [address] Angelica Miner DO 55 [facility] [place] [place] [address] 03/18/2025 9:30 AM EDT - 03/18/2025 10:20 AM EDT Surgery [facility] Endoscopy [address] [place] [address] Sudheer Hayes MD [address] [place] [address] UPPER ENDOSCOPY; DIAGNOSTIC WITH BRUSH/WASH (SP) WITH POSSIBLE MODERATE SEDATION [24274 (CPT??)] Scheduled Procedures Name Priority Associated Diagnoses Date/Ti me UPPER ENDOSCOPY; DIAGNOSTIC WITH BRUSH/WASH (SP) WITH POSSIBLE MODERATE SEDATION History of Greenfield's esophagus 03/18/2025 9:30 AM EDT documented as of this encounter Visit Diagnoses Not on filedocumented in this encounter Care Teams Hydraulic And Plumbing Installer Relationship Specialty Start Date End Date Chan Wilson [address] [place] [address] PCP - General Internal Medicine 01/09/20 documented as of this encounter
--- OUTSIDE RECORDS SUMMARY | 2025-03-08 11:57 | XMS_ITS | Encounter Summary ---
Author Organization [facility] Address [address] [place] [address] Care Team Providers Care Resistor Tester Name Role Phone Chan Wilson Primary Care Provider [phone] Encounter Details Date Type Department Care Team (Late st Contact Info) Description 08/24/2023 Mobile[employer]eda Message [facility] HB Revenue Cycle Management [address] [place] [address] Infiniu, Generic Provider [address] [phone] pay plan Social History Tobacco Use Types [...] Description 03/18/2025 9:30 AM EDT Hospital Encounter [facility] Endoscopy [address] [place] [address] Sudheer Hayes MD [address] [place], [place] [phone] 03/18/2025 9:30 AM EDT Anesthesia Event [facility] Endoscopy [address] [place] [address] Angelica Miner DO 55 [facility] [place] [address] 03/18/2025 9:30 AM EDT - 03/18/2025 10:20 AM EDT Surgery [facility] Endoscopy [address] [place] [address] Sudheer Hayes MD [address] [place], [place] [phone] UPPER ENDOSCOPY; DIAGNOSTIC WITH BRUSH/WASH (SP) WITH POSSIBLE MODERATE SEDATION [13997 (CPT??)] Scheduled Procedures Name Priority Associated Diagnoses Date/Ti me UPPER ENDOSCOPY; DIAGNOSTIC WITH BRUSH/WASH (SP) WITH POSSIBLE MODERATE SEDATION History of Greenfield's esophagus 03/18/2025 9:30 AM EDT documented as of this encounter Visit Diagnoses Not on filedocumented in this encounter Care Teams Resistor Tester Relationship Specialty Start Date End Date Chan Wilson [address] [place] [address] PCP - General Internal Medicine 01/09/20 documented as of this encounter
== END 2025-03-08 12:44 | disposition home or self-care (01) ==
PROVIDERS: PCP Internal Medicine; Visit Provider Nurse Practitioner Family
DX: M25.572 Pain in left ankle and joints of left foot (principal); M25.472 Effusion, left ankle

== ENCOUNTER → 2025-03-08 11:27 | Outpatient (BNVA) | payer OTHER, SELFPAY | PROVIDERS: PCP Internal Medicine; Visit Provider Nurse Practitioner Family | DX: Z13.89 Encounter for screening for other disorder (principal) ==

== ENCOUNTER 2025-04-15 14:18 | Outpatient (AMB) | payer OTHER, SELFPAY ==
--- NOTE | 2025-04-15 14:19 | MHC.OFFVIS ---
Vital Signs 04/15/25 14:20 Height 4 ft 9 in Weight 171 lb 15.369 oz BMI 37.2 BP 143/86 H Blood Pressure Location Lt radial Position Sitting Pulse 67 Intake Visit Reasons: f/u treatment Intake Note: Irbian presents in the office as a follow up to her treatment. CC: Stopped taking Linzess - she states she has gastroparesis so she has a little bit of constipation and diarrhea. Mental Retardation Nurse Required: No Allergies oxycodone [From PERCOCET] Allergy (Intermediate, Verified 03/08/25 11:47) IRRITABILITY, RASH meperidine [Demerol] Allergy (Unknown, Verified 03/08/25 11:47) Unknown hydrocodone [From VICODIN] Adverse Reaction (Intermediate, Verified 03/08/25 11:47) Rash HPI HPI f/u treatment: Details: 54 yr old f being called for f/u RECAP: index visit 07/2019 \ 2 weeks of llq abdo pain, like labor pains CT scan with diverticulitis 05/2019 in descending colon, also has lap band she had egd and colonoscopy 2017 and was told they were normal. I repeated EGD colonoscopy--she has h pylori (treated many times) and barretts w HGD, colonoscopy with poor prep she was referred to [facility] for RFA and is still being followed for the barretts--due to recurrent disease she was referred to [facility] and she had cryotherapy to areas of persistent high grade squamous dysplasia in proximal esophagus . I did repeat colonoscopy 2020 and it was clear of polyps, hemorrhoids were noted She is still seeing Freddy at [facility] for cryotherapy for her esophagus I ordered GES: 08/23- pos 30% at 4 hrs INTERIM: she still has HGD of the esophagus insurance was not covering [facility] she has been on and off regards her esophagus and surgery options She is waiting to see [facility] still taking PPI EXAM: GENERAL: The patient is well developed and nontoxic. VITAL SIGNS:see workflow HEENT: Nonicteric sclerae, PERRLA, EOMI. Oropharynx clear. Moist mucous membranes. Conjunctivae appear well perfused. No thyroid mass. CHEST: Chest wall is nontender. HEART: Regular rate and rhythm without murmurs. LUNGS: Clear to auscultation bilaterally. ABDOMEN: Soft, positive bowel sounds, nontender, no organomegaly.no flank tenderness SKIN: No rash, no excessive bruising, petechiae, or purpura. NEUROLOGIC: Cranial nerves II-XII intact without motor/sensory deficit. Psych: normal affect Assessments 1. Barretts esophagus and high grade squamous cell dysplasia being seen at [facility] and getting dilation--suggested to have esophagectomy--looking for second opinion, 2. bloating, satiety, likely 2.2 gastroparesis possibly from 1. above PLAN: 1/ failed linaclotide, try motegrity 2/ change to esomeprazole 3/ refer [facility] for further assessment [facility] [employer] [facility] Medical History Arthritis Surgical History History of cryosurgery Hx of bilateral breast reduction surgery Hx of repair of left rotator cuff Hx of section Hx of laparoscopic gastric banding History of esophagogastroduodenoscopy (EGD) H/O colonoscopy Social History Patient Tobacco Use Status: Never used Tobacco Second Hand Smoke Exposure: Yes Physical Exam Vital Signs: Last Vital Signs Pulse 67 04/15/25 14:20 BP 143/86 H 04/15/25 14:20 BMI result Body Mass Index 37.2 Assessment & Plan Assessment & Plan (1) Greenfield esophagus with dysplasia: Code(s): K22.719 - Greenfield's esophagus with dysplasia, unspecified Category: Medical Plan: as above (2) Squamous cell esophageal cancer: Code(s): C15.9 - Malignant neoplasm of esophagus, unspecified Category: Medical Plan: as above Medications: New esomeprazole magnesium 40 mg PO DAILY 90 caps 2RF prucalopride (Motegrity) 2 mg PO DAILY 30 tabs 2RF Coding Level of Care Code Est Pt Level 3 (22350) Diagnoses Greenfield esophagus with dysplasia K22.719 Squamous cell esophageal cancer C15.9
[2025-04-15 14:20] VITALS: BP 143/86; PULSE 67; BMI 37.2
--- OUTSIDE RECORDS SUMMARY | 2025-04-15 16:01 | XMS_ITS | Encounter Summary ---
Author Organization [facility] Address [address] [place] [address] Care Team Providers Care Transport Tank Technician Name Role Phone Chan Wilson Primary Care Provider [phone] Encounter Details Date Type Department Care Team (Late st Contact Info) Description 11/02/2022 Energy Informatics Message [facility] [employer] Revenue Cycle Management [address] [place] [address] [employer] Lebario, Generic Provider [address] [phone] Payment Plan Social History Tobacco Use Types [...] Department Care Team (Latest Contact Info) Description 07/03/2025 2:00 PM EDT Hospital Encounter [facility] Endoscopy [address] [place] [address] Sudheer Hayes MD [address] [place] [address] 07/03/2025 2:00 PM EDT - 07/03/2025 2:30 PM EDT Surgery [facility] Endoscopy [address] [place] [address] Sudheer Hayes MD [address] [place] [address] UPPER ENDOSCOPY; DIAGNOSTIC WITH BRUSH/WASH (SP) WITH POSSIBLE MODERATE SEDATION [42530 (CPT??)] Scheduled Procedures Name Priority Associated Diagnoses Date/Ti me UPPER ENDOSCOPY; DIAGNOSTIC WITH BRUSH/WASH (SP) WITH POSSIBLE MODERATE SEDATION Greenfield's esophagus with high grade dysplasia 07/03/2025 2:00 PM EDT documented as of this encounter Visit Diagnoses Not on filedocumented in this encounter Care Teams Transport Tank Technician Relationship Specialty Start Date End Date Chan Wilson [address] [place] [address] PCP - General Internal Medicine 01/09/20 documented as of this encounter
== END 2025-04-15 14:57 | disposition home or self-care (01) ==
LOC: HO.HGI 14:18
PROVIDERS: PCP Internal Medicine; Visit Provider Internal Medicine Gastroenterology
DX: C15.9 Malignant neoplasm of esophagus, unspecified (principal)
CPT/HCPCS: 99213

== ENCOUNTER → 2025-04-15 14:18 | Outpatient (BNVA) | payer OTHER, SELFPAY | PROVIDERS: PCP Internal Medicine; Visit Provider Internal Medicine Gastroenterology ==

== ENCOUNTER 2025-06-21 13:12 | Outpatient (REF) | payer OTHER, SELFPAY ==
--- NOTE | ~2025-06-21 | CT_ITS ---
EXAMINATION: CT ABDOMEN AND PELVIS WITH CONTRAST CLINICAL INFORMATION: K 57.82. Diverticulitis of the intestine. COMPARISON: August 21, 2024 TECHNIQUE: Multidetector volumetric images were obtained from the superior aspect of the liver through the pubic symphysis following administration 85 mL of Omnipaque 350 intravenous contrast. Sagittal and coronal reformatted images were obtained on the technologist's workstation. Oral contrast: No This CT examination was performed using dose optimization techniques as appropriate, variously including the following: *Automated exposure control *Adjustment of mA and/or kV according to patient size (this includes techniques or standardized protocols for targeted exams where dose is matched to indication/reason for exam; i.e. extremities or head) *Use of iterative reconstruction technique DLP: 505 mGy centimeter. FINDINGS: LUNG BASES: No acute airspace disease or discrete pulmonary nodules. LIVER, GALLBLADDER, AND BILIARY TREE: Liver measures 15 cm. No focal mass. Main portal veins, hepatic veins and intrahepatic portion of the IVC are patent. Gallbladder is contracted. No pericholecystic fluid collection or gallbladder wall thickening. No intrahepatic or extrahepatic biliary ductal dilatation. PANCREAS: No focal mass. No peripancreatic fluid collection. No main pancreatic ductal dilatation. SPLEEN: 7 cm. No focal lesion. ADRENAL GLANDS: No nodular lesions. KIDNEYS AND URETERS: No hydronephrosis. No gross masses. 8 mm cystic lesion, right kidney. Normal enhancement pattern of the renal parenchyma. BLADDER: Fluid-filled collapsed. GASTROINTESTINAL TRACT: There is a collapsed appearance of the left hemicolon with questionable intestinal wall thickening extending from the distal transverse colon to the rectosigmoid colon junction. Scattered diverticula in the sigmoid colon. No pericolonic edema pattern. No pneumatosis intestinalis. No intestinal obstruction pattern. No pneumoperitoneum. No ascites. No peripheral enhancing fluid collection in the peritoneal cavity. Appendix is normal. ABDOMINAL WALL: Small fat-containing umbilical hernia. LYMPH NODES: There is a 2.9 cm lymphadenopathy in the left inguinal region similar since prior exam. No mesenteric or retroperitoneal lymphadenopathy. VASCULAR: No aneurysm or dissection, abdominal aorta. PELVIC VISCERA: Heterogeneous nodular uterus with likely 3.6 cm subserosal uterine fibroid in the posterior body fundus junction OSSEOUS STRUCTURES: Castellvi type III sacralization. Degenerative changes in the symphysis pelvis and coxofemoral joints. Multilevel lumbar spondylosis. No acute fracture or gross listhesis. CT/CT abdomen pelvis w IV con IMPRESSION: Concerning colitis, left hemicolon. No abscesses, peritoneal cavity. 2.9 cm lymphadenopathy, left inguinal. Probable 3.6 cm subserosal uterine fibroid. Subcentimeter cystic lesion right kidney. Fleischner guidelines were followed. Electronically signed by: Juan Laird MD 06/21/2025 02:34 PM EDT
--- OUTSIDE RECORDS SUMMARY | 2025-06-21 13:14 | XMS_ITS | Clinical Summary ---
Author Organization [facility] Address [address] [place] [phone] Phone Care Team Providers Care Geometry Teacher Name Role Phone Chan Roth MD Primary Care Provider Encounters Date Type Department Care Team Description 04/19/2025 Transcribe Orders [facility] [address] [place] [address], [address]th [place] [address] Chan Roth MD Greenfield's esophagus with high grade dysplasia (Primary Dx); Gastroparesis from Last 3 Months Social History Tobacco Use Types Packs/Day Years Used Date Smoking Tobacco: Never Assessed Comments Unknown Sex and Gender Information Value Date Recorded Sex Assigned at Female 04/17/2025 1:49 PM EDT Legal Sex Female 1:07 PM EDT Gender Identity Female 04/17/2025 1:49 PM EDT Sexual Orientation Straight 04/17/2025 1: 49 PM EDT Plan of Treatment Not on file Medical Devices Not on file Procedures Procedure Name Priority Date/Time Associated Diagnosis Comments OUTSIDE LAB 04/17/2025 OUTSIDE IMAGING 04/17/2025 OUTSIDE IMAGING 04/17/2025 OUTSIDE PROCEDURE 04/17/2025 from Last 3 Months Results * Outside Imaging Report Only (04/17/2025) us Scanning Interface Provider IMG XR CHEST Deborah l Result * Outside Imaging Report Only (04/17/2025) us Scanning Interface Provider IMG XR CHEST Deborah l Result * Outside Procedure (04/17/2025) us Scanning Interface Provider PROCEDURE/MINOR SURG ICAL PERFORMABLES Final Result * Outside Lab (04/17/2025) us Scanning Interface Provider LAB BLOOD ORDERABLES Final Result from Last 3 Months Insurance [facility] Care Teams Geometry Teacher Relationship Specialty Start Date End Date Chan Roth MD [address] [place] [address] PCP - General Internal Medicine 04/17/25 Additional Source Comments The information contained in this document represents components of the legal health record. It is not the complete legal health record.[facility]
--- OUTSIDE RECORDS SUMMARY | 2025-06-21 13:14 | XMS_ITS | Encounter Summary ---
Author Organization [facility] Address [address] [place] [address] Care Team Providers Care Speeder Machine Operator Name Role Phone Chan Wilson Primary Care Provider [phone] Encounter Details Date Type Department Care Team (Late st Contact Info) Description 11/02/2022 [employer] Message [facility] [employer] Revenue Cycle Management [address] [place] [address] IndaBox, Generic Provider [address] [id number] Payment Plan Social History Tobacco Use Types [...] Department Care Team (Latest Contact Info) Description 09/18/2025 9:30 AM EST Hospital Encounter [facility] [address] [place] [address] Sudheer Hayes MD [address] [place] [address] 09/18/2025 9:30 AM EST - 09/18/2025 10:00 AM EST Surgery [facility] Endoscopy [address] [place] [address] Sudheer Hayes MD [address] [place] [address] UPPER ENDOSCOPY; DIAGNOSTIC WITH BRUSH/WASH (SP) WITH POSSIBLE MODERATE SEDATION [04907 (CPT )] Scheduled Procedures Name Priority Associated Diagnoses Date/Ti me UPPER ENDOSCOPY; DIAGNOSTIC WITH BRUSH/WASH (SP) WITH POSSIBLE MODERATE SEDATION Greenfield's esophagus with high grade dysplasia 09/18/2025 9:30 AM EST documented as of this encounter Visit Diagnoses Not on filedocumented in this encounter Care Teams Speeder Machine Operator Relationship Specialty Start Date End Date Chan Wilson [address] [place] [address] PCP - General Internal Medicine 01/09/20 documented as of this encounter
[2025-06-21 13:47] LABS: Blood Urea Nitrogen 6 mg/dL (9-16); Estimated Glomerular Filt Rate > 60
[2025-06-21] MEDS: iohexoL 350 MG/ML 100 ML INFUS..BTL IV (14:17)
== END 2025-06-21 13:13 | disposition home or self-care (01) ==
LOC: HO.CT 13:12
PROVIDERS: Internal Medicine Gastroenterology; PCP Internal Medicine; Visit Provider Internal Medicine
DX: K57.92 Diverticulitis of intestine, part unspecified, without perforation or abscess without bleeding (principal); E46 Unspecified protein-calorie malnutrition
CPT/HCPCS: 36415; 74177; 82565; 84520; Q9967

== ENCOUNTER → 2025-06-21 13:15 | Outpatient (BNV) | payer OTHER, SELFPAY | PROVIDERS: PCP Internal Medicine; Visit Provider Radiology Diagnostic Radiology | DX: K51.50 Left sided colitis without complications (principal) | CPT/HCPCS: 74177 ==

== ENCOUNTER 2025-10-09 07:57 | Day surgery (SDC) | payer OTHER, SELFPAY ==
--- OUTSIDE RECORDS SUMMARY | 2025-10-04 12:36 | XMS_ITS | Encounter Summary ---
Author Organization [facility] Address [address] [place] [address] Care Team Providers Care Patient Sitter Name Role Phone PettisvilleChan Jane Primary Care Provider [phone] Encounter Details Date Type Department Care Team (Late st Contact Info) Description 11/10/2021 [employer] Message [facility] Endoscopy [address] [place], [place] [phone] Phrazit, Generic Provider [address] [place], [place] [phone] instructions Social History Tobacco Use Types Packs/Day [...] Department Care Team (Latest Contact Info) Description 12/04/2025 12:10 PM EST Hospital Encounter [facility] Endoscopy [address] [place] [address] Sudheer Hayes MD [address] [place] [address] 12/04/2025 12:10 PM EST - 12/04/2025 12:35 PM EST Surgery [facility] Endoscopy [address] [place] [address] Sudheer Hayes MD [address] [place] [address] UPPER ENDOSCOPY; DIAGNOSTIC WITH BRUSH/WASH (SP) WITH POSSIBLE MODERATE SEDATION [90619 (CPT )] Scheduled Procedures Name Priority Associated Diagnoses Date/Ti me UPPER ENDOSCOPY; DIAGNOSTIC WITH BRUSH/WASH (SP) WITH POSSIBLE MODERATE SEDATION Greenfield esophagus with high grade dysplasia 12/04/2025 12:10 PM EST documented as of this encounter Visit Diagnoses Not on filedocumented in this encounter Care Teams Patient Sitter Relationship Specialty Start Date End Date Chan Wilson [address] [place] [phone] PCP - General Internal Medicine 01/09/20 documented as of this encounter
--- OUTSIDE RECORDS SUMMARY | 2025-10-04 12:36 | XMS_ITS | Encounter Summary ---
Author Organization [facility] Address [address] [place] [address] [place] [address] Phone Care Team Providers Care Grinding Machine Operator Portable Name Role Phone Chan Roth MD Primary Care Provider Encounter Details Date Type Department Care Team ([facility] st Contact Info) Description 10/01/2025 Telephone [facility] [address] [place] [address], 5th [place] [address] Navin Abdi MD, MPH [address] [place] [phone] [email or web address] Social History Tobacco Use Types Packs/Day Years Used Date Smoking Tobacco: Never Assessed Education Answer Date Recorded Are you interested in more education? Not on rosa e 08/05/2025 Are you concerned about learning? Not on file 08/05/2025 No 08/05/2025 No 08/05/2025 Digital Access Answer Date Recorded No 08/05/2025 No 08/05/2025 Reliable internet access at home? Not on file 08/05/2025 Device with a working camera? Not on file Comments Unknown Sex and Gender Information Value Date Recorded Sex Assigned at Female 04/17/2025 1:49 PM EDT Legal Sex Female 1:07 PM EDT Gender Identity Female 04/17/2025 1:49 PM EDT Sexual Orientation Straight 04/17/2025 1: 49 PM EDT documented as of this encounter Progress Notes * Page Vanegas RN - 10/04/2025 11:01 AM EST 10/04/25 11:[address] Parrish from the insurance company for peer to peer review. WE spoke about her case, he did say he can support doing a CT scan. He will try to get this approved. He said he did approve it, authorization #[id number]. That is valid 10/04/25- 12/03/25 for peer to peer. ID # [id number] Called [facility] back to let them know the CT scan is approved. PT will get scan on 10/06/25. * Page Vanegas RN - 10/04/2025 9:53 AM EST 10/04/25 9:53 AM Called [facility] to start peer to peer review, using case# [id number]. Dr. Fried at 11am. The physician will call me on my direct line at that time. I will have clinical information available to me * Page Vanegas RN - 10/04/2025 9:36 AM EST 10/04/25 9:37 AM Spoke with [facility], they said they sent a message to pt on 09/25. Then they called on 09/27 to let themknow they still need a peer to peer. They didn't approve because they want the imaging down after a scope (EGD). Asked if she can get itapproved for lung cancer screening. She said I can call: [employer] at [phone] to try a peer to peer. ID # [id number] for [employer]. for CPT-98409. 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 Spoke with her at length, she tried to submit the request again while I was on the phone with her. New case #- [id number]. Will use this new number for the peer to peer. Then will call back [phone] ext [phone] * Page Vanegas RN - 10/02/2025 9:53 AM EST 10/02/25 9:53 AM Returned pt's call to let them know we did not receive any information regarding this. Want to ask if she has a phone number we can call for the peer to peer review. No answer, left message to call us back with a phone number for the peer to peer review, or to have her call the radiology departmentat [facility] to see if they have already sent in for the PA for her CT scan. * Elizabeth Montanez - 10/01/2025 10:02 AM EST Pt has a ct on 10/06 that needs a peer to peer. documented in this encounter Plan of Treatment Upcoming Encounters Date Type Department Care Team (Late st Contact Info) Description 09/05/2025 Procedure Pass [address] [id number] 10/06/2025 10:30 AM EST Appointment [facility] [address] [address] Navin Abdi MD, MPH [address] [place] [address] [email or web address] 12/19/2025 4:00 PM EST Telemedicine [facility] [address] [place] [address], 5th [place] [address] Navin Abdi MD, MPH [address] [place] [address] [email or web address] documented as of this encounter Visit Diagnoses Not on filedocumented in this encounter Care Teams Grinding Machine Operator Portable Relationship Specialty Start Date End Date Chan Roth MD [address] [place] [address] PCP - General Internal Medicine 04/17/25 documented as of this encounter Additional Source Comments The information contained in this document represents components of the legal health record. It is not the complete legal health record.[facility]
--- OUTSIDE RECORDS SUMMARY | 2025-10-04 12:36 | XMS_ITS | Encounter Summary ---
Author Organization [facility] Address [address] [place] [address] Care Team Providers Care Apprentice Pattern Maker Name Role Phone Chan [place] Primary Care Provider [phone] Encounter Details Date Type Department Care Team (Late st Contact Info) Description 09/16/2023 [employer] Message [facility] Provender Revenue Cycle Management [address] [place] [address] [employer], Generic Provider [address] [phone] pay plan Social History Tobacco Use Types [...] Description 12/04/2025 12:10 PM EST Hospital Encounter [facility] Endoscopy [address] [place] [address] Sudheer Hayes MD [address] [place] [address] 12/04/2025 12:10 PM EST - 12/04/2025 12:[address] [facility] Endoscopy [address] [place] [address] Sudheer Hayes MD [address] [place] [address] UPPER ENDOSCOPY; DIAGNOSTIC WITH BRUSH/WASH (SP) WITH POSSIBLE MODERATE SEDATION [02128 (CPT )] Scheduled Procedures Name Priority Associated Diagnoses Date/Ti me UPPER ENDOSCOPY; DIAGNOSTIC WITH BRUSH/WASH (SP) WITH POSSIBLE MODERATE SEDATION [place] esophagus with high grade dysplasia 12/04/2025 12:10 PM EST documented as of this encounter Visit Diagnoses Not on filedocumented in this encounter Care Teams Apprentice Pattern Maker Relationship Specialty Start Date End Date Chan [place] [address] [place] [address] PCP - General Internal Medicine 01/09/20 documented as of this encounter
--- OUTSIDE RECORDS SUMMARY | 2025-10-04 12:36 | XMS_ITS | Encounter Summary ---
Author Organization [facility] Address [address] [place] [address] Care Team Providers Care Family Development Extension Specialist Name Role Phone JunturaChan shah Primary Care Provider [phone] Encounter Details Date Type Department Care Team (Late st Contact Info) Description 09/15/2025 Pay with a Tweet Message Intial Department [address] [place] [address] [employer], Generic Provider [facility] [address] [phone] Questionnaire Submission Social History Tobacco Use Types Packs/Day Years Used Date Smoking Tobacco: Never Smokeless Tobacco: Never Alcohol Use Standard Drinks/Week Comments Yes 0 (1 standard drink = 0.6 oz pur e alcohol) SOCIALLY 1/wk Hunger Vital Sign Answer Date Recorded Within the past 12 months, y ou worried that your food would run out before you got the money to buy more. Never true 09/18/20 25 Within the past 12 months, t he food you bought just didn't last and you didn't have money to get more. Never true 09/18/2025 Comments No Sex and Gender Information Value Date Recorded Sex Assigned at Female 12/02/2020 12:19 AM EST Legal Sex Female 8:28 AM EST Gender Identity Female 12/02/2020 12:19 AM EST Sexual Orientation Straight 07/30/2020 9: 05 AM EDT documented as of this encounter Plan of Treatment Upcoming Encounters Date Type Department Care Team (Latest Contact Info) Description 12/04/2025 12:10 PM EST Hospital Encounter [facility] Endoscopy [address] [place] [address] Sudheer Hayes MD [address] [place] [address] 12/04/2025 12:10 PM EST - 12/04/2025 12:35 PM EST Surgery [facility] Endoscopy [address] [place] [address] Sudheer Hayes MD [address] [place] [address] UPPER ENDOSCOPY; DIAGNOSTIC WITH BRUSH/WASH (SP) WITH POSSIBLE MODERATE SEDATION [96628 (CPT )] Scheduled Procedures Name Priority Associated Diagnoses Date/Ti me UPPER ENDOSCOPY; DIAGNOSTIC WITH BRUSH/WASH (SP) WITH POSSIBLE MODERATE SEDATION [place] esophagus with high grade dysplasia 12/04/2025 12:10 PM EST documented as of this encounter Visit Diagnoses Not on filedocumented in this encounter Care Teams Family Development Extension Specialist Relationship Specialty Start Date End Date Chan [place] [address] [place] [address] PCP - General Internal Medicine 01/09/20 documented as of this encounter
--- OUTSIDE RECORDS SUMMARY | 2025-10-04 12:36 | XMS_ITS | Encounter Summary ---
Author Organization [facility] Address [address] [place] [address] Care Team Providers Care Gold Reclaimer Name Role Phone Chan [place] Primary Care Provider [phone] Encounter Details Date Type Department Care Team (Late st Contact Info) Description 09/26/2023 [employer] Message [facility] [employer] Revenue Cycle Management [address] [place] [address] [employer], Generic Provider [address] [phone] payment plan Social History Tobacco Use Types [...] Description 12/04/2025 12:10 PM EST Hospital Encounter [facility] Endoscopy [address] [place] [address] Suhdeer Hayes MD [address] [place] [address] 12/04/2025 12:10 PM EST - 12/04/2025 12:35 PM EST Surgery [facility] Endoscopy [address] [place] [address] Sudheer Hayes MD [address] [place] [address] UPPER ENDOSCOPY; DIAGNOSTIC WITH BRUSH/WASH (SP) WITH POSSIBLE MODERATE SEDATION [60904 (CPT )] Scheduled Procedures Name Priority Associated Diagnoses Date/Ti me UPPER ENDOSCOPY; DIAGNOSTIC WITH BRUSH/WASH (SP) WITH POSSIBLE MODERATE SEDATION [place] esophagus with high grade dysplasia 12/04/2025 12:10 PM EST documented as of this encounter Visit Diagnoses Not on filedocumented in this encounter Care Teams Gold Reclaimer Relationship Specialty Start Date End Date Chan [place] [address] [place] [address] PCP - General Internal Medicine 01/09/20 documented as of this encounter
--- OUTSIDE RECORDS SUMMARY | 2025-10-04 12:36 | XMS_ITS | Encounter Summary ---
Author Organization [facility] Address [address] [place] [address] Care Team Providers Care Incinerator Operator Name Role Phone Chan [place] Primary Care Provider [phone] Encounter Details Date Type Department Care Team (Late st Contact Info) Description 06/26/2021 Orders Only [facility] Interventional Radiology [address] [place] [address] Kirill Schuster MD [address] [place] [address] Social History Tobacco Use Types Packs/Day Years [...] Description 12/04/2025 12:10 PM EST Hospital Encounter [facility] Endoscopy [address] [place] [address] Sudheer Hayes MD [address] [place] [address] 12/04/2025 12:10 PM EST - 12/04/2025 12:35 PM EST Surgery [facility] Endoscopy [address] [place] [address] Sudheer Hayes MD [address] [place] [address] UPPER ENDOSCOPY; DIAGNOSTIC WITH BRUSH/WASH (SP) WITH POSSIBLE MODERATE SEDATION [31146 (CPT )] Scheduled Procedures Name Priority Associated Diagnoses Date/Ti me UPPER ENDOSCOPY; DIAGNOSTIC WITH BRUSH/WASH (SP) WITH POSSIBLE MODERATE SEDATION [place] esophagus with high grade dysplasia 12/04/2025 12:10 PM EST documented as of this encounter Visit Diagnoses Not on filedocumented in this encounter Care Teams Incinerator Operator Relationship Specialty Start Date End Date Chan [place] [address] [place] [address] PCP - General Internal Medicine 01/09/20 documented as of this encounter
--- OUTSIDE RECORDS SUMMARY | 2025-10-04 12:36 | XMS_ITS | Encounter Summary ---
Author Organization [facility] Address [address] [place] [address] Care Team Providers Care Vp Corporate Development Name Role Phone Chan [place] Primary Care Provider [phone] Encounter Details Date Type Department Care Team (Late st Contact Info) Description 11/02/2022 [employer] Message [facility] [employer] Revenue Cycle Management [address] [place] [address] [email or web address], Generic Provider [address] [phone] Payment Plan Social History Tobacco Use Types [...] Description 12/04/2025 12:10 PM EST Hospital Encounter [facility] Endoscopy [address] [place] [address] Sudheer Hayes MD [address] [place] [address] 12/04/2025 12:10 PM EST - 12/04/2025 12:35 PM EST Surgery [facility] Endoscopy [address] [place] [address] Sudheer Hayes MD [address] [place] [address] UPPER ENDOSCOPY; DIAGNOSTIC WITH BRUSH/WASH (SP) WITH POSSIBLE MODERATE SEDATION [01793 (CPT )] Scheduled Procedures Name Priority Associated Diagnoses Date/Ti me UPPER ENDOSCOPY; DIAGNOSTIC WITH BRUSH/WASH (SP) WITH POSSIBLE MODERATE SEDATION [place] esophagus with high grade dysplasia 12/04/2025 12:10 PM EST documented as of this encounter Visit Diagnoses Not on filedocumented in this encounter Care Teams Vp Corporate Development Relationship Specialty Start Date End Date Chan [place] [address] [place] [address] PCP - General Internal Medicine 01/09/20 documented as of this encounter
--- OUTSIDE RECORDS SUMMARY | 2025-10-04 12:36 | XMS_ITS | Encounter Summary ---
Author Organization [facility] Address [address] [place] [address] Care Team Providers Care Fish Skinning Machine Feeder Name Role Phone OcontoChan shah Primary Care Provider [phone] Encounter Details Date Type Department Care Team (Late st Contact Info) Description 06/26/2021 Orders Only [facility] Interventional Radiology [address] [place] [address] Jovana [place] MD [address] [place] [address] Social History Tobacco Use Types Packs/Day Years [...] Description 12/04/2025 12:10 PM EST Hospital Encounter [facility] Endoscopy [address] [place] [address] Sudheer Hayes MD [address] [place] [address] 12/04/2025 12:10 PM EST - 12/04/2025 12:35 PM EST Surgery [facility] Endoscopy [address] [place] [address] Sudheer Hayes MD [address] [place] [address] UPPER ENDOSCOPY; DIAGNOSTIC WITH BRUSH/WASH (SP) WITH POSSIBLE MODERATE SEDATION [11566 (CPT )] Scheduled Procedures Name Priority Associated Diagnoses Date/Ti me UPPER ENDOSCOPY; DIAGNOSTIC WITH BRUSH/WASH (SP) WITH POSSIBLE MODERATE SEDATION [place] esophagus with high grade dysplasia 12/04/2025 12:10 PM EST documented as of this encounter Visit Diagnoses Not on filedocumented in this encounter Care Teams Fish Skinning Machine Feeder Relationship Specialty Start Date End Date Chan [place] [address] [place] [address] PCP - General Internal Medicine 01/09/20 documented as of this encounter
--- OUTSIDE RECORDS SUMMARY | 2025-10-04 12:36 | XMS_ITS | Encounter Summary ---
Author Organization [facility] Address [address] [place] [address] Care Team Providers Care Blasting Miner Name Role Phone Chan [place] Primary Care Provider [phone] Encounter Details Date Type Department Care Team (Late st Contact Info) Description 09/20/2024 [employer] Message [facility] [employer] Revenue Cycle Management [address] [place] [address] [employer], Generic Provider [address] [phone] payment plan Social History Tobacco Use Types [...] Description 12/04/2025 12:10 PM EST Hospital Encounter [facility] Endoscopy [address] [place] [address] Sudheer Hayes MD [address] [place] [address] 12/04/2025 12:10 PM EST - 12/04/2025 12:35 PM EST Surgery [facility] Endoscopy [address] [place] [address] Sudheer Hayes MD [address] [place] [address] UPPER ENDOSCOPY; DIAGNOSTIC WITH BRUSH/WASH (SP) WITH POSSIBLE MODERATE SEDATION [65559 (CPT )] Scheduled Procedures Name Priority Associated Diagnoses Date/Ti me UPPER ENDOSCOPY; DIAGNOSTIC WITH BRUSH/WASH (SP) WITH POSSIBLE MODERATE SEDATION [place] esophagus with high grade dysplasia 12/04/2025 12:10 PM EST documented as of this encounter Visit Diagnoses Not on filedocumented in this encounter Care Teams Blasting Miner Relationship Specialty Start Date End Date Chan [place] [address] [place] [address] PCP - General Internal Medicine 01/09/20 documented as of this encounter
--- OUTSIDE RECORDS SUMMARY | 2025-10-04 12:36 | XMS_ITS | Encounter Summary ---
Author Organization [facility] Address [address] [place] [address] Care Team Providers Care Branch Operation Evaluation Manager Name Role Phone Santa ClausChan Jane Primary Care Provider [phone] Encounter Details Date Type Department Care Team (Late st Contact Info) Description 11/10/2021 [employer] Message [facility] Endoscopy [address] [place] [address] [employer] SearchharAlexis Bittar, Generic Provider [address] [place], [place] [phone] appointment information Social History Tobacco Use Types [...] Description 12/04/2025 12:10 PM EST Hospital Encounter [facility] Endoscopy [address] [place] [address] Sudheer Hayes MD [address] [place] [address] 12/04/2025 12:10 PM EST - 12/04/2025 12:35 PM EST Surgery [facility] Endoscopy [address] [place] [address] Sudheer Hayes MD [address] [place] [address] UPPER ENDOSCOPY; DIAGNOSTIC WITH BRUSH/WASH (SP) WITH POSSIBLE MODERATE SEDATION [66495 (CPT )] Scheduled Procedures Name Priority Associated Diagnoses Date/Ti me UPPER ENDOSCOPY; DIAGNOSTIC WITH BRUSH/WASH (SP) WITH POSSIBLE MODERATE SEDATION [place] esophagus with high grade dysplasia 12/04/2025 12:10 PM EST documented as of this encounter Visit Diagnoses Not on filedocumented in this encounter Care Teams Branch Operation Evaluation Manager Relationship Specialty Start Date End Date Chan [place] [address] [place] [address] PCP - General Internal Medicine 01/09/20 documented as of this encounter
--- OUTSIDE RECORDS SUMMARY | 2025-10-04 12:36 | XMS_ITS | Encounter Summary ---
Author Organization [facility] Address [address] [place] [address] Care Team Providers Care Barber Shop Manager Name Role Phone Chan [place] Primary Care Provider [phone] Encounter Details Date Type Department Care Team (Late st Contact Info) Description 09/08/2024 [employer] Message Intial Department [address] [place] [address] [employer], Generic Provider [address] [place], [place] [phone] Questionnaire Submission Social History Tobacco Use Types [...] Description 12/04/2025 12:10 PM EST Hospital Encounter [facility] Endoscopy [address] [place] [address] Sudheer Hayes MD [address] [place], [place] [phone] 12/04/2025 12:10 PM EST - 12/04/2025 12:35 PM EST Surgery [facility] Endoscopy [address] [place] [address] Sudheer Hayes MD [address] [place] [address] UPPER ENDOSCOPY; DIAGNOSTIC WITH BRUSH/WASH (SP) WITH POSSIBLE MODERATE SEDATION [69585 (CPT )] Scheduled Procedures Name Priority Associated Diagnoses Date/Ti me UPPER ENDOSCOPY; DIAGNOSTIC WITH BRUSH/WASH (SP) WITH POSSIBLE MODERATE SEDATION [place] esophagus with high grade dysplasia 12/04/2025 12:10 PM EST documented as of this encounter Visit Diagnoses Not on filedocumented in this encounter Care Teams Barber Shop Manager Relationship Specialty Start Date End Date Chan [place] [address] [place] [address] PCP - General Internal Medicine 01/09/20 documented as of this encounter
--- OUTSIDE RECORDS SUMMARY | 2025-10-04 12:37 | XMS_ITS | Encounter Summary ---
Author Organization [facility] Address [address] [place] [address] Care Team Providers Care After School Program Teacher Name Role Phone Chan [place] Primary Care Provider [phone] Encounter Details Date Type Department Care Team (Late st Contact Info) Description 08/01/2023 Layer Message [facility] [employer] Revenue Cycle Management [address] [place] [address] [employer], Generic Provider [address] [phone] payment plan Social History Tobacco Use Types [...] Description 12/04/2025 12:10 PM EST Hospital Encounter [facility] Endoscopy [address] [place] [address] Sudheer Hayes MD [address] [place] [address] 12/04/2025 12:10 PM EST - 12/04/2025 12:35 PM EST Surgery [facility] Endoscopy [address] [place] [address] Sudheer Hayes MD [address] [place] [address] UPPER ENDOSCOPY; DIAGNOSTIC WITH BRUSH/WASH (SP) WITH POSSIBLE MODERATE SEDATION [40217 (CPT )] Scheduled Procedures Name Priority Associated Diagnoses Date/Ti me UPPER ENDOSCOPY; DIAGNOSTIC WITH BRUSH/WASH (SP) WITH POSSIBLE MODERATE SEDATION [place] esophagus with high grade dysplasia 12/04/2025 12:10 PM EST documented as of this encounter Visit Diagnoses Not on filedocumented in this encounter Care Teams After School Program Teacher Relationship Specialty Start Date End Date Chan [place] [address] [place] [address] PCP - General Internal Medicine 01/09/20 documented as of this encounter
--- OUTSIDE RECORDS SUMMARY | 2025-10-04 12:37 | XMS_ITS | Encounter Summary ---
Author Organization [facility] Address [address] [place] [address] Care Team Providers Care Business Development Officer Name Role Phone Chan [place] Primary Care Provider [phone] Encounter Details Date Type Department Care Team (Late st Contact Info) Description 08/24/2023 [employer] Message [facility] [employer] Revenue Cycle Management [address] [place] [address] [employer], Generic Provider [address] [phone] pay plan Social History Tobacco Use Types [...] Description 12/04/2025 12:10 PM EST Hospital Encounter [facility] Endoscopy [address] [place] [address] Sudheer Hayes MD [address] [place] [address] 12/04/2025 12:10 PM EST - 12/04/2025 12:35 PM EST Surgery [facility] Endoscopy [address] [place] [address] Sudheer Hayes MD [address] [place] [address] UPPER ENDOSCOPY; DIAGNOSTIC WITH BRUSH/WASH (SP) WITH POSSIBLE MODERATE SEDATION [54203 (CPT )] Scheduled Procedures Name Priority Associated Diagnoses Date/Ti me UPPER ENDOSCOPY; DIAGNOSTIC WITH BRUSH/WASH (SP) WITH POSSIBLE MODERATE SEDATION [place] esophagus with high grade dysplasia 12/04/2025 12:10 PM EST documented as of this encounter Visit Diagnoses Not on filedocumented in this encounter Care Teams Business Development Officer Relationship Specialty Start Date End Date Chan [place] [address] [place] [address] PCP - General Internal Medicine 01/09/20 documented as of this encounter
--- OUTSIDE RECORDS SUMMARY | 2025-10-04 12:37 | XMS_ITS | Encounter Summary ---
Author Organization [facility] Address [address] [place] [address] Care Team Providers Care Molding Machine Operator Helper Name Role Phone Chan Wilson Primary Care Provider [phone] Encounter Details Date Type Department Care Team (Late st Contact Info) Description 12/19/2024 [employer] Message [facility] [employer] Management [address] [place] [address] Assembla, Generic Provider [address] [phone] payment plan Social History Tobacco Use Types [...] Description 12/04/2025 12:10 PM EST Hospital Encounter [facility] Endoscopy [address] [place] [address] Sudheer Hayes MD [address] [place] [address] 12/04/2025 12:10 PM EST - 12/04/2025 12:35 PM EST Surgery [facility] Endoscopy [address] [place] [address] Sudheer Hayes MD [address] [place] [address] UPPER ENDOSCOPY; DIAGNOSTIC WITH BRUSH/WASH (SP) WITH POSSIBLE MODERATE SEDATION [20422 (CPT )] Scheduled Procedures Name Priority Associated Diagnoses Date/Ti me UPPER ENDOSCOPY; DIAGNOSTIC WITH BRUSH/WASH (SP) WITH POSSIBLE MODERATE SEDATION Greenfield esophagus with high grade dysplasia 12/04/2025 12:10 PM EST documented as of this encounter Visit Diagnoses Not on filedocumented in this encounter Care Teams Molding Machine Operator Helper Relationship Specialty Start Date End Date Chan Wilson [address] [place] [address] PCP - General Internal Medicine 01/09/20 documented as of this encounter
--- OUTSIDE RECORDS SUMMARY | 2025-10-04 12:37 | XMS_ITS | Encounter Summary ---
Author Organization [facility] Address [address] [place] [address] Care Team Providers Care Priming Mixture Carrier Name Role Phone Chan Wilson Primary Care Provider [phone] Encounter Details Date Type Department Care Team (Late st Contact Info) Description 11/14/2024 [employer] Message [facility] [employer] Revenue Cycle Management [address] [place] [address] Voovio aka [employer], Generic Provider [address] [phone] payment plan Social History Tobacco Use Types [...] Description 12/04/2025 12:10 PM EST Hospital Encounter [facility] Endoscopy [address] [place] [address] Sudheer Hayes MD [address] [place] [address] 12/04/2025 12:10 PM EST - 12/04/2025 12:35 PM EST Surgery [facility] Endoscopy [address] [place] [address] Sudheer Hayes MD [address] [place] [address] UPPER ENDOSCOPY; DIAGNOSTIC WITH BRUSH/WASH (SP) WITH POSSIBLE MODERATE SEDATION [05085 (CPT )] Scheduled Procedures Name Priority Associated Diagnoses Date/Ti me UPPER ENDOSCOPY; DIAGNOSTIC WITH BRUSH/WASH (SP) WITH POSSIBLE MODERATE SEDATION Greenfield esophagus with high grade dysplasia 12/04/2025 12:10 PM EST documented as of this encounter Visit Diagnoses Not on filedocumented in this encounter Care Teams Priming Mixture Carrier Relationship Specialty Start Date End Date Chan Wilson [address] [place] [id number] PCP - General Internal Medicine 01/09/20 documented as of this encounter
--- OUTSIDE RECORDS SUMMARY | 2025-10-04 12:37 | XMS_ITS | Clinical Summary ---
Author Organization [facility] Address [address] [place] [address] Care Team Providers Care Fire Alarm Repairer Name Role Phone Chan Wilson Primary Care Provider [phone] Allergies Active Allergy Reactions Criticality Noted Date Comments Oxycodone Itching,Agitation 12/03/2024 Oxycodone-Acetaminophen Itching 01/09/2020 Pt is NOT allergic to Tylenol. Only to Oxycodone. Medications LORazepam (ATIVAN) 1 mg tablet Take [...] 137 mcg (0.1 %) nasal spray [employer] [place](s) Both Nares Twice Daily 4 Active multivit-min/fe rrous fumarate (MULTI VITAMIN ORAL) 0 Refills, Maintenance, 02/24/24 16:20:00 EDT, Partial fill upon patient request if the prescription is for a schedule II opioid drug. [address] (PROTONIX) 40 mg tablet Take 1 tablet (40 mg total) by mouth once a day. 90 tablet 3 4 Active Additional Information Patient taking differently:40 mg oral2 times daily, Reported on 03/18/2025 sucralfate (CARAFATE) 1 gram tablet Take 1 tablet (1 g total) by mouth 4 times a day. 120 tablet Active amoxicillin-cla vulanate (AUGMENTIN) 400-57 mg chewable tablet Chew and swallow 800 mg by mouth 2 times a day. Active FLUoxetine (PROzac) 40 mg capsule Take 40 mg by mouth once a day. 4 Active prucalopride succinate (PRUCALOPRIDE ORAL) Take 2 1 SS tablet by mouth once a day. Active Active [...] Encounters Date Type Department Care Team Description 09/18/2025 10:11 AM EST Anesthesia Event [facility] Endoscopy [address] [place] [address] Jose Soni MD Moschella, Mark A, MD 09/18/2025 9:30 AM EST - 09/18/2025 10:00 AM EST Surgery [facility] Endoscopy [address] [place] [address] Sudheer Hayse MD UPPER ENDOSCOPY; DIAGNOSTIC WITH BRUSH/WASH (SP) WITH POSSIBLE MODERATE SEDATION [45737 (CPT )] 09/18/2025 8:12 AM EST - 09/18/2025 11:36 AM EST Hospital Encounter [facility] Endoscopy [address] [place] [address] Sudheer Hayes MD Greenfield's esophagus with high grade dysplasia Discharge Disposition: Home or Self Care (01) 09/15/2025 myChart Message Intial Department [address] [place] [address] Mychart, Generic Provider Questionnaire Submission from Last 3 Months Immunizations Immunization Administration Dates Next Due Covid-19, Pfizer, mRNA, Moca valent, PF 30 mcg/0.3 mL dose (for [...] Sign Reading Time Taken Comments Blood Pressure 124/70 09/18/2025 11:13 AM EST Pulse 85 09/18/2025 11:13 AM EST Temperature 36.1 C (96.9 F) 09/18/2025 10:53 AM EST Respiratory Rate 16 09/18/2025 11:13 AM EST Oxygen Saturation 95% 09/18/2025 11:13 AM EST Inhaled Oxygen Concentration - - Weight 82.6 kg (182 lb) 09/18/2025 8:47 AM EST Height 144.8 cm (4' 9 ) 09/18/2025 8:47 AM EST Body Mass Index 39.38 09/18/2025 8:47 AM EST Plan of Treatment Upcoming Encounters Date Type Department Care Team (Latest Contact Info) Description 12/04/2025 12:10 PM EST Hospital Encounter [facility] Endoscopy [address] [place] [address] Sudheer Hayes MD [address] [place] [address] 12/04/2025 12:10 PM EST - 12/04/2025 12:35 PM EST Surgery [facility] Endoscopy [address] [place] [address] Sudheer Hayes MD [address] [place] [address] UPPER ENDOSCOPY; DIAGNOSTIC WITH BRUSH/WASH (SP) WITH POSSIBLE MODERATE SEDATION [01019 (CPT )] Scheduled Procedures Name Priority Associated Diagnoses Date/Ti me UPPER ENDOSCOPY; DIAGNOSTIC WITH BRUSH/WASH (SP) WITH POSSIBLE MODERATE SEDATION Greenfield esophagus with high grade dysplasia 12/04/2025 12:10 PM EST Health Maintenance Due Date Last Done Comments Cervical Cancer Screening 1970 HIV Screening 1970 HPV and Pap Smear 1969 Hepatitis C Screening 1969 Pap Smear 1969 Hepatitis B Vaccines (1 of 3 - 19+ 3-dose series) 1988 DTaP,Tdap,and Td Vaccines (1 - Tdap) 1991 Mammogram 2009 Pneumococcal Vaccine: 50+ Ye ars (1 of 1 - PCV) 2019 Zoster Vaccines (1 of 2) 2019 Alcohol/Substance Use Screening 10/31/2024 Depression Screening and Follow-Up 10/31/2024 Social Drivers of Health Bree ual Screening 10/31/2024 Influenza Vaccine (#1) 2025 4, 10/15/2022, 08/20/2021, Additional history exists COVID-19 Vaccine (2024-2 6 season) 2025 12/12/2021, 02/06/2021, 01/16/2021 Diabetes Screening 09/18/2027 09/18/2024 Colonoscopy 12/01/2027 12/01/2022, 12/01/2022 Goals Goal Patient Goal Type Associated Problems Recent Progress Patient-Stated? Author Autogenerat ed Goal Care Plan Autogenerated Problem No Kiara Klein Procedures * Due to [place] [employer] law, this organization might not be sharing negative HIV tests. Procedure Name Priority Date/Time Associated Diagnosis Comments TISSUE EXAM Routine 09/18/2025 10:34 AM EST Greenfield's esophagus with high grade dysplasia LA ESOPHAGOGASTRODUODENOSCOP Y TRANSORAL DIAGNOSTIC 09/18/2025 10:13 AM EST Greenfield's esophagus with high grade dysplasia UPPER GI ENDOSCOPY 09/18/2025 POCT GLUCOSE Routine 09/18/2024 4:34 PM EST COLONOSCOPY 12/01/2022 from Last 3 Months or Most Recently Relevant to Health Maintenance Results * Due to [place] [employer] law, this organization might not be sharing negative HIV tests. * Tissue Exam (09/18/2025 10:34 AM EST) Final Diagnosis Specimen #1 - Esophagus (at 33 cm), Biopsy: - Squamous epithelium with high grade dysplasia. - Multiple levels were examined. Specimen #2 - Esophagus (at 30 cm), Biopsy: - Squamous mucosa, within normal limits. Specimen #3 - Esophagus (at 28 cm), Biopsy: - Squamous mucosa, within normal limits. Specimen #4 - Esophagus (at 25 cm), Biopsy: - Squamous epithelium within normal limits. [facility] 09/20/2025 3:15 PM EST [facility] at 1514 EST Clinical History Pre-op diagnosis: Greenfield's esophagus with high grade dysplasia [K22.711] [facility] MANUAL 09/20/2025 3:15 PM EST [facility] Gross Description 1. Esophagus The specimen is received in formalin labeled with the patients name, MRN, date of and esophagus BX 33 cm and consists of 3 white-pink irregular soft tissue fragments ranging in size from 0.3 x 0.1 x 0.1 cm to 0.7 x 0.2 x 0.1 cm, filtered and entirely submitted in cassette 1A. 2. Esophagus The specimen is received in formalin labeled with the patients name, MRN, date of and esophagus BX at 30 cm jar 2 and consists of 6 white irregular soft tissue fragments ranging in size from 0.1 x 0.1 x 0.1 cm to 0.8 x 0.2 x 0.1 cm, filtered and entirely submitted in cassette 2A. 3. Esophagus The specimen is received in formalin labeled with the patients name, MRN, date of and esophagus BX 28 cm jar 3 and consists of 4 white irregular soft tissue fragments ranging in size from 0.1 x 0.1 x 0.1 cm to 0.7 x 0.2 x 0.1 cm, filtered and entirely submitted in cassette 3A. 4. Esophagus The specimen is received in formalin labeled with the patients name, MRN, date of and esophagus BX 25 cm jar 4 and consists of 3 white irregular soft tissue fragments ranging in size from 0.4 x 0.1 x 0.1 cm to 0.5 x 0.1 x 0.1 cm, filtered and entirely submitted in cassette 4A. [facility] MANUAL 09/20/2025 3:15 PM EST [facility] Gross Description User Grossing complete by Mechelle Dacosta on 09/18/2025 1:14 PM [facility] MANUAL 09/20/2025 3:15 PM EST [facility] Embedded Images [facility] MAN[facility] 09/20/2025 3:15 PM EST [facility] Resulting Agency Case was signed out at [facility], Department of Pathology, [facility] CLIA [id number] [facility] MANUAL 09/20/2025 3:15 PM EST [facility] Report Header Surgical Pathology Report Case: [id number] Authorizing Provider: Sudheer Hayes MD Collected: 09/18/2025 1034 Ordering Location: [facility] Received: 09/18/2025 [facility] Endoscopy Pathologist: Stacey Carrington MD Specimens: 1) - Esophagus, esophagus bx 33 cm 2) - Esophagus, esophagus bx 30 cm Jar 2 3) - Esophagus, esophagus bx 28 cm jar 3 4) - Esophagus, esophagus bx 25 cm Jar 4 09/20/2025 3:15 PM EST [facility] Tissue Esophageal structure / Unknown 09/18/2025 10:34 AM EST 09/18/2025 12:38 PM EST Comment:Pre-op diagnosis: Greenfield's esophagus with high grade dysplasia [K22.711] Tissue specimen (specimen) Esophageal structure / Unknown 09/18/2025 10:36 AM EST 09/18/2025 12:38 PM EST Comment:Pre-op diagnosis: Greenfield's esophagus with high grade dysplasia [K22.711] Tissue specimen (specimen) Esophageal structure / Unknown 09/18/2025 10:37 AM EST 09/18/2025 12:38 PM EST Comment:Pre-op diagnosis: Greenfield's esophagus with high grade dysplasia [K22.711] Tissue specimen (specimen) Esophageal structure / Unknown 09/18/2025 10:39 AM EST 09/18/2025 12:38 PM EST Comment:Pre-op diagnosis: Greenfield's esophagus with high grade dysplasia [K22.711] us Sudheer Hayes MD LAB PATHOLOGY/CYTOLOGY ORDERAB LES Final Result [facility] [address] [place] [address], * UPPER GI ENDOSCOPY (09/18/2025) Narrative Procedure Note Sudheer Hayes MD - 09/18/2025 10:13 AM EST [facility] Gastroenterology Patient Name: Raymond Boucher Procedure Date: 09/18/2025 10:13AM Date of : 1970 Admit Type: Outpatient Age: 54 Room: [place] [address] Gender: Female Note Status: Finalized Attending MD: Sudheer Hayes MD, Procedure: Upper GI endoscopy Indications: Squamous high grade dysplasia surviellance; s/p multiple ablations,s/p multiple cryotherapy; s/p esophageal stricture post cryo; s/pdilation. Providers: Sudheer Hayes MD Referring MD: Chan Roth MD (Referring MD) Requesting Provider: Medicines: Monitored Anesthesia [...] The patienttolerated the procedure well. Findings: The examined esophagus was normal. Biopsies were taken with a cold forceps for histology from 25, 28, 30 33 cm. G-E junction at 34 cm. Verification of patient identification for the specimen was done. A medium-sized hiatal hernia was present. The examined duodenum was normal. Impression: - Normal esophagus. Biopsied. - Medium-sized hiatal hernia. - Normal examined duodenum. Recommendation: - Await pathology results. - Telephone endoscopist for pathology results in 1 week. - Return to referring provider (date not yet determined). - Repeat upper endoscopy in 3 months forsurveillance. Sudheer Hayes MD 09/18/2025 10:45:21 AM This report has been signed electronically. Number of Addenda: 0 Note Initiated On: 09/18/2025 10:13 AM us Sudheer Hayes MD PROVATION PROCEDURES Final Res ult * POCT Glucose, interfaced (09/18/2024 4:34 PM EST) Glucose, POCT 80 70 - 99 mg/dL 09/18/2024 4:36 PM EST [facility] Comment: The channel account manager has not determined the efficacy of this test in Critically ill patients. [facility] defines Critically ill patients for the purpose of blood glucose monitoring (BGM) by glucometer, as patients meeting one or more of the following criteria: Hypotension- non-ICU patients (systolic blood pressure Less than 90 mmHg) due to shock Hypotension -ICU patients (Mean Arterial Pressure (MAP) <60 mmHg or systolic blood pressure < 90 mmHg due to shock Patients receiving Vasopressors (phenylephrine, vasopressin or norepinephrine) Anasarca In all locations, BGM test results should not be relied upon in the above situations, unless these results confirmed with lab-based glucose values. Blood 09/18/2024 4:34 PM EST 09/18/2024 4:36 PM EST us Sudheer Hayes MD LAB POCT ORDERABLES - DEVICE F inal Result [facility], POC [address] [place] [address], * COLONOSCOPY (12/01/2022) Narrative Procedure Note Sudheer Hayes MD - 12/01/2022 11:28 AM EST [facility] Endoscopy - [address] [place] [address] Patient Name: Raymond Boucher Procedure Date: 12/01/2022 11:28 AM Date of : 1970 Admit Type: Outpatient Age: 51 Room: [facility] 02 Gender: Female Note Status: Finalized [...] Problems Noted Date Diagnosed Date Autogenerated Problem 09/20/2025 Insurance [employer] Advance Directives Documents on File Type Date Recorded Patient Health Safety Coordinator Expl angelique Health Care Proxy 01/09/2020 10:59 AM Demetria Boucher * Presumed Full Code (Latest Code Status on File) Date Activated Date Inactivated Comments 11/18/2021 8:52 AM 11/18/2021 12:34 PM * Presumed Full Code Date Activated Date Inactivated Comments 08/07/2020 8:55 AM 08/07/2020 12:26 PM Healthcare Agents on File Name Relationship Healthcare Agent Relationshi p Communication Demetria Boucher [facility]ly [facility] Health Care Agent Care Teams Fire Alarm Repairer Relationship Specialty Start Date End Date Chan Wilson [address] [place] [address] PCP - General Internal Medicine 01/09/20
[2025-10-07 11:23] VITALS: BMI 37.2
--- NOTE | 2025-10-07 11:30 | HO.ANESPROP2 ---
Documented by User: Amena Hardy NP 10/07/25 11:30 HPI - Anesthesia Eval Consult details Narrative: 54 yr old female for colonoscopy [facility] Active Problems Active Problems: All Active Problems (Updated 10/07/25 @ 11:21 by Allyson Godinez RN) Diverticulitis (Acute) Gastroparesis (Acute) Greenfield esophagus with dysplasia (Acute) Squamous cell esophageal cancer (Acute) Malnutrition (Acute) Rectal bleed (Acute) Internal hemorrhoid (Acute) Greenfield esophagus (Acute) Past Medical History Medical History Diverticulitis Barretts esophagus Gastroparesis Arthritis Family History Family history of problems with anesthesia: No Surgical History Surgical History History of cryosurgery Hx of bilateral breast reduction surgery Hx of repair of left rotator cuff Hx of section Hx of laparoscopic gastric banding History of esophagogastroduodenoscopy (EGD) H/O colonoscopy History of Problems with Anesthesia: No Social History Social History Are you a primary client care consultant to a significant other at home: No Do you presently have visiting nurse or other home services: No Patient Tobacco Use Status: Never used Tobacco Second Hand Smoke Exposure: Yes Substance Use Frequency: Occasionally Have you been hit, kicked, punched, or otherwise hurt by someone within the past year? If so, by whom?: No Advance Directives: No Advance Directives Information Provided: Yes Patient : No Meds Allergies Allergy/AdvReac Type Severity Reaction Status Date / Time oxycodone (From PERCOCET) Allergy Intermediate IRRITABILITY, Verified 10/09/25 08:12 RASH meperidine (Demerol) Allergy Unknown Unknown Verified 10/09/25 08:12 hydrocodone (From VICODIN) AdvReac Intermediate Rash Verified 10/09/25 08:12 Home Medications ?Medication ?Instructions ?Recorded ?Confirmed ?Last Taken ?Type lorazepam 1 mg tablet 1 tab PO BID PRN anxiety 02/09/21 10/07/25 10/09/25 History fluticasone propionate 50 1 spray intranasal DAILY 06/29/24 10/07/25 Unknown History mcg/actuation nasal spray,suspension fluoxetine 40 mg capsule 40 mg PO DAILY 09/17/24 10/07/25 Unknown History Exam Height,Weight and Vital Signs: Height 4 ft 9 in Weight 78.018 kg Assessment and Plan Final Anesthetic Review Family History of Problems with Anesthesia: No History of Problems with Anesthesia: No Documented by User: Leta Mc MD 10/09/25 08:45 PMFSH Past Medical History Medical History Diverticulitis Barretts esophagus Gastroparesis Arthritis Surgical History Surgical History History of cryosurgery Hx of bilateral breast reduction surgery Hx of repair of left rotator cuff Hx of section Hx of laparoscopic gastric banding History of esophagogastroduodenoscopy (EGD) H/O colonoscopy Social History Social History Are you a primary client care consultant to a significant other at home: No Do you presently have visiting nurse or other home services: No Patient Tobacco Use Status: Never used Tobacco Second Hand Smoke Exposure: Yes Substance Use Frequency: Occasionally Have you been hit, kicked, punched, or otherwise hurt by someone within the past year? If so, by whom?: No Advance Directives: No Advance Directives Information Provided: Yes Patient : No Meds Allergies Allergy/AdvReac Type Severity Reaction Status Date / Time oxycodone (From PERCOCET) Allergy Intermediate IRRITABILITY, Verified 10/09/25 08:12 RASH meperidine (Demerol) Allergy Unknown Unknown Verified 10/09/25 08:12 hydrocodone (From VICODIN) AdvReac Intermediate Rash Verified 10/09/25 08:12 Home Medications ?Medication ?Instructions ?Recorded ?Confirmed ?Last Taken ?Type lorazepam 1 mg tablet 1 tab PO BID PRN anxiety 02/09/21 10/07/25 10/09/25 History fluticasone propionate 50 1 spray intranasal DAILY 06/29/24 10/07/25 Unknown History mcg/actuation nasal spray,suspension fluoxetine 40 mg capsule 40 mg PO DAILY 09/17/24 10/07/25 Unknown History Exam Airway Mallampati Class: II (crown top right front) TM Dist: >3cm Neck ROM: Full Heart: rrr Lungs: cta Assessment and Plan Assessment Anesthesia Assessment: Anesthesia Plan Discussed and Chart Reviewed Final Anesthetic Review NPO: Yes ASA Class: II Final Preanesthetic Review: No Changes in Pt Med Stat, Meds/Allgs Chart Reviewed and Consent Obtained/Reviewed Patient Risk: Low Procedure Risk: Low Anesthetic Plan Anesthetic Plan: GA Disposition: Standard PACU
[2025-10-09 08:10] VITALS: BMI 38.9
[2025-10-09] MEDS: Lactated Ringers 1,000 ML 100 ML IVCONT (08:15)
[2025-10-09 08:31] VITALS: BP 124/63; PULSE 68; RESP 18; TEMP 36.6; O2SAT 96
--- NOTE | 2025-10-09 09:01 | MHC.SHP ---
Pre-Procedural Eval Section A - 24 Hr Update-Section A only Date of Service: 10/09/25 Section B - Complete if H&P > 30 days Chief Complaint: Diverticulitis of intestine, part unspecified, Relevant Family History (Specify if Yes): No Relevant Social History: None Present Medications: see Short Stay Collaborative assessment Medical History: Significant History (Arthritis) History of Previous Operations: Relevant previous surgery/procedure and date(s) (History of cryosurgery Hx of bilateral breast reduction surgery Hx of repair of left rotator cuff Hx of section Hx of laparoscopic gastric banding History of esophagogastroduodenoscopy (EGD) H/O colonoscopy) Allergies: Allergies Allergy/AdvReac Type Severity Reaction Status Date / Time oxycodone (From PERCOCET) Allergy Intermediate IRRITABILITY, Verified 10/09/25 08:12 RASH meperidine (Demerol) Allergy Unknown Unknown Verified 10/09/25 08:12 hydrocodone (From VICODIN) AdvReac Intermediate Rash Verified 10/09/25 08:12 Review of Systems Sugical H&P ROS: Negative: Constitution, Cardiovascular, Respiratory, Neurological, Psychiatric, Hem-Onc, Allergic/Immunologic, Gastrointestinal, Genitourinary, Musculoskeletal, Integumentary, Endocrine and Eyes/Ears/Nose/Throat Exam Surgical H&P Exam: Normal: HEENT, Normal: Heart, Normal: Lungs, Normal: Extremities, Normal: Abdomen, Normal: Skin and Normal: Neurological Plan Diagnosis/Plan: Unchanged I have reviewed the history and physical and performed a pertinent physical examination on my patient. No changes have occurred unless specified. Time Spent With Patient Time: Total time managing care of this patient today ____ minutes.
--- NOTE | 2025-10-09 09:32 | HO.OPN-COLON ---
Colonoscopy Operative Note Operative Note Date of Service: 10/09/25 Narrative: Operative Information Procedure Description: Colonoscopy Indication: screening Anesthesia: MAC COLONOSCOPY Instrument: Olympus variable stiffness pediatric scope 190L Colonoscopy Monitoring: Vital signs and clinical assessment, continuous EKG monitoring, Pulse oximetry, Carbon Dioxide monitoring and blood pressure monitoring were done throughout the procedure. Colon withdrawal time was 12 minutes. Procedure: The patient was placed in the left lateral decubitis position and pre-procedure medications were administered. After a digital rectal examination of the ano-rectum, the video colonoscope was inserted into the rectum and advanced through the colon to the cecum/TI. The colonoscope was slowly withdrawn in a retrograde panoramic fashion and the colon mucosa was carefully examined including a retroflexed view of the rectum. Findings and interventions are described below. Procedure Difficulty: easy Findings: Terminal Ileum-normal Cecum:normal right sided retroflxxion- normal Ascending Colon: normal Transverse Colon -normal Descending Colon:normal Sigmoid Colon: mild diverticulosis Rectum: Retroflexion with small internal hemorrhoids seen, grade I Anorectum - normal Intervention: none Colon preparation: [place] Bowel Preparation Scale Right colon; 2 Transverse colon: 2 Left colon; 2 (0 = Unprepared colon segment with mucosa not seen due to solid stool that cannot be cleared. 1 = Portion of mucosa of the colon segment seen, but other areas of the colon segment not well seen due to staining, residual stool and/or opaque liquid. 2 = Minor amount of residual staining, small fragments of stool and/or opaque liquid, but mucosa of colon segment seen well. 3 = Entire mucosa of colon segment seen well with no residual staining, small fragments of stool or opaque liquid) Impression and Post Procedure Diagnosis: diverticulosis internal hemorrhoids Plan: High fiber diet leaflet Avoid straining at stool, epsom salts and sitz bath, anusol supps or cream Repeat Colonoscopy in 5 years due to prior hx of colon polyps or earlier if clinically indicated Above findings were reviewed with the patient and relevant handouts were provided if indicated.
[2025-10-09 09:35] VITALS: BP 95/40; PULSE 65; RESP 14; TEMP 36.1; O2SAT 95
[2025-10-09 09:48] VITALS: BP 101/58; PULSE 60; RESP 20; TEMP 36.4; O2SAT 100
== END 2025-10-09 10:23 | disposition home or self-care (01) ==
PROVIDERS: PCP Internal Medicine; Visit Provider Internal Medicine Gastroenterology
PROC: 0DJD8ZZ Inspection of Lower Intestinal Tract, Via Natural or Artificial Opening Endoscopic (ICD-10-PCS; CPT 45378; principal; 2025-10-09 09:30)
DX: Z12.11 Encounter for screening for malignant neoplasm of colon (principal); K57.30 Diverticulosis of large intestine without perforation or abscess without bleeding; C15.9 Malignant neoplasm of esophagus, unspecified; K64.0 First degree hemorrhoids
CPT/HCPCS: 45378; J2704

== ENCOUNTER → 2025-10-09 07:57 | Outpatient (BNV) | payer OTHER, SELFPAY | PROVIDERS: PCP Internal Medicine; Visit Provider Internal Medicine Gastroenterology | DX: Z12.11 Encounter for screening for malignant neoplasm of colon (principal); K57.30 Diverticulosis of large intestine without perforation or abscess without bleeding; K64.0 First degree hemorrhoids | CPT/HCPCS: 45378 ==